=== PATIENT | male | born 1960 ===

== ENCOUNTER 2018-04-10 04:06 | Inpatient (IN) | payer MEDICARE ==
[2018-04-10] MEDS ORDERED: Sodium Chloride 0.9% 1,000 ML IV STA ×3 (04:37→05:49)
[2018-04-10] MEDS ORDERED: Iohexol 240 (50 ml) PO ONE (04:50)
[2018-04-10] MEDS ORDERED: Iohexol 240 (50 ml) ONE (05:00)
[2018-04-10] MEDS ORDERED: Morphine 4 MG/ML VIAL ONE ×3 (05:04→16:12)
--- NOTE | 2018-04-10 05:29 | ED PDOC ---
HPI: Male Pain Time Seen by Provider: 04/10/18 04:27 Chief Complaint (Nursing): Abdominal Pain Chief Complaint (Provider): problem History Per: Patient History/Exam Limitations: no limitations Onset/Duration Of Symptoms: Days (x 2) Current Symptoms Are (Timing): Still Present Quality Of Discomfort: "Pain" Associated Symptoms: Urinary Symptoms Additional Complaint(s): 57 year old male with a history of Hepatitis C and liver cirrhosis presents to the ED for evaluation of vomiting, abdominal pain and testicle pain for two days. Patient report intermittent vomiting, dark colored urine and pale colored stool associated with acute abdominal pain, testicular swelling and pain as well as redness to scrotal area and penis. Denies fever, cough, chest pain and shortness of breath. PMD: none provided Past Medical History Reviewed: Historical Data, Nursing Documentation, Vital Signs Vital Signs: Last Vital Signs Temp 98.0 F 04/10/18 04:21 Pulse 116 H 04/10/18 04:21 Resp 18 04/10/18 04:21 BP 143/75 04/10/18 04:21 Pulse Ox 98 04/10/18 04:21 - Medical History PMH: Hepatitis (C) Other PMH: Liver cirrhosis - Surgical History Surgical History: No Surg Hx - Family History Family History: States: Unknown Family Hx - Home Medications Home Medications: Ambulatory Orders Medication Instructions Recorded RX: Clonazepam [Klonopin] 1 mg PO BID 04/10/18 - Allergies Allergies/Adverse Reactions: Allergies Allergy/AdvReac Type Severity Reaction Status Date / Time paroxetine [From Paxil] Allergy Mild RASH Verified 04/10/18 04:33 quetiapine [From Seroquel] Allergy Mild RASH Verified 04/10/18 04:33 Review of Systems ROS Statement: Except As Marked, All Systems Reviewed And Found Negative Constitutional: Negative for: Fever Cardiovascular: Negative for: Chest Pain Respiratory: Negative for: Cough, Shortness of Breath Gastrointestinal: Positive for: Vomiting (intermittent), Abdominal Pain, Other (pale stool) Genitourinary Male: Positive for: Scrotal Pain (testicular swelling; pain and redness to to scrotal area and penis), Other (dark urine). Negative for: Dysuria, Incontinence, Hematuria, Penile Discharge Skin: Negative for: Rash Physical Exam - Reviewed Nursing Documentation Reviewed: Yes Vital Signs Reviewed: Yes - Physical Exam Appears: Positive for: No Acute Distress Head Exam: Positive for: ATRAUMATIC, NORMAL INSPECTION, NORMOCEPHALIC Skin: Positive for: Warm, Dry Eye Exam: Positive for: EOMI, Normal appearance, PERRL Neck: Positive for: Normal, Painless ROM, Supple Cardiovascular/Chest: Positive for: Regular Rate, Rhythm. Negative for: Murmur Respiratory: Positive for: Normal Breath Sounds. Negative for: Wheezing, Respiratory Distress Gastrointestinal/Abdominal: Positive for: Soft, Tenderness (diffuse tenderness). Negative for: Guarding, Rebound Male Genital Exam: Positive for: erythema (erythematous, indurated rash to the penis extending over the scrotal surface) Back: Positive for: Normal Inspection Extremity: Positive for: Normal ROM (upper and lower extremities). Negative for: Deformity, Swelling Neurologic/Psych: Positive for: Alert, Oriented. Negative for: Motor/Sensory Deficits - Laboratory Results Result Diagrams: 04/10/18 05:21 04/10/18 05:21 - ECG O2 Sat by Pulse Oximetry: 98 (RA) Pulse Ox Interpretation: Normal Medical Decision Making Medical Decision Makin:37 Impression: 57 year old male with abdominal pain, diarrheal illness and cellulitic process to perineum --CMP --CBC --Lipase --Lactic Acid --Urine dip --UA --CT Abd & Pelvis --Omnipaque 50 ml PO --PTT/PT --Morphine 4 mg IVP --Zofran 4 mg IV --Blood cx --Infectious [place] --Testes US 05:50 --EKG --CXR --Lactic Acid --Morphine 4 mg IV --NS IV --Vancomycin 1 gm in NS 250 ml --Zosyn 3.375 gm in NS 100 ml IV 07:00 --Patient signed out to Dr Gupta pending CT, US and reeval. Scribe Attestation: Documented by Radha Aleman acting as a scribe for Jefferson S Sikand MD Provider Scribe Attestation: All medical record entries made by the Scribe were at my direction and personally dictated by me. I have reviewed the chart and agree that the record accurately reflects my personal performance of the history, physical exam, m edical decision making, and the department course for this patient. I have also personally directed, reviewed, and agree with the discharge instructions and disposition. Disposition - Clinical Impression Clinical Impression: Sahil gangrene - Patient ED Disposition Is Patient to be Admitted: Transfer of Care - Disposition Disposition: Transfer of Care Disposition Time: 07:00 Condition: FAIR Patient Signed Over To: Tanmay Gupta Handoff Comments: pending CT and US
[2018-04-10 05:39] LABS: BASO % 0.1 % (0.0-2.0); EOS # 0.1 K/uL (0.0-0.7); EOS % 1.8 % (0.0-4.0); HEMOGLOBIN 13.7 g/dL (12.0-18.0); LYMPH # 0.3 K/uL (1.0-4.3); LYMPH % 7.3 % (20.0-40.0); MEAN CELL VOLUME 115.4 fl (80.0-94.0); MEAN CORPUSCULAR HEMOGLOBIN 38.8 pg (27.0-31.0); MEAN CORPUSCULAR HGB CONC 33.7 g/dL (33.0-37.0); MEAN PLATELET VOLUME 8.4 fl (7.2-11.7); MONO # 0.3 K/uL (0.0-0.8); MONO % 6.4 % (0.0-10.0); NEUT % 84.4 % (50.0-75.0); PLATELET COUNT 59 K/uL (130-400); RBC 3.52 Mil/uL (4.40-5.90); RED CELL DISTRIBUTION WIDTH 18.7 % (11.5-14.5); WHITE BLOOD COUNT 4.7 K/uL (4.8-10.8)
[2018-04-10 05:42] LABS: INR 2.3; PROTHROMBIN TIME 25.6 Seconds (9.8-13.1)
[2018-04-10 05:43] LABS: ALB/GLOB RATIO 0.4 (1.0-2.1); ALBUMIN 1.9 g/dL (3.5-5.0); ALT/SGPT 55 U/L (21-72); AST/SGOT 65 U/L (17-59); BLOOD UREA NITROGEN 23 mg/dl (9-20); CALCIUM 8.3 mg/dL (8.4-10.2); GFR NON-AFRICAN AMERICAN > 60; LIPASE 228 U/L (23-300)
[2018-04-10 05:45] LABS: PARTIAL THROMBOPLASTIN TIME 44.6 Seconds (25.6-37.1)
[2018-04-10] MEDS ORDERED: Morphine 4 MG/ML VIAL IVP ONE (05:45)
[2018-04-10] MEDS ORDERED: Piperacillin/Tazobact 3.375 GM in Sodium Chloride 0.9% 100 ML IV STA (05:49)
[2018-04-10 06:19] LABS: BANDS 2 % (0-2); EOSINOPHIL 1 % (0-7); LYMPHOCYTE 9 % (20-50); MONOCYTE 6 % (0-10); NEUTROPHIL 81 % (42-75); PLATELET ESTIMATE DECREASED (NORMAL); REACTIVE LYMPHOCYTES 1 % (0-0); TOTAL CELLS COUNTED 100
[2018-04-10 06:20] LABS: ANISOCYTOSIS SLIGHT
--- NOTE | 2018-04-10 07:13 | ED PDOC ---
- Laboratory Results Result Diagrams: 04/10/18 05:21 04/10/18 05:21 Interpretation Of Abn Labs: lactate elevated - ECG ECG: Positive for: Interpreted By Me, Viewed By Me ECG Rhythm: Positive for: Normal QRS, Sinus Rhythm O2 Sat by Pulse Oximetry: 98 (RA) Pulse Ox Interpretation: Normal - Radiology X-Ray: Interpreted by Me, Viewed By Me X-Ray Interpretation: No Acute Disease - CT Scan/US US Other Rad Studies (CT/US): Read By Radiologist Other Rad Interpretation: scrotal cellulitis; orchitis b/l - Progress ED Course And Treament: 1315: Spoke with surgery resident who saw pt. and spoke with Dr. Finch. They want urology consulted. 1335: Stable. Pain controlled. Spoke with Dr. De León. Made aware of presen tation, findings, and ct read. Made aware of moderate to severe erythema and significant joel gangrene. Does not want surgical room ready. States he will see pt. later and determine next step. Continue antibiotics and consult ID. 1339: Stable. Spoke with Dr. Tena. Made aware of all findings and presentation. Will admit tele. 1345: Spoke with Dr. Carbajal. Agrees with sandra and saw. No additional tx at this time. - Critical Care Total Time (In Min): 30 Documented Critical Care: Time excludes all time spent performint seperately billable procedures Medical Decision Making Medical Decision Makin 57 y/o male with abdominal pain and testicular swelling with cellulitis in the area, endorsed by Dr. Morales, pending US and CT. 0853 Testicular US FINDINGS: RIGHT TESTICLE: Measures cm. 2.8 x 2.0 x 2.0. Homogeneous echotexture. Diffusely increased vascularity consistent with acute orchitis. No mass. RIGHT EPIDIDYMIS: Normal size. Diffusely increased vascularity. Consistent with acute epididymitis. No mass. LEFT TESTICLE: Measures 2.8 x 2.1 x 1.8 cm. Homogeneous echotexture. Diffusely increased vascularity consistent with acute orchitis. No mass. LEFT EPIDIDYMIS: Normal size. Diffusely increased vascularity. Consistent with acute epididymis .No mass. HYDROCELE: None. VARICOCELE: None. OTHER FINDINGS: Heterogeneous diffusely thickened scrotal wall with hypervascularity suggestive of cellulitis. IMPRESSION: Suspect bilateral epididymo-orchitis with scrotal cellulitis. No evidence of neoplasm. No evidence of testicular torsion. Scribe Attestation: Documented by Yaquelin Siddiqi, acting as a scribe for Tanmay Gupta MD. Provider Scribe Attestation: All medical record entries made by the Scribe were at my direction and personally dictated by me. I have reviewed the chart and agree that the record accurately reflects my personal performance of the history, physical exam, medical decision making, and the department course for this patient. I have also personally directed, reviewed, and agree with the discharge instructions and disposition. Disposition Counseled Patient/Family Regarding: Studies Performed, Diagnosis - Clinical Impression Clinical Impression: Joel gangrene - POA Present On Arrival: None - Disposition Disposition: Admitted as In-Patient Disposition Time: 13:30 Condition: FAIR
[2018-04-10] MEDS ORDERED: Iohexol 300 100 ML IJ ONE (07:52)
[2018-04-10] MEDS ORDERED: Sodium Chloride 0.9% 50 ML IV ONE (07:53)
--- NOTE | 2018-04-10 08:56 | US ---
Date of service: 04/10/2018 HISTORY: testicular pain TECHNIQUE: Realtime sonography through the scrotum with color and doppler flow. COMPARISON: None Available. FINDINGS: RIGHT TESTICLE: Measures cm. 2.8 x 2.0 x 2.0. Homogeneous echotexture. Diffusely increased vascularity consistent with acute orchitis. No mass. RIGHT EPIDIDYMIS: Normal size. Diffusely increased vascularity. Consistent with acute epididymitis. No mass. LEFT TESTICLE: Measures 2.8 x 2.1 x 1.8 cm. Homogeneous echotexture. Diffusely increased vascularity consistent with acute orchitis. No mass. LEFT EPIDIDYMIS: Normal size. Diffusely increased vascularity. Consistent with acute epididymis.No mass. HYDROCELE: None. VARICOCELE: None. OTHER FINDINGS: Heterogeneous diffusely thickened scrotal wall with hypervascularity suggestive of cellulitis. IMPRESSION: Suspect bilateral epididymo-orchitis with scrotal cellulitis. No evidence of neoplasm. No evidence of testicular torsion.
--- NOTE | 2018-04-10 09:24 | CARD ---
APPROVED REPORT Date of service: 04/10/2018 EKG Measurement Heart [id number] <Conclusion> Normal sinus rhythm Left ventricular hypertrophy with repolarization abnormality Prolonged QT Abnormal ECG
--- NOTE | 2018-04-10 12:30 | CT ---
Date of service: 04/10/2018 PROCEDURE: CT Abdomen and Pelvis with contrast HISTORY: abd pain COMPARISON: None. TECHNIQUE: Contrast dose: 95 cc Omnipaque 300 Radiation dose: Total exam DLP = 1050.32 mGy-cm. This CT exam was performed using one or more of the following dose reduction techniques: Automated exposure control, adjustment of the mA and/or kV according to patient size, and/or use of iterative reconstruction technique. FINDINGS: LOWER THORAX: Minimal linear scar/atelectasis right middle lobe and left lower lobe. No infiltrate. No effusion. LIVER: Nodular contour consistent with hepatic cirrhosis. Multiple rounded low-attenuation lesions common nonspecific. No intrahepatic biliary dilatation. GALLBLADDER AND BILE DUCTS: Status post cholecystectomy. Dilated common bile duct up to approximately 13 mm diameter. Uncertain etiology. This is greater than should be expected from cholecystectomy alone. PANCREAS: Unremarkable. No gross lesion or ductal dilatation. SPLEEN: Splenomegaly. The spleen measures approximately 15.6 cm in greatest dimension. No mass. ADRENALS: Unremarkable. No mass. KIDNEYS AND URETERS: Nonobstructing 4 mm left lower pole renal calculus. No renal mass. No hydronephrosis. VASCULATURE: Unremarkable. No aortic aneurysm. There is atherosclerotic calcification of the abdominal aorta. 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 No evidence of esophageal varices. Please note that the portal vein and splenic vein appear patent, without evidence of intraluminal thrombus. BOWEL: No bowel obstruction. Nonspecific mural thickening of some loops of proximal jejunum. Possible enteritis or may be related to hypoalbuminemia associated with hepatocellular disease. APPENDIX: Normal appendix. PERITONEUM: No ascites or pneumoperitoneum. LYMPH NODES: Unremarkable. No enlarged lymph nodes. BLADDER: Unremarkable. REPRODUCTIVE: Normal prostate. Please note that there is emphysematous change in the perineum and scrotum, left greater than right, consistent with for knee a gangrene. There is no evidence of a drainable collection. There is mild bilateral hydrocele. BONES: No acute fracture. OTHER FINDINGS: None. IMPRESSION: Findings consistent with for any a gangrene. Hepatic cirrhosis. Splenomegaly. Varices. Cholecystectomy. Dilated CBD without intrahepatic biliary dilatation. Nonspecific. Mild mural thickening of loops of proximal jejunum, nonspecific. The findings in this examination were discussed by telephone with Dr. Gupta at 12:25 p.m. on 04/10/2018.
--- NOTE | 2018-04-10 12:39 | RAD ---
Date of service: 04/10/2018 HISTORY: admit COMPARISON: 07/26/2011 FINDINGS: LUNGS: No active pulmonary disease. PLEURA: No significant pleural effusion identified, no pneumothorax apparent. CARDIOVASCULAR: No atherosclerotic calcification present No radiographic findings to suggest acute or significant cardiovascular disease. OSSEOUS STRUCTURES: No significant abnormalities. VISUALIZED UPPER ABDOMEN: Normal. OTHER FINDINGS: None. IMPRESSION: No active disease. No significant interval change compared to the prior examination(s). Since Concordant results with the preliminary interpretation rendered by the emergency department physician procedure.
[2018-04-10 13:22] LABS: URINE BILIRUBIN SMALL (NEGATIVE); URINE BLOOD SMALL (NEGATIVE); URINE CLARITY CLEAR (Clear); URINE COLOR AMBER (YELLOW); URINE GLUCOSE (UA) NEG (NEGATIVE); URINE LEUKOCYTE ESTERASE NEG Leu/uL (Negative); URINE PROTEIN NEGATIVE (NEGATIVE)
--- NOTE | 2018-04-10 14:37 | CP.PCM.CON ---
History of Present Illness - History of Present Illness History of Present Illness: SURGERY CONSULT NOTE FOR DR. ROQUE Reason: gangrene of scrotal region 57M presents with pain and swelling in the scrotal region. Patient states he has had two days of symptoms. He admits to pain spreading in the perineum. He denies having these symptoms before in the past, denies abdominal pain, nausea, vomiting, fevers or chills. She admits to normal bowel movements. Patient denies any recent trauma to the region, denies any history of STDs, denies noticeable purulent drainage. PMH: Hepatic cirrhosis, DM PSH: Cholecystectomy Social: Admits to tobacco and alcohol abuse, admits to illicit drug use Allergies: as per chart Past Patient History - Past Social History Smoking Status: Never Smoked - PSYCHIATRIC Hx Substance Use: No - SURGICAL HISTORY Hx Surgeries: No Meds Allergies/Adverse Reactions: Allergies Allergy/AdvReac Type Severity Reaction Status Date / Time paroxetine [From Paxil] Allergy Mild RASH Verified 04/10/18 04:33 quetiapine [From Seroquel] Allergy Mild RASH Verified 04/10/18 04:33 Physical Exam - Constitutional Appears: Non-toxic, No Acute Distress Additional comments: very uncomfortable due to pain - Eye Exam Eye Exam: EOMI, PERRL - ENT Exam ENT Exam: Mucous Membranes Moist - Respiratory Exam Respiratory Exam: Clear to Auscultation Bilateral, NORMAL BREATHING PATTERN - Cardiovascular Exam Cardiovascular Exam: REGULAR RHYTHM, +S1, +S2 - GI/Abdominal Exam GI & Abdominal Exam: Soft. absent: Distended, Firm, Guarding, Rebound, Rigid, Tenderness - Rectal Exam Additional comments: erythema and tenderness perianally, scrotal swelling with severe erythema, blood noted in perineum region, no mass on rectal exam - Extremities Exam Extremities exam: Negative for: pedal edema, tenderness - Neurological Exam Neurological exam: Alert, Oriented x3 - Psychiatric Exam Psychiatric exam: Normal Affect, Normal Mood - Skin Skin Exam: Dry, Intact, Normal Color, Warm Results - Vital Signs Recent Vital Signs: Last Vital Signs Temp 98.0 F 04/10/18 04:21 Pulse 116 H 04/10/18 04:21 Resp 18 04/10/18 04:21 BP 143/75 04/10/18 04:21 Pulse Ox 98 04/10/18 13:51 - Labs Result Diagrams: 04/10/18 05:21 04/10/18 05:21 Labs: Laboratory Results - last 24 hr 04/10/18 04/10/18 04/10/18 05:21 05:21 05:21 WBC 4.7 L RBC 3.52 L Hgb 13.7 Hct 40.6 MCV 115.4 H MCH 38.8 H MCHC 33.7 RDW 18.7 H Plt Count 59 L MPV 8.4 Neut % (Auto) 84.4 H Lymph % (Auto) 7.3 L [place] % (Auto) 6.4 Eos % (Auto) 1.8 Baso % (Auto) 0.1 Neut # (Auto) 4.0 Lymph # (Auto) 0.3 L [place] # (Auto) 0.3 Eos # (Auto) 0.1 Baso # (Auto) 0.0 Neutrophils % (Manual) 81 H Band Neutrophils % 2 Lymphocytes % (Manual) 9 L Reactive Lymphs % 1 H Monocytes % (Manual) 6 Eosinophils % (Manual) 1 Platelet Estimate Decreased L Anisocytosis (manual) Slight Macrocytosis (manual) Moderate PT INR APTT Sodium 134 Potassium 3.6 Chloride 96 L Carbon Dioxide 27 Anion Gap 15 BUN 23 H Creatinine 1.0 Est GFR ( Amer) > 60 Est GFR (Non-Af Amer) > 60 Random Glucose 241 H Lactic Acid Calcium 8.3 L Total Bilirubin 6.7 H AST 65 H ALT 55 Alkaline Phosphatase 211 H Total Protein 6.3 Albumin 1.9 L Globulin 4.4 H Albumin/Globulin Ratio 0.4 L Lipase 228 Urine Color Urine Clarity Urine pH Ur Specific [place] Urine Protein Urine Glucose (UA) Urine Ketones Urine Blood Urine Nitrate Urine Bilirubin Urine Urobilinogen Ur Leukocyte Esterase Urine RBC (Auto) Urine Microscopic WBC Infectious [place] Assay Negative 04/10/18 04/10/18 04/10/18 05:21 05:21 09:25 WBC RBC Hgb Hct MCV MCH MCHC RDW Plt Count MPV Neut % (Auto) Lymph % (Auto) [place] % (Auto) Eos % (Auto) Baso % (Auto) Neut # (Auto) Lymph # (Auto) Cass[place] # (Auto) Eos # (Auto) Baso # (Auto) Neutrophils % (Manual) Band Neutrophils % Lymphocytes % (Manual) Reactive Lymphs % Monocytes % (Manual) Eosinophils % (Manual) Platelet Estimate Anisocytosis (manual) Macrocytosis (manual) PT 25.6 H INR 2.3 APTT 44.6 H Sodium Potassium Chloride Carbon Dioxide Anion Gap BUN Creatinine Est GFR ( Amer) Est GFR (Non-Af Amer) Random Glucose Lactic Acid 4.6 H* 2.4 H Calcium Total Bilirubin AST ALT Alkaline Phosphatase Total Protein Albumin Globulin Albumin/Globulin Ratio Lipase Urine Color Urine Clarity Urine pH Ur Specific [place] Urine Protein Urine Glucose (UA) Urine Ketones Urine Blood Urine Nitrate Urine Bilirubin Urine Urobilinogen Ur Leukocyte Esterase Urine RBC (Auto) Urine Microscopic WBC Infectious [place] Assay 04/10/18 12:30 WBC RBC Hgb Hct MCV MCH MCHC RDW Plt Count MPV Neut % (Auto) Lymph % (Auto) [place] % (Auto) Eos % (Auto) Baso % (Auto) Neut # (Auto) Lymph # (Auto) [place] # (Auto) Eos # (Auto) Baso # (Auto) Neutrophils % (Manual) Band Neutrophils % Lymphocytes % (Manual) Reactive Lymphs % Monocytes % (Manual) Eosinophils % (Manual) Platelet Estimate Anisocytosis (manual) Macrocytosis (manual) PT INR APTT Sodium Potassium Chloride Carbon Dioxide Anion Gap BUN Creatinine Est GFR ( Amer) Est GFR (Non-Af Amer) Random Glucose Lactic Acid Calcium Total Bilirubin AST ALT Alkaline Phosphatase Total Protein Albumin Globulin Albumin/Globulin Ratio Lipase Urine Color [place]ilar Urine Clarity Clear Urine pH 6.0 Ur Specific [place] 1.036 H Urine Protein Negative Urine Glucose (UA) Neg Urine Ketones Negative Urine Blood Small Urine Nitrate Negative Urine Bilirubin Small Urine Urobilinogen 4.0 Ur Leukocyte Esterase Neg Urine RBC (Auto) 2 Urine Microscopic WBC 3 Infectious [place] Assay Assessment & Plan - Assessment and Plan (Free Text) Assessment: 57M with Sahil's gangrene CT shows emphysematous changes in scrotal and perineum Plan: - NPO - IVF - Pain control - Antibiotics - FFP transfusion - PRBCs on hold - Patient will require an operation - Urologist Dr. Philippe on board Discussed with Dr Carmelo Lomas
[2018-04-10] MEDS ORDERED: Morphine 4 MG/ML VIAL IV ONE (14:54)
[2018-04-10] MEDS ORDERED: Sodium Chloride 0.9% 1,000 ML IV SCH ×2 (15:00→15:15)
[2018-04-10] MEDS ORDERED: Rocuronium 10 mg/ml (5 ml) ONE (16:32)
[2018-04-10] MEDS ORDERED: Succinylcholine Chloride 20 mg/ml Syr (5 ml) IV ONE (16:32)
[2018-04-10] MEDS ORDERED: Etomidate 20 mg/10ml Inj IV ONE (16:32)
[2018-04-10] MEDS ORDERED: Gentamicin 80mg/50ml NS 0 MG/0 ML BAG IVPB ONE (17:09)
--- NOTE | 2018-04-10 17:46 | ED PDOC ---
- Laboratory Results Result Diagrams: 04/10/18 05:21 04/10/18 05:21 - ECG O2 Sat by Pulse Oximetry: 95 Medical Decision Making Medical Decision Makin:00 Patient is signed out to me by Tanmay Gupta MD for veinous occlusion pending bloodwork and evaluation by . Scribe Attestation: Documented byJulissa Russell, acting as a scribe for Julissa Nails MD. Provider Scribe Attestation: All medical record entries made by the Scribe were at my direction and personally dictated by me. I have reviewed the chart and agree that the record accurately reflects my personal performance of the history, physical exam, medical decision making, and the department course for this patient. I have also personally directed, reviewed, and agree with the discharge instructions and disposition. Disposition - Clinical Impression Clinical Impression: Sahil gangrene - Disposition Condition: FAIR
--- NOTE | 2018-04-10 18:15 | CP.PCM.HP ---
History of Present Illness - History of Present Illness History of Present Illness: This is a 57 y/o male admitted for increasing swelling and redness of scrotal sac and spreading to the perineal area which started 2 days ago. Sx was associated with pain and tenderness. 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 Lactic acid was 4.2 latelet is 59 WBC is normal. He denies any fever. 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 Hep C was treated recently. Present on Admission - Present on Admission Any Indicators Present on Admission: No History of DVT/PE: No History of Uncontrolled Diabetes: No Urinary Catheter: No Decubitus Ulcer Present: No Past Patient History - Past Social History Smoking Status: Never Smoked - PSYCHIATRIC Hx Substance Use: No - SURGICAL HISTORY Hx Surgeries: No Meds Allergies/Adverse Reactions: Allergies Allergy/AdvReac Type Severity Reaction Status Date / Time paroxetine [From Paxil] Allergy Mild RASH Verified 04/10/18 04:33 quetiapine [From Seroquel] Allergy Mild RASH Verified 04/10/18 04:33 Physical Exam - Exam Exam: Scrotal Swelling Additional comments: redness and tenderness of the whole scrotal sac Results - Vital Signs Recent Vital Signs: Last Vital Signs Temp 97.8 F 04/10/18 17:44 Pulse 111 H 04/10/18 17:44 Resp 18 04/10/18 17:44 BP 139/66 04/10/18 17:44 Pulse Ox 95 04/10/18 17:46 - Labs Result Diagrams: 04/10/18 05:21 04/10/18 05:21 Labs: Laboratory Results - last 24 hr 04/10/18 04/10/18 04/10/18 05:21 05:21 05:21 WBC 4.7 L RBC 3.52 L Hgb 13.7 Hct 40.6 MCV 115.4 H MCH 38.8 H MCHC 33.7 RDW 18.7 H Plt Count 59 L MPV 8.4 Neut % (Auto) 84.4 H Lymph % (Auto) 7.3 L Tyrrell % (Auto) 6.4 Eos % (Auto) 1.8 Baso % (Auto) 0.1 Neut # (Auto) 4.0 Lymph # (Auto) 0.3 L Tyrrell # (Auto) 0.3 Eos # (Auto) 0.1 Baso # (Auto) 0.0 Neutrophils % (Manual) 81 H Band Neutrophils % 2 Lymphocytes % (Manual) 9 L Reactive Lymphs % 1 H Monocytes % (Manual) 6 Eosinophils % (Manual) 1 Platelet Estimate Decreased L Anisocytosis (manual) Slight Macrocytosis (manual) Moderate PT INR APTT Sodium 134 Potassium 3.6 Chloride 96 L Carbon Dioxide 27 Anion Gap 15 BUN 23 H Creatinine 1.0 Est GFR ( Amer) > 60 Est GFR (Non-Af Amer) > 60 Random Glucose 241 H Lactic Acid Calcium 8.3 L Total Bilirubin 6.7 H AST 65 H ALT 55 Alkaline Phosphatase 211 H Total Protein 6.3 Albumin 1.9 L Globulin 4.4 H Albumin/Globulin Ratio 0.4 L Lipase 228 Urine Color Urine Clarity Urine pH Ur Specific [place] Urine Protein Urine Glucose (UA) Urine Ketones Urine Blood Urine Nitrate Urine Bilirubin Urine Urobilinogen Ur Leukocyte Esterase Urine RBC (Auto) Urine Microscopic WBC Infectious Tyrrell Assay Negative Blood Type Blood Type Confirm Antibody Screen Crossmatch BBK History Checked 04/10/18 04/10/18 04/10/18 05:21 05:21 09:25 WBC RBC Hgb Hct MCV MCH MCHC RDW Plt Count MPV Neut % (Auto) Lymph % (Auto) Tyrrell % (Auto) Eos % (Auto) Baso % (Auto) Neut # (Auto) Lymph # (Auto) Tyrrell # (Auto) Eos # (Auto) Baso # (Auto) Neutrophils % (Manual) Band Neutrophils % Lymphocytes % (Manual) Reactive Lymphs % Monocytes % (Manual) Eosinophils % (Manual) Platelet Estimate Anisocytosis (manual) Macrocytosis (manual) PT 25.6 H INR 2.3 APTT 44.6 H Sodium Potassium Chloride Carbon Dioxide Anion Gap BUN Creatinine Est GFR ( Amer) Est GFR (Non-Af Amer) Random Glucose Lactic Acid 4.6 H* 2.4 H Calcium Total Bilirubin AST ALT Alkaline Phosphatase Total Protein Albumin Globulin Albumin/Globulin Ratio Lipase Urine Color Urine Clarity Urine pH Ur Specific [place] Urine Protein Urine Glucose (UA) Urine Ketones Urine Blood Urine Nitrate Urine Bilirubin Urine Urobilinogen Ur Leukocyte Esterase Urine RBC (Auto) Urine Microscopic WBC Infectious Tyrrell Assay Blood Type Blood Type Confirm Antibody Screen Crossmatch BBK History Checked 01/03/19 01/03/19 01/03/19 12:30 15:45 16:05 WBC RBC Hgb Hct MCV MCH MCHC RDW Plt Count MPV Neut % (Auto) Lymph % (Auto) Tyrrell % (Auto) Eos % (Auto) Baso % (Auto) Neut # (Auto) Lymph # (Auto) Tyrrell # (Auto) Eos # (Auto) Baso # (Auto) Neutrophils % (Manual) Band Neutrophils % Lymphocytes % (Manual) Reactive Lymphs % Monocytes % (Manual) Eosinophils % (Manual) Platelet Estimate Anisocytosis (manual) Macrocytosis (manual) PT INR APTT Sodium Potassium Chloride Carbon Dioxide Anion Gap BUN Creatinine Est GFR ( Amer) Est GFR (Non-Af Amer) Random Glucose Lactic Acid Calcium Total Bilirubin AST ALT Alkaline Phosphatase Total Protein Albumin Globulin Albumin/Globulin Ratio Lipase Urine Color Pilar Urine Clarity Clear Urine pH 6.0 Ur Specific [place] 1.036 H Urine Protein Negative Urine Glucose (UA) Neg Urine Ketones Negative Urine Blood Small Urine Nitrate Negative Urine Bilirubin Small Urine Urobilinogen 4.0 Ur Leukocyte Esterase Neg Urine RBC (Auto) 2 Urine Microscopic WBC 3 Infectious Tyrrell Assay Blood Type B POSITIVE Blood Type Confirm B POSITIVE Antibody Screen Negative Crossmatch See Detail BBK History Checked No verified bt Assessment & Plan (1) Sahil gangrene Status: Acute (2) Liver cirrhosis Status: Acute (3) Thrombocytopenia Status: Acute - Assessment and Plan (Free Text) Plan: Keep NPO IV antibiotics Surgical and urology eval ID eval. Medically stable for surgery
[2018-04-10] MEDS ORDERED: Vancomycin 1 g Inj ONE (18:21)
[2018-04-10] MEDS ORDERED: Piperacillin/Tazobact 3.375 gm Inj IVPB ONE (18:21)
[2018-04-10] MEDS ORDERED: Sodium Chloride 0.9% 500 ML IV ONE (18:35)
[2018-04-10] MEDS ORDERED: Lactated Ringer's 1,000 ML IV ONE ×2 (18:36→21:10)
[2018-04-10] MEDS ORDERED: Midazolam 2 MG/2 ML VIAL ONE (18:36)
[2018-04-10] MEDS: Piperacillin/Tazobact 3.375 GM in Sodium Chloride 0.9% 100 ML IVPB SCH ×2 (18:50→23:23)
[2018-04-10] MEDS ORDERED: Neostigmine 1:1000 (1 mg/ml) Inj ONE (19:16)
[2018-04-10] MEDS ORDERED: Sevoflurane - Inhalation Anesthetic Liq (250 ml) ONE (19:18)
--- NOTE | 2018-04-10 19:59 | PCM.SURG1 ---
Surgeon's Initial Post Op Note - Surgeon's Notes Surgeon: Carmelo NAIR, Denae NAIR Glue Maker: Cesilia, PGY3. Rere PGY1 Pre-Operative Diagnosis: Abscess for scrotum and perineum Operative Findings: see operative note Post-Operative Diagnosis: Abscess of scrotum and Perineum Operation Performed: Incision and drainage of scrotal fluid, exploration of scrotal sac, Incision and drainage of perineum Specimen/Specimens Removed: n/a Estimated Blood Loss: EBL {In ML}: 300 Drains Used: Erin Date of Surgery/Procedure: 04/10/18 Time of Surgery/Procedure: 20:00
[2018-04-10] MEDS: HYDROmorphone 0.5 mg/0.5 ml ISec IVP PRN ×2 (20:01→21:02)
[2018-04-10] MEDS ORDERED: HYDROmorphone 0.5 mg/0.5 ml ISec ONE (20:01)
[2018-04-10] MEDS ORDERED: Propofol 10 mg/ml Inj (20 ML) ONE (20:07)
[2018-04-10] MEDS ORDERED: Lactated Ringer's 1,000 ML IV SCH (20:30)
[2018-04-11] MEDS: Piperacillin/Tazobact 3.375 GM in Sodium Chloride 0.9% 100 ML IVPB SCH ×2 (04:57→14:46)
[2018-04-11] MEDS ORDERED: Sodium Chloride 0.9% 1,000 ML IV SCH ×2 (08:15→11:15)
[2018-04-11 09:07] LABS: BASO % 0.1 % (0.0-2.0); EOS # 0.3 K/uL (0.0-0.7); EOS % 2.9 % (0.0-4.0); HEMOGLOBIN 12.3 g/dL (12.0-18.0); LYMPH # 0.6 K/uL (1.0-4.3); MEAN CELL VOLUME 112.2 fl (80.0-94.0); MEAN CORPUSCULAR HEMOGLOBIN 38.7 pg (27.0-31.0); MEAN CORPUSCULAR HGB CONC 34.5 g/dL (33.0-37.0); MEAN PLATELET VOLUME 7.7 fl (7.2-11.7); MONO # 0.5 K/uL (0.0-0.8); MONO % 5.8 % (0.0-10.0); NEUT % 85.2 % (50.0-75.0); NRBC % 0.2 % (0.0-0.0); RBC 3.17 Mil/uL (4.40-5.90); RED CELL DISTRIBUTION WIDTH 20.5 % (11.5-14.5); WHITE BLOOD COUNT 9.4 K/uL (4.8-10.8)
[2018-04-11 09:23] LABS: ALB/GLOB RATIO 0.5 (1.0-2.1); ALBUMIN 1.9 g/dL (3.5-5.0); ALT/SGPT 48 U/L (21-72); AST/SGOT 74 U/L (17-59); BLOOD UREA NITROGEN 16 mg/dl (9-20); CALCIUM 7.6 mg/dL (8.4-10.2); GFR NON-AFRICAN AMERICAN > 60
--- NOTE | 2018-04-11 09:47 | CP.PCM.PN ---
Subjective - Date & Time of Evaluation Date of Evaluation: 04/11/18 Time of Evaluation: 09:40 - Subjective Subjective: SURGERY NOTE FOR DR. ROQUE 57M seen and examined at bedside. Patient states pain as resolved, denies any fevers or chills, states he feels thirsty. Patient was tachycardic throughout the night, s/p FFP and blood transfusion. Objective - Vital Signs/Intake and Output Vital Signs (last 24 hours): Temp Pulse Resp BP Pulse Ox 99.2 F 131 H 20 125/58 L 90 L 04/11/18 08:51 04/11/18 08:51 04/11/18 08:51 04/11/18 08:51 04/11/18 08:51 Intake and Output: 04/11/18 04/11/18 06:59 18:59 Intake Total 1780 Output Total 950 Balance 830 - Medications Medications: Current Medications Hydromorphone HCl (Dilaudid) 1 mg IVP Q4 PRN PRN Reason: Pain, severe (8-10) Last Admin: 04/11/18 08:45 Dose: 1 mg Vancomycin HCl 1 gm/ Sodium (Chloride) 250 mls @ 166.667 mls/hr IVPB DAILY PENNY; Protocol Piperacillin Sod/Tazobactam (Sod 3.375 gm/ Sodium Chloride) 100 mls @ 100 mls/hr IVPB Q6 PENNY; Protocol Last Admin: 04/11/18 04:57 Dose: 100 mls/hr Sodium Chloride (Sodium Chloride 0.9%) 1,000 mls @ 999 mls/hr IV .Q1H1M PENNY Stop: 04/12/18 08:14 Last Admin: 04/11/18 08:51 Dose: 999 mls/hr - Labs Labs: 04/11/18 09:03 04/11/18 09:03 PT 25.6 Seconds (9.8-13.1) H 04/10/18 05:21 INR 2.3 04/10/18 05:21 APTT 44.6 Seconds (25.6-37.1) H 04/10/18 05:21 - Constitutional Appears: Non-toxic, No Acute Distress - Respiratory Exam Respiratory Exam: Clear to Ausculation Bilateral, NORMAL BREATHING PATTERN - Cardiovascular Exam Cardiovascular Exam: Tachycardia, REGULAR RHYTHM, +S1, +S2 - GI/Abdominal Exam GI & Abdominal Exam: Soft. absent: Distended, Firm, Guarding, Rigid, Te nderness, Rebound - Rectal Exam Additional comments: scrotal sac drain in place, serosang output adama in place, draining sero sanguinous fluid - Extremities Exam Extremities Exam: absent: Pedal Edema, Tenderness - Neurological Exam Neurological Exam: Alert, Awake Assessment and Plan - Assessment and Plan (Free Text) Assessment: 57M s/p incision/drainage of left scrotal sac and perineum for infection POD#1 Plan: - Advance diet - Pain control - EKG, IVF Bolus - Daily dressing changes Further recs discuss with Dr. Carmelo Lomas, PGY3
[2018-04-11 10:14] LABS: ABG ALLEN TEST YES; ARTERIAL BLOOD GAS HCO3 22.7 mmol/L (21-28); ARTERIAL BLOOD GAS O2 SAT 78.2 % (95-98); ARTERIAL BLOOD GAS PCO2 47 mm/Hg (35-45); ARTERIAL BLOOD GAS PH 7.32 (7.35-7.45); ARTERIAL BLOOD GAS PO2 42 mm/Hg (80-100); ARTERIAL BLOOD GAS TCO2 25.6 mmol/L (22-28)
[2018-04-11] MEDS ORDERED: Dextrose 50% SYRINGE Inj (50 ml) ONE (10:49)
[2018-04-11] MEDS ORDERED: Thiamine 100 mg/ml Inj IM ONE (11:04)
[2018-04-11] MEDS ORDERED: Dextrose 50% SYRINGE Inj (50 ml) IVP ONE (11:04)
[2018-04-11] MEDS ORDERED: Multivitamin (MVI) 10 ML, Thiamine 100 MG, Folic Acid 1 MG in Dextrose 5%/0.45% NS 1,00... IV ONE (11:05)
[2018-04-11] MEDS ORDERED: Thiamine 100 mg/ml Inj IV ONE (11:10)
[2018-04-11] MEDS ORDERED: Magnesium Sulfate 2 gm/50 ml 2 GM/50 ML BAG IV ONE (11:30)
[2018-04-11] MEDS: Dexmedetomidine Hydrochloride 400 MCG in Sodium Chloride 0.9% 96 ML IV ONE ×2 (12:03→19:00)
--- NOTE | 2018-04-11 14:02 | CP.PCM.CON ---
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 Was called to assess patient post-op and for pain management. However, patient became agitated and was transferred to ICU. He's now on Precedex for sedation. Work-up is pending. He had been Dilaudid IV PRN for pain, but that has now been held. Thiamine is being infused but per sister patient hadn't been drinking for a couple of years. Past Patient History - Past Medical History & Family History Past Medical History?: Yes - Past Social History Smoking Status: Current Some Days Smoker - MUSCULOSKELETAL/RHEUMATOLOGICAL Hx Falls: No - PSYCHIATRIC Hx Substance Use: Yes (marijuana) - SURGICAL HISTORY Hx Surgeries: No - ANESTHESIA Hx Anesthesia: Yes Hx Anesthesia Reactions: No Meds Allergies/Adverse Reactions: Allergies Allergy/AdvReac Type Severity Reaction Status Date / Time paroxetine [From Paxil] Allergy Mild RASH Verified 04/10/18 04:33 quetiapine [From Seroquel] Allergy Mild RASH Verified 04/10/18 04:33 - Medications Medications: Current Medications Acetaminophen (Tylenol 325mg Tab) 650 mg PO Q6 PRN PRN Reason: Fever >100.4 F Acetaminophen (Tylenol 650 Mg Supp) 650 mg DE Q6 PRN PRN Reason: Fever >100.4 F Hydromorphone HCl (Dilaudid) 1 mg IVP Q4 PRN PRN Reason: Pain, severe (8-10) Last Admin: 04/11/18 08:45 Dose: 1 mg Vancomycin HCl 1 gm/ Sodium (Chloride) 250 mls @ 166.667 mls/hr IVPB DAILY PENNY; Protocol Last Admin: 04/11/18 09:47 Dose: 166.667 mls/hr Piperacillin Sod/Tazobactam (Sod 3.375 gm/ Sodium Chloride) 100 mls @ 100 mls/hr IVPB Q6 PENNY; Protocol Last Admin: 04/11/18 04:57 Dose: 100 mls/hr Sodium Chloride (Sodium Chloride 0.9%) 1,000 mls @ 999 mls/hr IV .Q1H1M PENNY Stop: 04/12/18 08:14 Last Admin: 04/11/18 08:51 Dose: 999 mls/hr Sodium Chloride (Sodium Chloride 0.9%) 1,000 mls @ 999 mls/hr IV .Q1H1M PENNY Stop: 04/12/18 11:04 Multivitamins/Vitamin C 10 ml/Thiamine HCl 100 mg/ Folic Acid 1 mg/ Dextrose/Sodium Chloride 1,011.2 mls @ 100 mls/hr IV .Q10H7M ONE Stop: 04/11/18 21:11 Last Admin: 04/11/18 12:01 Dose: 100 mls/hr Thiamine HCl 100 mg/ Sodium (Chloride) 101 mls @ 100 mls/hr IV DAILY PENNY Dexmedetomidine HCl 400 mcg/ (Sodium Chloride) 100 mls @ 4.65 mls/hr IV .[id number] ONE; Protocol Stop: 04/12/18 08:52 Last Admin: 04/11/18 12:03 Dose: 0.2 mcg/kg/hr, 4.65 mls/hr Physical Exam - Constitutional Additional comments: Sedated. Results - Vital Signs Recent Vital Signs: Last Vital Signs Temp 102.2 F H 04/11/18 12:00 Pulse 135 H 04/11/18 09:00 Resp 20 04/11/18 08:51 BP 125/58 L 04/11/18 08:51 Pulse Ox 90 L 04/11/18 08:51 - Labs Result Diagrams: 04/11/18 09:03 04/11/18 09:03 Labs: Laboratory Results - last 24 hr 04/10/18 04/10/18 04/11/18 15:45 16:05 09:03 WBC 9.4 D RBC 3.17 L Hgb 12.3 Hct 35.5 MCV 112.2 H D MCH 38.7 H MCHC 34.5 RDW 20.5 H Plt Count 61 L MPV 7.7 Neut % (Auto) 85.2 H Lymph % (Auto) 6.0 L Smith % (Auto) 5.8 Eos % (Auto) 2.9 Baso % (Auto) 0.1 Neut # (Auto) 8.0 H Lymph # (Auto) 0.6 L Smith # (Auto) 0.5 Eos # (Auto) 0.3 Baso # (Auto) 0.0 pCO2 pO2 HCO3 ABG pH ABG Total CO2 ABG O2 Saturation ABG Base Excess David Test ABG Potassium A-a O2 Difference Glucose Lactate Liter Flow FiO2 Crit Value Called To Crit Value Called By Crit Value Read Back Blood Gas Notified Time Sodium Potassium Chloride Carbon Dioxide Anion Gap BUN Creatinine Est GFR ( Amer) Est GFR (Non-Af Amer) POC Glucose (mg/dL) Random Glucose Lactic Acid Calcium Phosphorus Magnesium Total Bilirubin AST ALT Alkaline Phosphatase Total Protein Albumin Globulin Albumin/Globulin Ratio Arterial Blood Potassium Blood Type B POSITIVE Blood Type Confirm B POSITIVE Antibody Screen Negative Crossmatch See Detail BBK History Checked No verified bt 04/11/18 04/11/18 04/11/18 09:03 09:11 10:13 WBC RBC Hgb Hct MCV MCH MCHC RDW Plt Count MPV Neut % (Auto) Lymph % (Auto) Smith % (Auto) Eos % (Auto) Baso % (Auto) Neut # (Auto) Lymph # (Auto) Smith # (Auto) Eos # (Auto) Baso # (Auto) pCO2 47 H pO2 42 L* HCO3 22.7 ABG pH 7.32 L ABG Total CO2 25.6 ABG O2 Saturation 78.2 L ABG Base Excess -2.2 L David Test Yes ABG Potassium 4.5 A-a O2 Difference 120.0 Glucose 93 Lactate 5.6 H* Liter Flow 3 FiO2 31.0 Crit Value Called To Octavio robbins Crit Value Called By 15 Crit Value Read Back Y Blood Gas Notified Time 1013 Sodium 134 134.0 Potassium 4.4 Chloride 100 104.0 Carbon Dioxide 25 Anion Gap 13 BUN 16 Creatinine 0.9 Est GFR ( Amer) > 60 Est GFR (Non-Af Amer) > 60 POC Glucose (mg/dL) Random Glucose 91 Lactic Acid 5.2 H* Calcium 7.6 L Phosphorus 4.7 H Magnesium 1.7 Total Bilirubin 7.4 H AST 74 H ALT 48 Alkaline Phosphatase 163 H D Total Protein 6.0 L Albumin 1.9 L Globulin 4.1 H Albumin/Globulin Ratio 0.5 L Arterial Blood Potassium 4.5 Blood Type Blood Type Confirm Antibody Screen Crossmatch BBK History Checked 04/11/18 10:46 WBC RBC Hgb Hct MCV MCH MCHC RDW Plt Count MPV Neut % (Auto) Lymph % (Auto) Smith % (Auto) Eos % (Auto) Baso % (Auto) Neut # (Auto) Lymph # (Auto) Smith # (Auto) Eos # (Auto) Baso # (Auto) pCO2 pO2 HCO3 ABG pH ABG Total CO2 ABG O2 Saturation ABG Base Excess David Test ABG Potassium A-a O2 Difference Glucose Lactate Liter Flow FiO2 Crit Value Called To Crit Value Called By Crit Value Read Back Blood Gas Notified Time Sodium Potassium Chloride Carbon Dioxide Anion Gap BUN Creatinine Est GFR ( Amer) Est GFR (Non-Af Amer) POC Glucose (mg/dL) 75 Random Glucose Lactic Acid Calcium Phosphorus Magnesium Total Bilirubin AST ALT Alkaline Phosphatase Total Protein Albumin Globulin Albumin/Globulin Ratio Arterial Blood Potassium Blood Type Blood Type Confirm Antibody Screen Crossmatch BBK History Checked Assessment & Plan - Assessment and Plan (Free Text) Assessment: 57 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 Work-up for AMS is ungoing, possible septic picture. Pain management is held for now due to AMS. - care per ICU - consider low dose Morphine IV if patient recovers mentally and needs pain control
--- NOTE | 2018-04-11 14:50 | CP.PCM.CON ---
History of Present Illness - History of Present Illness History of Present Illness: 57M presents with pain and swelling in the scrotal region as well as pain spreading in the perineum with purulent drainage ID cobnsulted for antibiotic maangement PMH: Hepatic cirrhosis, DM Hep C treated PSH: Cholecystectomy Social: Admits to tobacco and alcohol abuse, admits to illicit drug use Allergies: as per chart Review of Systems - Review of Systems Systems not reviewed;Unavailable: Altered Mental Status All systems: reviewed and no additional remarkable complaints except - Constitutional Constitutional: As Per HPI - EENT Eyes: absent: As Per HPI, Blind Spots, Blurred Vision, Change in Vision, Decreased Night Vision, Diplopia, Discharge, Dry Eye, Exophthalmos, Floaters, Irritation, Itchy Eyes, Loss of Peripheral Vision, Pain, Photophobia, Requires Corrective Lenses, Sees Flashes, Spots in Vision, Tunnel Vision, Other Visual Disturbances, Loss of Vision, Other Ears: absent: As Per HPI, Decreased Hearing, Ear Discharge, Ear Pain, Tinnitus, Abnormal Hearing, Disequilibrium, Dizziness, Other Nose/Mouth/Throat: absent: As Per HPI, Epistaxis, Nasal Congestion, Nasal Discharge, Nasal Obstruction, Nasal Trauma, Nose Pain, Post Nasal Drip, Sinus Pain, Sinus Pressure, Bleeding Gums, Change in Voice, Dental Pain, Dry Mouth, Dysphagia, Halitosis, Hoarsness, Lip Swelling, Mouth Lesions, Mouth Pain, Odynophagia, Sore Throat, Throat Swelling, Tongue Swelling, Facial Pain, Neck Pain, Neck Mass, Other - Cardiovascular Cardiovascular: absent: As Per HPI, Acrocyanosis, Chest Pain, Chest Pain at Rest, Chest Pain with Activity, Claudication, Diaphoresis, Dyspnea, Dyspnea on Exertion, Edema, Irregular Heart Rhythm, Pain Radiating to Arm/Neck/Jaw, Leg Edema, Leg Ulcers, Lightheadedness, Orthopnea, Palpitations, Paroxysmal Nocturnal Dyspnea, Pedal Edema, Radiating Pain, Rapid Heart Rate, Slow Heart Rate, Syncope, Other - Respiratory Respiratory: As Per HPI, Cough, Dyspnea - Gastrointestinal Gastrointestinal: absent: As Per HPI, Abdominal Pain, Belching, Bloating, Change in Bowel Habits, Change in Stool Character, Coffee Ground Emesis, Constipation, Cramping, Diarrhea, Dyspepsia, Dysphagia, Early Satiety, Excessive Flatus, Fecal Incontinence, Heartburn, Hematemesis, Hematochezia, Loose Stools, Melena, Nausea, Odynophagia, Temesmus, Vomiting, Other - Genitourinary Genitourinary: absent: As Per HPI, Change in Urinary Stream, Difficulty Urinating, Dysuria, Flank Pain, Hematuria, Pyuria, Nocturia, Urinary Incontinence, Urinary Frequency, Urinary Hesitance, Urinary Urgency, Voiding Freq/Small Amts, Freq UTI, Hx Renal/Bladder Calculi, Hx /Renal Surgery, Bladder Distension, Other - Musculoskeletal Musculoskeletal: As Per HPI - Integumentary Integumentary: As Per HPI, Skin Pain, Wounds - Neurological Neurological: As Per HPI - Psychiatric Psychiatric: absent: As Per HPI, Abnormal Sleep Pattern, Anhedonia, Anxiety, Auditory Hallucinations, Behavioral Changes, Change in Appetite, Change in Libido, Confusion, Depression, Difficulty Concentrating, Hallucinations, Homicid al Ideation, Hopelessness, Irritability, Memory Loss, Mood Swings, Panic Attacks, Paranoia, Suicidal Ideation, Visual Hallucinations, Tactile Hallucinations, Other - Endocrine Endocrine: absent: As Per HPI, Change in Body Appearance, Change in Libido, Cold Intolorance, Deepening of Voice, Excessive Sweating, Fatigue, Flushing, Heat Intolorance, Increase in Ring/Shoe/Hat Size, Palpitations, Polydipsia, Polyphagia, Polyuria, Other - Hematologic/Lymphatic Hematologic: absent: As Per HPI, Easy Bleeding, Easy Bruising, Lymphadenopathy, Other Past Patient History - Past Medical History & Family History Past Medical History?: Yes - Past Social History Smoking Status: Current Some Days Smoker - MUSCULOSKELETAL/RHEUMATOLOGICAL Hx Falls: No - PSYCHIATRIC Hx Substance Use: Yes (marijuana) - SURGICAL HISTORY Hx Surgeries: No - ANESTHESIA Hx Anesthesia: Yes Hx Anesthesia Reactions: No Meds Allergies/Adverse Reactions: Allergies Allergy/AdvReac Type Severity Reaction Status Date / Time paroxetine [From Paxil] Allergy Mild RASH Verified 04/10/18 04:33 quetiapine [From Seroquel] Allergy Mild RASH Verified 04/10/18 04:33 - Medications Medications: Current Medications Acetaminophen (Tylenol 325mg Tab) 650 mg PO Q6 PRN PRN Reason: Fever >100.4 F Acetaminophen (Tylenol 650 Mg Supp) 650 mg [place] Q6 PRN PRN Reason: Fever >100.4 F Hydromorphone HCl (Dilaudid) 1 mg IVP Q4 PRN PRN Reason: Pain, severe (8-10) Last Admin: 04/11/18 08:45 Dose: 1 mg Vancomycin HCl 1 gm/ Sodium (Chloride) 250 mls @ 166.667 mls/hr IVPB DAILY [facility]; Protocol Last Admin: 04/11/18 09:47 Dose: 166.667 mls/hr Piperacillin Sod/Tazobactam (Sod 3.375 gm/ Sodium Chloride) 100 mls @ 100 mls/hr IVPB Q6 [facility]; Protocol Last Admin: 04/11/18 14:46 Dose: 100 mls/hr Sodium Chloride (Sodium Chloride 0.9%) 1,000 mls @ 999 mls/hr IV .Q1H1M [facility] Stop: 04/12/18 08:14 Last Admin: 04/11/18 08:51 Dose: 999 mls/hr Sodium Chloride (Sodium Chloride 0.9%) 1,000 mls @ 999 mls/hr IV .Q1H1M [facility] Stop: 04/12/18 11:04 Multivitamins/Vitamin C 10 ml/Thiamine HCl 100 mg/ Folic Acid 1 mg/ Dextrose/Sodium Chloride 1,011.2 mls @ 100 mls/hr IV .Q10H7M ONE Stop: 04/11/18 21:11 Last Admin: 04/11/18 12:01 Dose: 100 mls/hr Thiamine HCl 100 mg/ Sodium (Chloride) 101 mls @ 100 mls/hr IV DAILY [facility] Dexmedetomidine HCl 400 mcg/ (Sodium Chloride) 100 mls @ 4.65 mls/hr IV .[id number] [facility]; Protocol Stop: 04/12/18 08:52 Last Titration: 04/11/18 14:41 Dose: 0.4 mcg/kg/hr, 9.3 mls/hr Physical Exam - Constitutional Appears: Toxic, In Acute Distress - Head Exam Head Exam: ATRAUMATIC, NORMAL INSPECTION, NORMOCEPHALIC - Eye Exam Eye Exam: EOMI, PERRL. absent: Scleral icterus - ENT Exam ENT Exam: Mucous Membranes Dry, Normal External Ear Exam, Normal Oropharynx - Neck Exam Neck exam: Negative for: Lymphadenopathy, Thyromegaly - Respiratory Exam Respiratory Exam: Decreased Breath Sounds, Prolonged Expiratory Phase, Rhonchi - Cardiovascular Exam Cardiovascular Exam: Tachycardia, REGULAR RHYTHM, +S1, +S2 - GI/Abdominal Exam GI & Abdominal Exam: Diminished Bowel Sounds, Distended, Soft. absent: Rebound, Rigid, Tenderness - Rectal Exam Rectal Exam: Deferred - Exam Exam: Scrotal Swelling, Testicular Tenderness External exam: Erythema - Extremities Exam Extremities exam: Positive for: pedal edema, pedal pulses present. Negative for: calf tenderness, tenderness - Back Exam Back exam: absent: CVA tenderness (L), CVA tenderness (R) - Neurological Exam Neurological exam: Altered, CN II-XII Intact - Psychiatric Exam Psychiatric exam: Depressed - Skin Skin Exam: Dry, Intact Results - Vital Signs Recent Vital Signs: Last Vital Signs Temp 102.2 F H 04/11/18 12:00 Pulse 120 H 04/11/18 14:28 Resp 15 04/11/18 14:28 BP 106/55 L 04/11/18 14:28 Pulse Ox 100 04/11/18 14:28 - Labs Result Diagrams: 04/11/18 09:03 04/11/18 09:03 Labs: Laboratory Results - last 24 hr 04/10/18 04/10/18 04/11/18 15:45 16:05 09:03 WBC 9.4 D RBC 3.17 L Hgb 12.3 Hct 35.5 MCV 112.2 H D MCH 38.7 H MCHC 34.5 RDW 20.5 H Plt Count 61 L MPV 7.7 Neut % (Auto) 85.2 H Lymph % (Auto) 6.0 L [place] % (Auto) 5.8 Eos % (Auto) 2.9 Baso % (Auto) 0.1 Neut # (Auto) 8.0 H Lymph # (Auto) 0.6 L [place] # (Auto) 0.5 Eos # (Auto) 0.3 Baso # (Auto) 0.0 pCO2 pO2 HCO3 ABG pH ABG Total CO2 ABG O2 Saturation ABG Base Excess David Test ABG Potassium A-a O2 Difference Glucose Lactate Liter Flow FiO2 Crit Value Called To Crit Value Called By Crit Value Read Back Blood Gas Notified Time Sodium Potassium Chloride Carbon Dioxide Anion Gap BUN Creatinine Est GFR ( Amer) Est GFR (Non-Af Amer) POC Glucose (mg/dL) Random Glucose Lactic Acid Calcium Phosphorus Magnesium Total Bilirubin AST ALT Alkaline Phosphatase Total Protein Albumin Globulin Albumin/Globulin Ratio Arterial Blood Potassium Blood Type B POSITIVE Blood Type Confirm B POSITIVE Antibody Screen Negative Crossmatch See Detail BBK History Checked No verified bt 04/11/18 04/11/18 04/11/18 09:03 09:11 10:13 WBC RBC Hgb Hct MCV MCH MCHC RDW Plt Count MPV Neut % (Auto) Lymph % (Auto) [place] % (Auto) Eos % (Auto) Baso % (Auto) Neut # (Auto) Lymph # (Auto) [place] # (Auto) Eos # (Auto) Baso # (Auto) pCO2 47 H pO2 42 L* HCO3 22.7 ABG pH 7.32 L ABG Total CO2 25.6 ABG O2 Saturation 78.2 L ABG Base Excess -2.2 L David Test Yes ABG Potassium 4.5 A-a O2 Difference 120.0 Glucose 93 Lactate 5.6 H* Liter Flow 3 FiO2 31.0 Crit Value Called To Octavio robbins Crit Value Called By 15 Crit Value Read Back Y Blood Gas Notified Time 1013 Sodium 134 134.0 Potassium 4.4 Chloride 100 104.0 Carbon Dioxide 25 Anion Gap 13 BUN 16 Creatinine 0.9 Est GFR ( Amer) > 60 Est GFR (Non-Af Amer) > 60 POC Glucose (mg/dL) Random Glucose 91 Lactic Acid 5.2 H* Calcium 7.6 L Phosphorus 4.7 H Magnesium 1.7 Total Bilirubin 7.4 H AST 74 H ALT 48 Alkaline Phosphatase 163 H D Total Protein 6.0 L Albumin 1.9 L Globulin 4.1 H Albumin/Globulin Ratio 0.5 L Arterial Blood Potassium 4.5 Blood Type Blood Type Confirm Antibody Screen Crossmatch BBK History Checked 04/11/18 10:46 WBC RBC Hgb Hct MCV MCH MCHC RDW Plt Count MPV Neut % (Auto) Lymph % (Auto) [place] % (Auto) Eos % (Auto) Baso % (Auto) Neut # (Auto) Lymph # (Auto) [place] # (Auto) Eos # (Auto) Baso # (Auto) pCO2 pO2 HCO3 ABG pH ABG Total CO2 ABG O2 Saturation ABG Base Excess David Test ABG Potassium A-a O2 Difference Glucose Lactate Liter Flow FiO2 Crit Value Called To Crit Value Called By Crit Value Read Back Blood Gas Notified Time Sodium Potassium Chloride Carbon Dioxide Anion Gap BUN Creatinine Est GFR ( Amer) Est GFR (Non-Af Amer) POC Glucose (mg/dL) 75 Random Glucose Lactic Acid Calcium Phosphorus Magnesium Total Bilirubin AST ALT Alkaline Phosphatase Total Protein Albumin Globulin Albumin/Globulin Ratio Arterial Blood Potassium Blood Type Blood Type Confirm Antibody Screen Crossmatch BBK History Checked Assessment & Plan (1) Sepsis Status: Acute (2) Sahil gangrene Status: Acute (3) Liver cirrhosis Status: Acute (4) Thrombocytopenia Status: Acute - Assessment and Plan (Free Text) Assessment: impending resp failure sepsis fourniers gangrene hx cirrhosis DMII ETOH wiithdrawl cont IV antibiotics, follow up - may need further debridement await cultures chack Vanco levels wound care
--- NOTE | 2018-04-11 14:54 | CP.PCM.PN ---
Subjective - Date & Time of Evaluation Date of Evaluation: 04/11/18 Time of Evaluation: 14:49 - Subjective Subjective: Gu note. Scrotal wound intact. Pt has pulled out RACHEL drain Perineal drain intact scrotal swellig has dwcreased. Plan. since therewas no abcess in scrotum will leave drain out unless scrotal swelling or necrosis occurs. Denae Objective - Vital Signs/Intake and Output Vital Signs (last 24 hours): Temp Pulse Resp BP Pulse Ox 102.2 F H 120 H 15 106/55 L 100 04/11/18 12:00 04/11/18 14:28 04/11/18 14:28 04/11/18 14:28 04/11/18 14:28 Intake and Output: 04/11/18 04/11/18 06:59 18:59 Intake Total 1780 750 Output Total 950 Balance 830 750 - Medications Medications: Current Medications Acetaminophen (Tylenol 325mg Tab) 650 mg PO Q6 PRN PRN Reason: Fever >100.4 F Acetaminophen (Tylenol 650 Mg Supp) 650 mg [place] Q6 PRN PRN Reason: Fever >100.4 F Hydromorphone HCl (Dilaudid) 1 mg IVP Q4 PRN PRN Reason: Pain, severe (8-10) Last Admin: 04/11/18 08:45 Dose: 1 mg Vancomycin HCl 1 gm/ Sodium (Chloride) 250 mls @ 166.667 mls/hr IVPB DAILY [facility]; Protocol Last Admin: 04/11/18 09:47 Dose: 166.667 mls/hr Piperacillin Sod/Tazobactam (Sod 3.375 gm/ Sodium Chloride) 100 mls @ 100 mls/hr IVPB Q6 [facility]; Protocol Last Admin: 04/11/18 14:46 Dose: 100 mls/hr Sodium Chloride (Sodium Chloride 0.9%) 1,000 mls @ 999 mls/hr IV .Q1H1M [facility] Stop: 04/12/18 08:14 Last Admin: 04/11/18 08:51 Dose: 999 mls/hr Sodium Chloride (Sodium Chloride 0.9%) 1,000 mls @ 999 mls/hr IV .Q1H1M [facility] Stop: 04/12/18 11:04 Multivitamins/Vitamin C 10 ml/Thiamine HCl 100 mg/ Folic Acid 1 mg/ Dextrose/Sodium Chloride 1,011.2 mls @ 100 mls/hr IV .Q10H7M ONE Stop: 04/11/18 21:11 Last Admin: 04/11/18 12:01 Dose: 100 mls/hr Thiamine HCl 100 mg/ Sodium (Chloride) 101 mls @ 100 mls/hr IV DAILY [facility] Dexmedetomidine HCl 400 mcg/ (Sodium Chloride) 100 mls @ 4.65 mls/hr IV .[id number] [facility]; Protocol Stop: 04/12/18 08:52 Last Titration: 04/11/18 14:41 Dose: 0.4 mcg/kg/hr, 9.3 mls/hr - Labs Labs: 04/11/18 09:03 04/11/18 09:03 PT 25.6 Seconds (9.8-13.1) H 04/10/18 05:21 INR 2.3 04/10/18 05:21 APTT 44.6 Seconds (25.6-37.1) H 04/10/18 05:21
[2018-04-11] MEDS ORDERED: Iohexol 300 100 ML IJ ONE (16:10)
[2018-04-11] MEDS ORDERED: Sodium Chloride 0.9% 50 ML IV ONE (16:11)
--- NOTE | 2018-04-11 16:54 | CT ---
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 TECHNIQUE: Following the intravenous administration of iodinated contrast material, a CT examination of the abdomen and pelvis performed from the domes of the diaphragms to the symphysis pubis with reformatted datasets provided in axial, sagittal and coronal planes. Oral contrast was not administered as per referring physician request. Coronal and sagittal reformats were generated. Contrast dose: Omnipaque 300, 95 cc Radiation dose: Total exam DLP = 955.69 mGy-cm. This CT exam was performed using one or more of the following dose reduction techniques: Automated exposure control, adjustment of the mA and/or kV according to patient size, and/or use of iterative reconstruction technique. FINDINGS: LOWER THORAX: Interval bilateral infiltrates identified which are highly favored over atelectasis as nondependent lung is affected. Clinically correlate further. Cardiomegaly is stable. Elevated right hemidiaphragm reiterated. LIVER: Cirrhotic pattern reiterated. Nonspecific low-attenuation foci are again seen in the liver unchanged. GALLBLADDER AND BILE DUCTS: Prior cholecystectomy reiterated as well as dilatation of the extrahepatic biliary tree. PANCREAS: Unremarkable. No gross lesion or ductal dilatation. SPLEEN: Splenomegaly reiterated. ADRENALS: Unremarkable. No mass. KIDNEYS AND URETERS: Unremarkable. No hydronephrosis. No solid mass. VASCULATURE: Tremendous varices are cyst seen in the peritoneal and retroperitoneal spaces once again, particularly at the splenorenal distribution.. No aortic aneurysm. No aortic atherosclerotic calcification or mural plaque present. BOWEL: Prior administration oral contrast not seen at the distal large bowel with none on the small bowel. Small bowel is accordingly less well evaluated 7 the stomach which is distended with gas and a bit of fluid. There is now marked thickening of the left hemicolon including the rectosigmoid compatible with segmental colitis. APPENDIX: Normal appendix. PERITONEUM: Restrained motion degrades quality exam. No definitive suspicious peritoneal findings are identified at this time other than pericolic reaction minimally related to the sigmoid colon. LYMPH NODES: Unremarkable. No enlarged lymph nodes. BLADDER: Pierce catheter partially decompresses the urinary bladder with gas identified in the lumen. REPRODUCTIVE: Unremarkable. BONES: No acute fracture. OTHER FINDINGS: Imaging through the pelvis terminates just below level of the ischii and there is diminishing emphysema at the upper left hemiscrotum with the mid and lower segments of the scrotum not included in the exam. IMPRESSION: 1. Diminishing emphysema at the upper screw hemiscrotum deep subcutaneous soft tissues with a minimal amount identified at the right. The mid and lower scrotum has not been captured in this CT exam. Consider repeat pelvis CT without contrast including the scrotum as clinically warranted. 2. Interval gross segmental colitis affecting the left hemicolon without local abscess ascites or free intra peritoneal gas collection. Consider likely infectious process though other inflammatory or ischemic process is not completely excluded. Given rectal involvement, ischemic etiology not favored. 3. Other lesser findings as discussed above.
[2018-04-11] MEDS: Meropenem 1 GM in Sodium Chloride 0.9% 100 ML IVPB SCH (16:56)
--- NOTE | 2018-04-11 17:58 | RAD ---
Date of service: 04/11/2018 PROCEDURE: CHEST RADIOGRAPH, 1 VIEW HISTORY: pneumonia COMPARISON: April 10, 2018. FINDINGS: LUNGS: Worsening bilateral infiltrates/pulmonary edema. PLEURA: No pneumothorax or pleural fluid seen. CARDIOVASCULAR: No aortic atherosclerotic calcification present. Normal. OSSEOUS STRUCTURES: No significant abnormalities. VISUALIZED UPPER ABDOMEN: Markedly distended stomach. No visible free air. OTHER FINDINGS: None. IMPRESSION: Worsening pulmonary edema.
[2018-04-11 19:55] LABS: HEMOGLOBIN 11.5 g/dL (12.0-18.0); MEAN CELL VOLUME 114.7 fl (80.0-94.0); MEAN CORPUSCULAR HEMOGLOBIN 38.8 pg (27.0-31.0); MEAN CORPUSCULAR HGB CONC 33.8 g/dL (33.0-37.0); RBC 2.97 Mil/uL (4.40-5.90); RED CELL DISTRIBUTION WIDTH 20.6 % (11.5-14.5); WHITE BLOOD COUNT 7.5 K/uL (4.8-10.8)
[2018-04-11 20:18] LABS: BLOOD UREA NITROGEN 24 mg/dl (9-20); GFR NON-AFRICAN AMERICAN 57
[2018-04-11 22:27] LABS: ABG ALLEN TEST YES; ARTERIAL BLOOD GAS HCO3 14.1 mmol/L (21-28); ARTERIAL BLOOD GAS HEMOGLOBIN 12.9 g/dL (11.7-17.4); ARTERIAL BLOOD GAS O2 CAPACITY 17.5 mL/dL (16-24); ARTERIAL BLOOD GAS O2 CONTENT 12.5 ML/dL (15-23); ARTERIAL BLOOD GAS O2 SAT 71.5 % (95-98); ARTERIAL BLOOD GAS PCO2 38 mm/Hg (35-45); ARTERIAL BLOOD GAS PH 7.19 (7.35-7.45); ARTERIAL BLOOD GAS PO2 42 mm/Hg (80-100); ARTERIAL BLOOD GAS TCO2 15.7 mmol/L (22-28)
[2018-04-11] MEDS ORDERED: Albuterol-Ipratrop 3 mg / 0.5 (3 ml) UD ONE (22:50)
[2018-04-11] MEDS ORDERED: Albuterol-Ipratrop 3 mg / 0.5 (3 ml) UD INH STA (22:51)
--- NOTE | 2018-04-11 23:05 | CARD ---
APPROVED REPORT Date of service: 04/11/2018 EKG Measurement Heart [id number] <Conclusion> Sinus tachycardia Possible Left atrial enlargement Nonspecific ST abnormality Abnormal ECG
[2018-04-12 00:08] LABS: ABG ALLEN TEST YES; ARTERIAL BLOOD GAS HCO3 19.9 mmol/L (21-28); ARTERIAL BLOOD GAS O2 SAT 94.6 % (95-98); ARTERIAL BLOOD GAS PCO2 36 mm/Hg (35-45); ARTERIAL BLOOD GAS PH 7.33 (7.35-7.45); ARTERIAL BLOOD GAS PO2 66 mm/Hg (80-100); ARTERIAL BLOOD GAS TCO2 20.1 mmol/L (22-28)
[2018-04-12 00:20] LABS: BLOOD UREA NITROGEN 25 mg/dl (9-20); CALCIUM 6.5 mg/dL (8.4-10.2); GFR NON-AFRICAN AMERICAN 57
[2018-04-12] MEDS: Meropenem 1 GM in Sodium Chloride 0.9% 100 ML IVPB SCH ×3 (01:10→16:38)
--- NOTE | 2018-04-12 01:12 | PN ---
DATE: 04/11/2018 CRITICAL CARE PROGRESS NOTE LOCATION: The patient in ICU, bed 426. Time spent 50 minutes. The patient is seen and evaluated at the bedside. Past medical, surgical, family, social history reviewed. Discussed with the patient's son at bedside. SUBJECTIVE: A 57-year-old male, admitted with pain and swelling of scrotal area for two days prior to the admission with spreading to the perineal area. CT of the abdomen and pelvis and ultrasound consistent with epididymo-orchitis and cellulitis and gangrene. History of diabetes mellitus type 2, hepatitis C, cirrhosis with hepatosplenomegaly, history of nicotine, alcohol dependence, and recreational drug use. Status post incision and drainage, packing of the gangrene of the scrotum. Postop day 1. In telemetry, the patient was noted to become lethargic and very agitated with fever. Admitted to ICU for further evaluation and management. PAST MEDICAL HISTORY: As noted above. PAST SURGICAL HISTORY: Noted. ALLERGIES: NONE DOCUMENTED. CURRENT MEDICATIONS: Reviewed. PHYSICAL EXAMINATION: VITAL SIGNS: Temperature 102.2; heart rate 128 to 135, regular, tachycardic; blood pressure 125/58, mean arterial pressure 80, respiratory rate 20, oxygen saturation 100% on nonrebreather. Intake 3714, output of 950, positive balance 2764. Pierce urine 650 mL. Weight 205 pounds. HEAD, EYES, EARS, NOSE AND THROAT: Pupils reactive. Conjunctivae pink. Sclerae white. NECK: Supple. Trachea central. CHEST: Bilateral breath sounds. Clear to auscultation. HEART: Rhythm regular. S1 and S2 are rapid. No S3 or S4 gallop. No audible murmur. ABDOMEN: Bowel sounds are present. Pendulous. No distention. No tenderness. No palpable mass. GENITALIA: Scrotal area, status post incision and drainage and packing still with purulent drainage. EXTREMITIES: 1+ edema. DP palpable. Capillary refill less than 2 seconds. NEUROLOGIC: Alert, awake, agitated, requiring Precedex and one-to-one observation. CURRENT MEDICATIONS: Tylenol 650 mg every 6 hours p.r.n., Precedex drip as per protocol, Dilaudid 1 mg IV every 4 hours p.r.n. for pain, banana bag with vitamin C, thiamine, folic acid and multivitamin at 100 mL per hour, Zosyn 3.375 g IV every 6 hours, and vancomycin 1 g IV daily. LABORATORY DATA: WBC 9.4, hemoglobin 12.3, hematocrit 35.5, platelet count 61, neutrophils 85.2, lymphocytes 6, monocytes 5.8, eosinophils 2.9. PT 25.6, INR 2.3, PTT 44.6. ABG: The pH of 7.32, pCO2 of 47, pO2 of 42, oxygen saturation 78.2 on FiO2 of 31% with 3 L nasal flow, likely mixed all venous. SMA-7: Sodium 134, potassium 4.4, chloride 100, CO2 of 25, blood urea nitrogen 16, creatinine 0.9, random glucose 75, lactic acid 5.2, calcium 7.6, phosphorus 4.7, magnesium 1.7. Total bilirubin 7.4, AST 74, ALT 48, alkaline phosphatase 163, total protein 6, albumin 1.9. Urinalysis negative. Serology, infectious. Mononucleosis assay negative. Microbiology: Blood culture, no growth reported. Electrocardiogram shows sinus tachycardia, normal electrical axis, nonspecific ST-T changes. Chest x-ray on , no significant interval change compared to the prior examination. IMPRESSION AND PLAN: A 57-year-old male, morbidly obese with alcohol, nicotine and recreational drug dependence with diabetes mellitus type 2, admitted with Joel's gangrene, status post incision and drainage, on intravenous antibiotic. This morning became more agitated and restless, showed blood sugar 71 mg, treated with intravenous glucose. The patient's mental status improved and less agitation, likely ethyl alcohol related withdrawal, impending delirium tremens. We will continue with the intravenous antibiotics as per infectious disease consult. Appreciate surgery followup. Continue thiamine, folic acid, multivitamin with D5 half-normal in banana bag. Correct electrolyte abnormalities including magnesium and phosphorus. Continue Precedex. Use Ativan as needed for withdrawal seizure. Keep head of bed 30 degrees up. Wound care. Continue deep venous thrombosis and gastrointestinal prophylaxis. Thrombocytopenia secondary to chronic ethyl alcohol dependence. Remains stable.Follow up CT abdomen ,pelvis to assess joel's gangrene Jua nAntonio Hogan MD [facility] # [id number]
--- NOTE | 2018-04-12 04:09 | CP.CCUPN ---
CCU Subjective - Physician Review Subjective (Free Text): 57 y/o male admitted to ICU w/ AMS and agitation. Code blue called for resp arrest. CPR initiated. Patient intubated. 1 round of Epi given. Return of spontaneous circulation. Patient has 3 good access lines. 04/12/18 04:09 04/12/18 04:10 04/12/18 04:12 CCU Objective - Vital Signs / Intake & Output Vital Signs (Last 4 hours): Vital Signs Resp 04/12/18 00:14 22 Intake and Output (Last 8hrs): Intake & Output 04/11/18 04/11/18 04/12/18 14:59 22:59 06:59 Intake Total 750 1225 0 Output Total 450 Balance 750 775 0 Intake: IV 300 775 0 Intake, Piggyback 450 450 Output: Urine 450 Urethral (Pierce) 450 Other: # Bowel Movements 0 - Physical Exam Respiratory/Chest: Positive for: Other (coarse breath sounds on vent) Cardiovascular: Positive for: Tachycardic Psychiatric: Positive for: Other (Sedated). Negative for: Alert, Oriented x 3 - Medications Active Medications: Active Medications Generic Name Dose Route Start Last Admin Trade Name Freq PRN Reason Stop Dose Admin Acetaminophen 650 mg 04/11/18 09:44 Tylenol 325mg Tab PO Q6 PRN Fever >100.4 F Acetaminophen 650 mg 04/11/18 11:18 04/11/18 22:38 Tylenol 650 Mg Supp AR 650 mg Q6 PRN Administration Fever >100.4 F Hydromorphone HCl 1 mg 04/10/18 14:59 04/11/18 08:45 Dilaudid IVP 1 mg Q4 PRN Administration Pain, severe (8-10) Sodium Chloride 1,000 mls @ 999 mls/hr 04/11/18 08:15 04/11/18 08:51 Sodium Chloride 0.9% IV 04/12/18 08:14 999 mls/hr .Q1H1M PENNY Administration Sodium Chloride 1,000 mls @ 999 mls/hr 04/11/18 11:15 04/11/18 16:57 Sodium Chloride 0.9% IV 04/12/18 11:04 999 mls/hr .Q1H1M PENNY Administration Thiamine HCl 100 mg/ Sodium 101 mls @ 100 mls/hr 04/12/18 09:00 Chloride IV DAILY PENNY Dexmedetomidine HCl 400 mcg/ 100 mls @ 4.65 mls/hr 04/11/18 11:22 04/12/18 00:10 Sodium Chloride IV 04/12/18 08:52 0.2 mcg/kg/hr .[id number] ONE 4.65 mls/hr Titration Protocol 0.2 MCG/KG/HR Vancomycin HCl 1 gm/ Sodium 250 mls @ 166.667 mls/hr 04/11/18 15:00 04/11/18 21:45 Chloride IVPB 166.667 mls/hr Q12H PENNY Administration Protocol Meropenem 1 gm/ Sodium 100 mls @ 100 mls/hr 04/11/18 17:00 04/12/18 01:10 Chloride IVPB 100 mls/hr Q8 PENNY Administration Protocol Pantoprazole Sodium 40 mg 04/12/18 09:00 Protonix Inj IVP DAILY PENNY - Patient Studies Lab Studies: Microbiology Studies 04/10/18 11:00 Gram Stain - Final Other: Please Indicate 04/10/18 11:00 Gram Stain - Final Other: Please Indicate 04/10/18 05:45 Blood Culture - Preliminary Blood NO GROWTH AFTER 24 HOURS 04/10/18 05:21 Blood Culture - Preliminary Blood NO GROWTH AFTER 24 HOURS Lab Studies 04/11/18 04/11/18 04/11/18 Range/Units 23:55 23:51 22:24 WBC (4.8-10.8) K/uL RBC (4.40-5.90) Mil/uL Hgb (12.0-18.0) g/dL Hct (35.0-51.0) % MCV (80.0-94.0) fl MCH (27.0-31.0) pg MCHC (33.0-37.0) g/dL RDW (11.5-14.5) % Plt Count (130-400) K/uL MPV (7.2-11.7) fl Neut % (Auto) (50.0-75.0) % Lymph % (Auto) (20.0-40.0) % [place] % (Auto) (0.0-10.0) % Eos % (Auto) (0.0-4.0) % Baso % (Auto) (0.0-2.0) % Neut # (Auto) (1.8-7.0) K/uL Lymph # (Auto) (1.0-4.3) K/uL [place] # (Auto) (0.0-0.8) K/uL Eos # (Auto) (0.0-0.7) K/uL Baso # (Auto) (0.0-0.2) K/uL pCO2 36 38 (35-45) mm/Hg pO2 66 L 42 L* (80-100) mm/Hg HCO3 19.9 L 14.1 L (21-28) mmol/L ABG pH 7.33 L 7.19 L* (7.35-7.45) ABG Total CO2 20.1 L 15.7 L (22-28) mmol/L ABG O2 Saturation 94.6 L 71.5 L (95-98) % ABG O2 Content 12.5 L (15-23) ML/dL ABG Base Excess -6.2 L -12.9 L (-2.0-3.0) mmol/L ABG Hemoglobin 12.9 (11.7-17.4) g/dL ABG Carboxyhemoglobin 2.4 H (0.5-1.5) % POC ABG HHb (Measured) 27.4 H (0.0-5.0) % ABG Methemoglobin 1.4 (0.0-3.0) % ABG O2 Capacity 17.5 (16-24) mL/dL David Test Yes Yes ABG Potassium 4.6 (3.6-5.2) mmol/L A-a O2 Difference 602.0 267.0 mm/Hg Hgb O2 Saturation 68.8 L (95.0-98.0) % Glucose 148 H (75-110) mg/dL Lactate 8.5 H* (0.7-2.1) mmol/L Liter Flow 30 Vent Mode High flow lpm High flow lpm FiO2 100.0 50.0 % Crit Value Called To Dr ajay maguire md Crit Value Called By Mj [id number] Crit Value Read Back Y Y Blood Gas Notified Time 7 2226 Sodium 133.0 137 (132-148) mmol/l Potassium 4.3 (3.6-5.0) MMOL/L Chloride 103.0 106 (98-107) mmol/L Carbon Dioxide 16 L (22-30) mmol/L Anion Gap 19 (10-20) BUN 25 H (9-20) mg/dl Creatinine 1.3 (0.8-1.5) mg/dl Est GFR ( Amer) > 60 Est GFR (Non-Af Amer) 57 POC Glucose (mg/dL) (65-110) mg/dL Random Glucose 136 H (75-110) mg/dL Lactic Acid (0.7-2.1) MMOL/L Calcium 6.5 L (8.4-10.2) mg/dL Phosphorus (2.5-4.5) mg/dl Magnesium (1.6-2.3) MG/DL Total Bilirubin (0.2-1.3) mg/dl AST (17-59) U/L ALT (21-72) U/L Alkaline Phosphatase (38-126) U/L Total Protein (6.3-8.2) G/DL Albumin (3.5-5.0) g/dL Globulin (2.2-3.9) gm/dL Albumin/Globulin Ratio (1.0-2.1) Arterial Blood Potassium 4.6 (3.6-5.2) mmol/L Crossmatch 04/11/18 04/11/18 04/11/18 Range/Units 19:39 19:39 19:39 WBC 7.5 (4.8-10.8) K/uL RBC 2.97 L (4.40-5.90) Mil/uL Hgb 11.5 L (12.0-18.0) g/dL Hct 34.1 L (35.0-51.0) % MCV 114.7 H D (80.0-94.0) fl MCH 38.8 H (27.0-31.0) pg MCHC 33.8 (33.0-37.0) g/dL RDW 20.6 H (11.5-14.5) % Plt Count 52 L (130-400) K/uL MPV (7.2-11.7) fl Neut % (Auto) (50.0-75.0) % Lymph % (Auto) (20.0-40.0) % [place] % (Auto) (0.0-10.0) % Eos % (Auto) (0.0-4.0) % Baso % (Auto) (0.0-2.0) % Neut # (Auto) (1.8-7.0) K/uL Lymph # (Auto) (1.0-4.3) K/uL [place] # (Auto) (0.0-0.8) K/uL Eos # (Auto) (0.0-0.7) K/uL Baso # (Auto) (0.0-0.2) K/uL pCO2 (35-45) mm/Hg pO2 (80-100) mm/Hg HCO3 (21-28) mmol/L ABG pH (7.35-7.45) ABG Total CO2 (22-28) mmol/L ABG O2 Saturation (95-98) % ABG O2 Content (15-23) ML/dL ABG Base Excess (-2.0-3.0) mmol/L ABG Hemoglobin (11.7-17.4) g/dL ABG Carboxyhemoglobin (0.5-1.5) % POC ABG HHb (Measured) (0.0-5.0) % ABG Methemoglobin (0.0-3.0) % ABG O2 Capacity (16-24) mL/dL David Test ABG Potassium (3.6-5.2) mmol/L A-a O2 Difference mm/Hg Hgb O2 Saturation (95.0-98.0) % Glucose (75-110) mg/dL Lactate (0.7-2.1) mmol/L Liter Flow Vent Mode FiO2 % Crit Value Called To Crit Value Called By Crit Value Read Back Blood Gas Notified Time Sodium 134 (132-148) mmol/l Potassium 4.6 (3.6-5.0) MMOL/L Chloride 103 (98-107) mmol/L Carbon Dioxide 23 (22-30) mmol/L Anion Gap 13 (10-20) BUN 24 H (9-20) mg/dl Creatinine 1.3 (0.8-1.5) mg/dl Est GFR ( Amer) > 60 Est GFR (Non-Af Amer) 57 POC Glucose (mg/dL) (65-110) mg/dL Random Glucose 139 H (75-110) mg/dL Lactic Acid 2.8 H (0.7-2.1) MMOL/L Calcium 7.0 L (8.4-10.2) mg/dL Phosphorus (2.5-4.5) mg/dl Magnesium (1.6-2.3) MG/DL Total Bilirubin (0.2-1.3) mg/dl AST (17-59) U/L ALT (21-72) U/L Alkaline Phosphatase (38-126) U/L Total Protein (6.3-8.2) G/DL Albumin (3.5-5.0) g/dL Globulin (2.2-3.9) gm/dL Albumin/Globulin Ratio (1.0-2.1) Arterial Blood Potassium (3.6-5.2) mmol/L Crossmatch 04/11/18 04/11/18 04/11/18 Range/Units 10:46 10:13 09:11 WBC (4.8-10.8) K/uL RBC (4.40-5.90) Mil/uL Hgb (12.0-18.0) g/dL Hct (35.0-51.0) % MCV (80.0-94.0) fl MCH (27.0-31.0) pg MCHC (33.0-37.0) g/dL RDW (11.5-14.5) % Plt Count (130-400) K/uL MPV (7.2-11.7) fl Neut % (Auto) (50.0-75.0) % Lymph % (Auto) (20.0-40.0) % [place] % (Auto) (0.0-10.0) % Eos % (Auto) (0.0-4.0) % Baso % (Auto) (0.0-2.0) % Neut # (Auto) (1.8-7.0) K/uL Lymph # (Auto) (1.0-4.3) K/uL [place] # (Auto) (0.0-0.8) K/uL Eos # (Auto) (0.0-0.7) K/uL Baso # (Auto) (0.0-0.2) K/uL pCO2 47 H (35-45) mm/Hg pO2 42 L* (80-100) mm/Hg HCO3 22.7 (21-28) mmol/L ABG pH 7.32 L (7.35-7.45) ABG Total CO2 25.6 (22-28) mmol/L ABG O2 Saturation 78.2 L (95-98) % ABG O2 Content (15-23) ML/dL ABG Base Excess -2.2 L (-2.0-3.0) mmol/L ABG Hemoglobin (11.7-17.4) g/dL ABG Carboxyhemoglobin (0.5-1.5) % POC ABG HHb (Measured) (0.0-5.0) % ABG Methemoglobin (0.0-3.0) % ABG O2 Capacity (16-24) mL/dL David Test Yes ABG Potassium 4.5 (3.6-5.2) mmol/L A-a O2 Difference 120.0 mm/Hg Hgb O2 Saturation (95.0-98.0) % Glucose 93 (75-110) mg/dL Lactate 5.6 H* (0.7-2.1) mmol/L Liter Flow 3 Vent Mode FiO2 31.0 % Crit Value Called To Octavio robbins Crit Value Called By 15 Crit Value Read Back Y Blood Gas Notified Time 1013 Sodium 134.0 (132-148) mmol/l Potassium (3.6-5.0) MMOL/L Chloride 104.0 (98-107) mmol/L Carbon Dioxide (22-30) mmol/L Anion Gap (10-20) BUN (9-20) mg/dl Creatinine (0.8-1.5) mg/dl Est GFR ( Amer) Est GFR (Non-Af Amer) POC Glucose (mg/dL) 75 (65-110) mg/dL Random Glucose (75-110) mg/dL Lactic Acid 5.2 H* (0.7-2.1) MMOL/L Calcium (8.4-10.2) mg/dL Phosphorus (2.5-4.5) mg/dl Magnesium (1.6-2.3) MG/DL Total Bilirubin (0.2-1.3) mg/dl AST (17-59) U/L ALT (21-72) U/L Alkaline Phosphatase (38-126) U/L Total Protein (6.3-8.2) G/DL Albumin (3.5-5.0) g/dL Globulin (2.2-3.9) gm/dL Albumin/Globulin Ratio (1.0-2.1) Arterial Blood Potassium 4.5 (3.6-5.2) mmol/L Crossmatch 04/11/18 04/11/18 04/10/18 Range/Units 09:03 09:03 15:45 WBC 9.4 D (4.8-10.8) K/uL RBC 3.17 L (4.40-5.90) Mil/uL Hgb 12.3 (12.0-18.0) g/dL Hct 35.5 (35.0-51.0) % MCV 112.2 H D (80.0-94.0) fl MCH 38.7 H (27.0-31.0) pg MCHC 34.5 (33.0-37.0) g/dL RDW 20.5 H (11.5-14.5) % Plt Count 61 L (130-400) K/uL MPV 7.7 (7.2-11.7) fl Neut % (Auto) 85.2 H (50.0-75.0) % Lymph % (Auto) 6.0 L (20.0-40.0) % [place] % (Auto) 5.8 (0.0-10.0) % Eos % (Auto) 2.9 (0.0-4.0) % Baso % (Auto) 0.1 (0.0-2.0) % Neut # (Auto) 8.0 H (1.8-7.0) K/uL Lymph # (Auto) 0.6 L (1.0-4.3) K/uL [place] # (Auto) 0.5 (0.0-0.8) K/uL Eos # (Auto) 0.3 (0.0-0.7) K/uL Baso # (Auto) 0.0 (0.0-0.2) K/uL pCO2 (35-45) mm/Hg pO2 (80-100) mm/Hg HCO3 (21-28) mmol/L ABG pH (7.35-7.45) ABG Total CO2 (22-28) mmol/L ABG O2 Saturation (95-98) % ABG O2 Content (15-23) ML/dL ABG Base Excess (-2.0-3.0) mmol/L ABG Hemoglobin (11.7-17.4) g/dL ABG Carboxyhemoglobin (0.5-1.5) % POC ABG HHb (Measured) (0.0-5.0) % ABG Methemoglobin (0.0-3.0) % ABG O2 Capacity (16-24) mL/dL David Test ABG Potassium (3.6-5.2) mmol/L A-a O2 Difference mm/Hg Hgb O2 Saturation (95.0-98.0) % Glucose (75-110) mg/dL Lactate (0.7-2.1) mmol/L Liter Flow Vent Mode FiO2 % Crit Value Called To Crit Value Called By Crit Value Read Back Blood Gas Notified Time Sodium 134 (132-148) mmol/l Potassium 4.4 (3.6-5.0) MMOL/L Chloride 100 (98-107) mmol/L Carbon Dioxide 25 (22-30) mmol/L Anion Gap 13 (10-20) BUN 16 (9-20) mg/dl Creatinine 0.9 (0.8-1.5) mg/dl Est GFR ( Amer) > 60 Est GFR (Non-Af Amer) > 60 POC Glucose (mg/dL) (65-110) mg/dL Random Glucose 91 (75-110) mg/dL Lactic Acid (0.7-2.1) MMOL/L Calcium 7.6 L (8.4-10.2) mg/dL Phosphorus 4.7 H (2.5-4.5) mg/dl Magnesium 1.7 (1.6-2.3) MG/DL Total Bilirubin 7.4 H (0.2-1.3) mg/dl AST 74 H (17-59) U/L ALT 48 (21-72) U/L Alkaline Phosphatase 163 H D (38-126) U/L Total Protein 6.0 L (6.3-8.2) G/DL Albumin 1.9 L (3.5-5.0) g/dL Globulin 4.1 H (2.2-3.9) gm/dL Albumin/Globulin Ratio 0.5 L (1.0-2.1) Arterial Blood Potassium (3.6-5.2) mmol/L Crossmatch See Detail Laboratory Results - last 24 hr 04/10/18 04/11/18 04/11/18 15:45 09:03 09:03 WBC 9.4 D RBC 3.17 L Hgb 12.3 Hct 35.5 MCV 112.2 H D MCH 38.7 H MCHC 34.5 RDW 20.5 H Plt Count 61 L MPV 7.7 Neut % (Auto) 85.2 H Lymph % (Auto) 6.0 L [place] % (Auto) 5.8 Eos % (Auto) 2.9 Baso % (Auto) 0.1 Neut # (Auto) 8.0 H Lymph # (Auto) 0.6 L [place] # (Auto) 0.5 Eos # (Auto) 0.3 Baso # (Auto) 0.0 pCO2 pO2 HCO3 ABG pH ABG Total CO2 ABG O2 Saturation ABG O2 Content ABG Base Excess ABG Hemoglobin ABG Carboxyhemoglobin POC ABG HHb (Measured) ABG Methemoglobin ABG O2 Capacity David Test ABG Potassium A-a O2 Difference Hgb O2 Saturation Glucose Lactate Liter Flow Vent Mode FiO2 Crit Value Called To Crit Value Called By Crit Value Read Back Blood Gas Notified Time Sodium 134 Potassium 4.4 Chloride 100 Carbon Dioxide 25 Anion Gap 13 BUN 16 Creatinine 0.9 Est GFR ( Amer) > 60 Est GFR (Non-Af Amer) > 60 POC Glucose (mg/dL) Random Glucose 91 Lactic Acid Calcium 7.6 L Phosphorus 4.7 H Magnesium 1.7 Total Bilirubin 7.4 H AST 74 H ALT 48 Alkaline Phosphatase 163 H D Total Protein 6.0 L Albumin 1.9 L Globulin 4.1 H Albumin/Globulin Ratio 0.5 L Arterial Blood Potassium Crossmatch See Detail 04/11/18 04/11/18 04/11/18 09:11 10:13 10:46 WBC RBC Hgb Hct MCV MCH MCHC RDW Plt Count MPV Neut % (Auto) Lymph % (Auto) [place] % (Auto) Eos % (Auto) Baso % (Auto) Neut # (Auto) Lymph # (Auto) [place] # (Auto) Eos # (Auto) Baso # (Auto) pCO2 47 H pO2 42 L* HCO3 22.7 ABG pH 7.32 L ABG Total CO2 25.6 ABG O2 Saturation 78.2 L ABG O2 Content ABG Base Excess -2.2 L ABG Hemoglobin ABG Carboxyhemoglobin POC ABG HHb (Measured) ABG Methemoglobin ABG O2 Capacity David Test Yes ABG Potassium 4.5 A-a O2 Difference 120.0 Hgb O2 Saturation Glucose 93 Lactate 5.6 H* Liter Flow 3 Vent Mode FiO2 31.0 Crit Value Called To Octavio robbins Crit Value Called By 15 Crit Value Read Back Y Blood Gas Notified Time 1013 Sodium 134.0 Potassium Chloride 104.0 Carbon Dioxide Anion Gap BUN Creatinine Est GFR ( Amer) Est GFR (Non-Af Amer) POC Glucose (mg/dL) 75 Random Glucose Lactic Acid 5.2 H* Calcium Phosphorus Magnesium Total Bilirubin AST ALT Alkaline Phosphatase Total Protein Albumin Globulin Albumin/Globulin Ratio Arterial Blood Potassium 4.5 Crossmatch 04/11/18 04/11/18 04/11/18 19:39 19:39 19:39 WBC 7.5 RBC 2.97 L Hgb 11.5 L Hct 34.1 L MCV 114.7 H D MCH 38.8 H MCHC 33.8 RDW 20.6 H Plt Count 52 L MPV Neut % (Auto) Lymph % (Auto) [place] % (Auto) Eos % (Auto) Baso % (Auto) Neut # (Auto) Lymph # (Auto) [place] # (Auto) Eos # (Auto) Baso # (Auto) pCO2 pO2 HCO3 ABG pH ABG Total CO2 ABG O2 Saturation ABG O2 Content ABG Base Excess ABG Hemoglobin ABG Carboxyhemoglobin POC ABG HHb (Measured) ABG Methemoglobin ABG O2 Capacity David Test ABG Potassium A-a O2 Difference Hgb O2 Saturation Glucose Lactate Liter Flow Vent Mode FiO2 Crit Value Called To Crit Value Called By Crit Value Read Back Blood Gas Notified Time Sodium 134 Potassium 4.6 Chloride 103 Carbon Dioxide 23 Anion Gap 13 BUN 24 H Creatinine 1.3 Est GFR ( Amer) > 60 Est GFR (Non-Af Amer) 57 POC Glucose (mg/dL) Random Glucose 139 H Lactic Acid 2.8 H Calcium 7.0 L Phosphorus Magnesium Total Bilirubin AST ALT Alkaline Phosphatase Total Protein Albumin Globulin Albumin/Globulin Ratio Arterial Blood Potassium Crossmatch 04/11/18 04/11/18 04/11/18 22:24 23:51 23:55 WBC RBC Hgb Hct MCV MCH MCHC RDW Plt Count MPV Neut % (Auto) Lymph % (Auto) [place] % (Auto) Eos % (Auto) Baso % (Auto) Neut # (Auto) Lymph # (Auto) [place] # (Auto) Eos # (Auto) Baso # (Auto) pCO2 38 36 pO2 42 L* 66 L HCO3 14.1 L 19.9 L ABG pH 7.19 L* 7.33 L ABG Total CO2 15.7 L 20.1 L ABG O2 Saturation 71.5 L 94.6 L ABG O2 Content 12.5 L ABG Base Excess -12.9 L -6.2 L ABG Hemoglobin 12.9 ABG Carboxyhemoglobin 2.4 H POC ABG HHb (Measured) 27.4 H ABG Methemoglobin 1.4 ABG O2 Capacity 17.5 David Test Yes Yes ABG Potassium 4.6 A-a O2 Difference 267.0 602.0 Hgb O2 Saturation 68.8 L Glucose 148 H Lactate 8.5 H* Liter Flow 30 Vent Mode High flow lpm High flow lpm FiO2 50.0 100.0 Crit Value Called To Ajay villanueva Crit Value Called By [id number] Mj Crit Value Read Back Y Y Blood Gas Notified Time 2227 7 Sodium 137 133.0 Potassium 4.3 Chloride 106 103.0 Carbon Dioxide 16 L Anion Gap 19 BUN 25 H Creatinine 1.3 Est GFR ( Amer) > 60 Est GFR (Non-Af Amer) 57 POC Glucose (mg/dL) Random Glucose 136 H Lactic Acid Calcium 6.5 L Phosphorus Magnesium Total Bilirubin AST ALT Alkaline Phosphatase Total Protein Albumin Globulin Albumin/Globulin Ratio Arterial Blood Potassium 4.6 Crossmatch Radiology Impressions: Radiology Impressions Abdomen/Pelvis CT 04/11/18 11:39 IMPRESSION: 1. Diminishing emphysema at the upper screw hemiscrotum deep subcutaneous soft tissues with a minimal amount identified at the right. The mid and lower scrotum has not been captured in this CT exam. Consider repeat pelvis CT without contrast including the scrotum as clinically warranted. 2. Interval gross segmental colitis affecting the left hemicolon without local abscess ascites or free intra peritoneal gas collection. Consider likely infectious process though other inflammatory or ischemic process is not completely excluded. Given rectal involvement, ischemic etiology not favored. 3. Other lesser findings as discussed above. Chest X-Ray 04/11/18 15:53 IMPRESSION: Worsening pulmonary edema. Review of Systems - Review of Systems Systems not reviewed;Unavailable: Intubated Critical Care Progress Note - Nutrition Nutrition: Nutrition Category Date Time Status Altered GI/Hepatic Diet [DIET] Diets 04/11/18 Breakfast Active NPO Diet [DIET] Diets 04/12/18 Breakfast Ordered Assessment/Plan - Assessment and Plan (Free Text) Assessment: 57 y/o male admitted to ICU w/ AMS and agitation. Code blue called for resp arrest. 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
--- NOTE | 2018-04-12 05:01 | PCM.PROC ---
Procedures Attestation:: I certify that I have explained the specified Operation(s) or Procedure(s), risks, benefits and reasonable alternatives to the Patient and/or other person responsible. The opportunity was given to ask questions and all questions answered - Intubation Time Out Performed: No Sedative: None Laryngoscope: Ken ET Tube Size: 8.0 ET Tube Uncuffed: No ET Tube Secured Locarion: Teeth ET Tube Placement Confirmation: Visualized Passing Through Cords, Breath Sounds Equal Bilaterally, No Breath Sounds Over Epigastrum, Confirmation w/Capnometry Patient Tolerated Procedure: No Complications Additional comments: Patient intubated emergently in setting of code blue.
[2018-04-12 05:28] LABS: ABG ALLEN TEST YES; ARTERIAL BLOOD GAS HCO3 16.3 mmol/L (21-28); ARTERIAL BLOOD GAS O2 SAT 74.5 % (95-98); ARTERIAL BLOOD GAS PCO2 41 mm/Hg (35-45); ARTERIAL BLOOD GAS PH 7.23 (7.35-7.45); ARTERIAL BLOOD GAS PO2 41 mm/Hg (80-100); ARTERIAL BLOOD GAS TCO2 18.5 mmol/L (22-28)
[2018-04-12] MEDS ORDERED: Lactated Ringer's 1,000 ML IV SCH ×2 (05:30→08:45)
[2018-04-12] MEDS ORDERED: Sodium Chloride 0.9% 1,000 ML IV SCH (05:30)
[2018-04-12 05:44] LABS: HEMOGLOBIN 11.2 g/dL (12.0-18.0); MEAN CELL VOLUME 115.2 fl (80.0-94.0); MEAN CORPUSCULAR HEMOGLOBIN 38.8 pg (27.0-31.0); MEAN CORPUSCULAR HGB CONC 33.7 g/dL (33.0-37.0); RBC 2.89 Mil/uL (4.40-5.90); RED CELL DISTRIBUTION WIDTH 21.5 % (11.5-14.5); WHITE BLOOD COUNT 6.5 K/uL (4.8-10.8)
[2018-04-12 05:55] LABS: ALB/GLOB RATIO 0.5 (1.0-2.1); ALBUMIN 1.7 g/dL (3.5-5.0); CALCIUM 7.1 mg/dL (8.4-10.2)
[2018-04-12] MEDS ORDERED: Lactated Ringer's 500 ML IV SCH (06:45)
--- NOTE | 2018-04-12 07:54 | PCM.PROC ---
Procedures Attestation:: I certify that I have explained the specified Operation(s) or Procedure(s), risks, benefits and reasonable alternatives to the Patient and/or other person responsible. The opportunity was given to ask questions and all questions answered - Central Line Placement Right Internal Jugular Triple Lumen Catheter Aseptic technique was employed throughout the procedure: Full sterile barriers (mask, hair cover, sterile gown, sterile gloves), Full body sterile drape, Chlo raprep Antiseptic: 30 second prep for IJ or SC sites CVP Time Out Performed: Yes Pt. Placed on Pulse Ox Monitor: Yes Ultrasound Used for Placement: Yes Central Line Lumen Inserted: triple Central Line Length: 20 cm Post Procedure: Sutured in Place, Good Blood Return, All Ports Aspirated, Flushed, Capped, Sterile Dressing Applied Secured by: Suture Post procedure dressing: Chlorhexidine disc (Biopatch) Post Procedure X-Ray: Yes Patient Tolerated Procedure: Well Immediate Complications: None
--- NOTE | 2018-04-12 07:54 | RAD ---
Date of service: 04/12/2018 HISTORY: code ana COMPARISON: 04/11/2018 FINDINGS: LUNGS: Stable diffuse bilateral interstitial infiltrates. PLEURA: No significant pleural effusion identified, no pneumothorax apparent. CARDIOVASCULAR: No aortic atherosclerotic calcification present. Normal cardiac size. No pulmonary vascular congestion. OSSEOUS STRUCTURES: No significant abnormalities. VISUALIZED UPPER ABDOMEN: Normal. OTHER FINDINGS: ETT above the siva. IMPRESSION: ETT above the siva. Diffuse bilateral infiltrates, unchanged.
--- NOTE | 2018-04-12 08:48 | CP.PCM.PN ---
Subjective - Date & Time of Evaluation Date of Evaluation: 04/12/18 Time of Evaluation: 07:30 - Subjective Subjective: Patient seen and examined. Code blue called over night for resp distress. ROSC obtained. Patient currently intubated and on percedex. R IJ in placed. MAP in low 50's. ICU team to start pressors. Objective - Vital Signs/Intake and Output Vital Signs (last 24 hours): Temp Pulse Resp BP Pulse Ox 100.9 F H 81 22 72/37 L 100 04/11/18 20:00 04/12/18 07:00 04/12/18 07:00 04/12/18 07:00 04/12/18 07:00 Intake and Output: 04/12/18 04/12/18 06:59 18:59 Intake Total 850 Balance 850 - Medications Medications: Current Medications Acetaminophen (Tylenol 325mg Tab) 650 mg PO Q6 PRN PRN Reason: Fever >100.4 F Acetaminophen (Tylenol 650 Mg Supp) 650 mg VT Q6 PRN PRN Reason: Fever >100.4 F Last Admin: 04/11/18 22:38 Dose: 650 mg Hydromorphone HCl (Dilaudid) 1 mg IVP Q4 PRN PRN Reason: Pain, severe (8-10) Last Admin: 04/11/18 08:45 Dose: 1 mg Thiamine HCl 100 mg/ Sodium (Chloride) 101 mls @ 100 mls/hr IV DAILY PENNY Dexmedetomidine HCl 400 mcg/ (Sodium Chloride) 100 mls @ 4.65 mls/hr IV .[id number] ONE; Protocol Stop: 04/12/18 08:52 Last Titration: 04/12/18 03:30 Dose: 0.3 mcg/kg/hr, 6.97 mls/hr Vancomycin HCl 1 gm/ Sodium (Chloride) 250 mls @ 166.667 mls/hr IVPB Q12H PENNY; Protocol Last Admin: 04/12/18 06:06 Dose: Not Given Meropenem 1 gm/ Sodium (Chloride) 100 mls @ 100 mls/hr IVPB Q8 PENNY; Protocol Last Admin: 04/12/18 08:39 Dose: 100 mls/hr Norepinephrine Bitartrate 4 mg (/ Dextrose) 254 mls @ 9.53 mls/hr IV .Q24H PENNY; Protocol Last Admin: 04/12/18 08:33 Dose: 2.5 mcg/min, 9.53 mls/hr Lactated Ringer's (Lactated Ringer's) 1,000 mls @ 100 mls/hr IV .Q10H PENNY Pantoprazole Sodium (Protonix Inj) 40 mg IVP DAILY PENNY Last Admin: 04/12/18 08:39 Dose: 40 mg - Labs Labs: 04/12/18 04:30 04/12/18 04:30 PT 25.6 Seconds (9.8-13.1) H 04/10/18 05:21 INR 2.3 04/10/18 05:21 APTT 44.6 Seconds (25.6-37.1) H 04/10/18 05:21 - Constitutional Appears: Other (intubated) - Respiratory Exam Additional comments: intubated - Cardiovascular Exam Cardiovascular Exam: +S1, +S2 - GI/Abdominal Exam GI & Abdominal Exam: Soft. absent: Distended, Firm, Guarding, Rigid - Exam Exam: Scrotal Swelling (scrotum erythematous, warm. No purulent drainaged noted. No SubQ emphysema) - Neurological Exam Neurological Exam: absent: Alert, Awake - Skin Skin Exam: Erythema (scrotal), Warm Assessment and Plan - Assessment and Plan (Free Text) Assessment: 57M with perineal abscess s/p I&D Plan: -Scrotal edema and groin erythema much improved. No SubQ emphysema noted. -Worsening clinical condition likely related to pulm pathology -Should patient not improve clinically will consider CT scan Abd & Pelvis to r/o retroperitoneal involvement -Medical management per ICU team Will follow d/w Dr. Carmelo Dodd PGY3
--- NOTE | 2018-04-12 09:23 | CP.PCM.PN ---
Subjective - Date & Time of Evaluation Date of Evaluation: 04/12/18 Time of Evaluation: 09:19 - Subjective Subjective: Pt codeded last night.Scrotal incision healing no evidence or gangrene.or abcess formation. No rx at this time Objective - Vital Signs/Intake and Output Vital Signs (last 24 hours): Temp Pulse Resp BP Pulse Ox 99.8 F H 85 21 72/34 L 100 04/12/18 08:46 04/12/18 07:00 04/12/18 07:00 04/12/18 07:00 04/12/18 07:00 Intake and Output: 04/12/18 04/12/18 06:59 18:59 Intake Total 910 500 Output Total 400 Balance 510 500 - Medications Medications: Current Medications Acetaminophen (Tylenol 325mg Tab) 650 mg PO Q6 PRN PRN Reason: Fever >100.4 F Acetaminophen (Tylenol 650 Mg Supp) 650 mg OK Q6 PRN PRN Reason: Fever >100.4 F Last Admin: 04/11/18 22:38 Dose: 650 mg Hydromorphone HCl (Dilaudid) 1 mg IVP Q4 PRN PRN Reason: Pain, severe (8-10) Last Admin: 04/11/18 08:45 Dose: 1 mg Thiamine HCl 100 mg/ Sodium (Chloride) 101 mls @ 100 mls/hr IV DAILY PENNY Vancomycin HCl 1 gm/ Sodium (Chloride) 250 mls @ 166.667 mls/hr IVPB Q12H PENNY; Protocol Last Admin: 04/12/18 06:06 Dose: Not Given Meropenem 1 gm/ Sodium (Chloride) 100 mls @ 100 mls/hr IVPB Q8 PENNY; Protocol Last Admin: 04/12/18 08:39 Dose: 100 mls/hr Norepinephrine Bitartrate 4 mg (/ Dextrose) 254 mls @ 9.53 mls/hr IV .Q24H PENNY; Protocol Last Admin: 04/12/18 08:33 Dose: 2.5 mcg/min, 9.53 mls/hr Lactated Ringer's (Lactated Ringer's) 1,000 mls @ 100 mls/hr IV .Q10H PENNY Last Admin: 04/12/18 09:07 Dose: 100 mls/hr Pantoprazole Sodium (Protonix Inj) 40 mg IVP DAILY PENNY Last Admin: 04/12/18 08:39 Dose: 40 mg - Labs Labs: 04/12/18 04:30 04/12/18 04:30 PT 25.6 Seconds (9.8-13.1) H 04/10/18 05:21 INR 2.3 04/10/18 05:21 APTT 44.6 Seconds (25.6-37.1) H 04/10/18 05:21
[2018-04-12] MEDS: Thiamine 100 MG in Sodium Chloride 0.9% 100 ML IV SCH (09:42)
--- NOTE | 2018-04-12 10:43 | CP.CCUPN ---
CCU Subjective - Physician Review Events Since Last Encounter (Free Text): 04/12/18 10:39 As per report, pt became unresponsive and code blue was called this morning but but he responded with pulse immediately, intubated, was hypotensive afterward, TLC was inserted and pt was started on Levophed, BP is improving,ABG done was venous specimen, reordered. BP is improving on Levophed and IVF, Lactic acid is also high 10.0 CCU Objective - Vital Signs / Intake & Output Vital Signs (Last 4 hours): Vital Signs Temp Pulse Resp BP Pulse Ox 04/12/18 10:00 87 17 94/50 L 100 04/12/18 08:46 99.8 F H 04/12/18 07:00 85 21 72/34 L 100 Intake and Output (Last 8hrs): Intake & Output 04/11/18 04/12/18 04/12/18 22:59 06:59 14:59 Intake Total 1225 160 500 Output Total 450 400 Balance 775 -240 500 Weight 220 lb Intake: IV 775 0 500 Intake, Piggyback 450 160 Oral 0 Output: Urine 450 400 Urethral (Pierce) 450 400 Other: # Bowel Movements 0 - Physical Exam Narrative Physical Exam (Free Text): 04/12/18 10:43 P/E Neck: NoJVD Lungs: Bilateral basal crackles Abdomen: soft, BS + Ext: +1 edema Mild scrotal swelling Heart: No gallop Respiratory/Chest: Positive for: Other (coarse breath sounds on vent) Cardiovascular: Positive for: Tachycardic Psychiatric: Positive for: Other (Sedated). Negative for: Alert, Oriented x 3 - Medications Active Medications: Active Medications Generic Name Dose Route Start Last Admin Trade Name Freq PRN Reason Stop Dose Admin Acetaminophen 650 mg 04/11/18 09:44 Tylenol 325mg Tab PO Q6 PRN Fever >100.4 F Acetaminophen 650 mg 04/11/18 11:18 04/11/18 22:38 Tylenol 650 Mg Supp SD 650 mg Q6 PRN Administration Fever >100.4 F Hydromorphone HCl 1 mg 04/10/18 14:59 04/12/18 09:42 Dilaudid IVP 1 mg Q4 PRN Administration Pain, severe (8-10) Thiamine HCl 100 mg/ Sodium 101 mls @ 100 mls/hr 04/12/18 09:00 04/12/18 09:42 Chloride IV 100 mls/hr DAILY PENNY Administration Vancomycin HCl 1 gm/ Sodium 250 mls @ 166.667 mls/hr 04/11/18 15:00 04/12/18 06:06 Chloride IVPB Not Given Q12H PENNY Protocol Meropenem 1 gm/ Sodium 100 mls @ 100 mls/hr 04/11/18 17:00 04/12/18 08:39 Chloride IVPB 100 mls/hr Q8 PENNY Administration Protocol Norepinephrine Bitartrate 4 mg 254 mls @ 9.53 mls/hr 04/12/18 08:30 04/12/18 08:33 / Dextrose IV 2.5 mcg/min .Q24H PENNY 9.53 mls/hr Administration Protocol 2.5 MCG/MIN Lactated Ringer's 1,000 mls @ 100 mls/hr 04/12/18 08:45 04/12/18 09:07 Lactated Ringer's IV 100 mls/hr .Q10H PENNY Administration Pantoprazole Sodium 40 mg 04/12/18 09:00 04/12/18 08:39 Protonix Inj IVP 40 mg DAILY PENNY Administration - Patient Studies Lab Studies: Microbiology Studies 04/10/18 11:00 Gram Stain - Final Other: Please Indicate Wound Culture - Preliminary NO GROWTH AFTER 24 HOURS 04/10/18 11:00 Gram Stain - Final Other: Please Indicate Wound Culture - Preliminary NO GROWTH AFTER 24 HOURS 04/10/18 05:45 Blood Culture - Preliminary Blood NO GROWTH AFTER 48 HOURS 04/10/18 05:21 Blood Culture - Preliminary Blood NO GROWTH AFTER 48 HOURS Lab Studies 04/12/18 04/12/18 04/12/18 Range/Units 04:30 04:30 04:30 WBC 6.5 (4.8-10.8) K/uL RBC 2.89 L (4.40-5.90) Mil/uL Hgb 11.2 L (12.0-18.0) g/dL Hct 33.3 L (35.0-51.0) % MCV 115.2 H (80.0-94.0) fl MCH 38.8 H (27.0-31.0) pg MCHC 33.7 (33.0-37.0) g/dL RDW 21.5 H (11.5-14.5) % Plt Count 53 L (130-400) K/uL pCO2 (35-45) mm/Hg pO2 (80-100) mm/Hg HCO3 (21-28) mmol/L ABG pH (7.35-7.45) ABG Total CO2 (22-28) mmol/L ABG O2 Saturation (95-98) % ABG O2 Content (15-23) ML/dL ABG Base Excess (-2.0-3.0) mmol/L ABG Hemoglobin (11.7-17.4) g/dL ABG Carboxyhemoglobin (0.5-1.5) % POC ABG HHb (Measured) (0.0-5.0) % ABG Methemoglobin (0.0-3.0) % ABG O2 Capacity (16-24) mL/dL David Test ABG Potassium (3.6-5.2) mmol/L A-a O2 Difference mm/Hg Hgb O2 Saturation (95.0-98.0) % Glucose (75-110) mg/dL Lactate (0.7-2.1) mmol/L Liter Flow Vent Mode Mechanical Rate FiO2 % Tidal Volume PEEP Crit Value Called To Crit Value Called By Crit Value Read Back Blood Gas Notified Time Sodium 134 (132-148) mmol/l Potassium 4.9 (3.6-5.0) MMOL/L Chloride 101 (98-107) mmol/L Carbon Dioxide 17 L (22-30) mmol/L Anion Gap 21 H (10-20) BUN 29 H (9-20) mg/dl Creatinine 1.9 H (0.8-1.5) mg/dl Est GFR ( Amer) 44 Est GFR (Non-Af Amer) 37 POC Glucose (mg/dL) (65-110) mg/dL Random Glucose 110 (75-110) mg/dL Lactic Acid 10.8 H* (0.7-2.1) MMOL/L Calcium 7.1 L (8.4-10.2) mg/dL Total Bilirubin 6.3 H (0.2-1.3) mg/dl AST 142 H D (17-59) U/L ALT 49 (21-72) U/L Alkaline Phosphatase 160 H (38-126) U/L Total Protein 5.5 L (6.3-8.2) G/DL Albumin 1.7 L (3.5-5.0) g/dL Globulin 3.7 (2.2-3.9) gm/dL Albumin/Globulin Ratio 0.5 L (1.0-2.1) Arterial Blood Potassium (3.6-5.2) mmol/L 04/12/18 04/11/18 04/11/18 Range/Units 04:22 23:55 23:51 WBC (4.8-10.8) K/uL RBC (4.40-5.90) Mil/uL Hgb (12.0-18.0) g/dL Hct (35.0-51.0) % MCV (80.0-94.0) fl MCH (27.0-31.0) pg MCHC (33.0-37.0) g/dL RDW (11.5-14.5) % Plt Count (130-400) K/uL pCO2 41 36 (35-45) mm/Hg pO2 41 L* 66 L (80-100) mm/Hg HCO3 16.3 L 19.9 L (21-28) mmol/L ABG pH 7.23 L 7.33 L (7.35-7.45) ABG Total CO2 18.5 L 20.1 L (22-28) mmol/L ABG O2 Saturation 74.5 L 94.6 L (95-98) % ABG O2 Content (15-23) ML/dL ABG Base Excess -9.9 L -6.2 L (-2.0-3.0) mmol/L ABG Hemoglobin (11.7-17.4) g/dL ABG Carboxyhemoglobin (0.5-1.5) % POC ABG HHb (Measured) (0.0-5.0) % ABG Methemoglobin (0.0-3.0) % ABG O2 Capacity (16-24) mL/dL David Test Yes Yes ABG Potassium 5.0 4.6 (3.6-5.2) mmol/L A-a O2 Difference 621.0 602.0 mm/Hg Hgb O2 Saturation (95.0-98.0) % Glucose 116 H 148 H (75-110) mg/dL Lactate 11.7 H* 8.5 H* (0.7-2.1) mmol/L Liter Flow Vent Mode A/c High flow lpm Mechanical Rate 12 FiO2 100.0 100.0 % Tidal Volume 500 PEEP 5 Crit Value Called To Dr ajay villanueva Crit Value Called By Tulio Antunez Crit Value Read Back Y Y Blood Gas Notified Time 528 7 Sodium 134.0 133.0 137 (132-148) mmol/l Potassium 4.3 (3.6-5.0) MMOL/L Chloride 103.0 103.0 106 (98-107) mmol/L Carbon Dioxide 16 L (22-30) mmol/L Anion Gap 19 (10-20) BUN 25 H (9-20) mg/dl Creatinine 1.3 (0.8-1.5) mg/dl Est GFR ( Amer) > 60 Est GFR (Non-Af Amer) 57 POC Glucose (mg/dL) (65-110) mg/dL Random Glucose 136 H (75-110) mg/dL Lactic Acid (0.7-2.1) MMOL/L Calcium 6.5 L (8.4-10.2) mg/dL Total Bilirubin (0.2-1.3) mg/dl AST (17-59) U/L ALT (21-72) U/L Alkaline Phosphatase (38-126) U/L Total Protein (6.3-8.2) G/DL Albumin (3.5-5.0) g/dL Globulin (2.2-3.9) gm/dL Albumin/Globulin Ratio (1.0-2.1) Arterial Blood Potassium 5.0 4.6 (3.6-5.2) mmol/L 04/11/18 04/11/18 04/11/18 Range/Units 22:24 19:39 19:39 WBC (4.8-10.8) K/uL RBC (4.40-5.90) Mil/uL Hgb (12.0-18.0) g/dL Hct (35.0-51.0) % MCV (80.0-94.0) fl MCH (27.0-31.0) pg MCHC (33.0-37.0) g/dL RDW (11.5-14.5) % Plt Count (130-400) K/uL pCO2 38 (35-45) mm/Hg pO2 42 L* (80-100) mm/Hg HCO3 14.1 L (21-28) mmol/L ABG pH 7.19 L* (7.35-7.45) ABG Total CO2 15.7 L (22-28) mmol/L ABG O2 Saturation 71.5 L (95-98) % ABG O2 Content 12.5 L (15-23) ML/dL ABG Base Excess -12.9 L (-2.0-3.0) mmol/L ABG Hemoglobin 12.9 (11.7-17.4) g/dL ABG Carboxyhemoglobin 2.4 H (0.5-1.5) % POC ABG HHb (Measured) 27.4 H (0.0-5.0) % ABG Methemoglobin 1.4 (0.0-3.0) % ABG O2 Capacity 17.5 (16-24) mL/dL David Test Yes ABG Potassium (3.6-5.2) mmol/L A-a O2 Difference 267.0 mm/Hg Hgb O2 Saturation 68.8 L (95.0-98.0) % Glucose (75-110) mg/dL Lactate (0.7-2.1) mmol/L Liter Flow 30 Vent Mode High flow lpm Mechanical Rate FiO2 50.0 % Tidal Volume PEEP Crit Value Called To Ajay maguire md Crit Value Called By [id number] Crit Value Read Back Y Blood Gas Notified Time 2227 Sodium 134 (132-148) mmol/l Potassium 4.6 (3.6-5.0) MMOL/L Chloride 103 (98-107) mmol/L Carbon Dioxide 23 (22-30) mmol/L Anion Gap 13 (10-20) BUN 24 H (9-20) mg/dl Creatinine 1.3 (0.8-1.5) mg/dl Est GFR ( Amer) > 60 Est GFR (Non-Af Amer) 57 POC Glucose (mg/dL) (65-110) mg/dL Random Glucose 139 H (75-110) mg/dL Lactic Acid 2.8 H (0.7-2.1) MMOL/L Calcium 7.0 L (8.4-10.2) mg/dL Total Bilirubin (0.2-1.3) mg/dl AST (17-59) U/L ALT (21-72) U/L Alkaline Phosphatase (38-126) U/L Total Protein (6.3-8.2) G/DL Albumin (3.5-5.0) g/dL Globulin (2.2-3.9) gm/dL Albumin/Globulin Ratio (1.0-2.1) Arterial Blood Potassium (3.6-5.2) mmol/L 04/11/18 04/11/18 04/11/18 Range/Units 19:39 10:46 10:13 WBC 7.5 (4.8-10.8) K/uL RBC 2.97 L (4.40-5.90) Mil/uL Hgb 11.5 L (12.0-18.0) g/dL Hct 34.1 L (35.0-51.0) % MCV 114.7 H D (80.0-94.0) fl MCH 38.8 H (27.0-31.0) pg MCHC 33.8 (33.0-37.0) g/dL RDW 20.6 H (11.5-14.5) % Plt Count 52 L (130-400) K/uL pCO2 (35-45) mm/Hg pO2 (80-100) mm/Hg HCO3 (21-28) mmol/L ABG pH (7.35-7.45) ABG Total CO2 (22-28) mmol/L ABG O2 Saturation (95-98) % ABG O2 Content (15-23) ML/dL ABG Base Excess (-2.0-3.0) mmol/L ABG Hemoglobin (11.7-17.4) g/dL ABG Carboxyhemoglobin (0.5-1.5) % POC ABG HHb (Measured) (0.0-5.0) % ABG Methemoglobin (0.0-3.0) % ABG O2 Capacity (16-24) mL/dL David Test ABG Potassium (3.6-5.2) mmol/L A-a O2 Difference mm/Hg Hgb O2 Saturation (95.0-98.0) % Glucose (75-110) mg/dL Lactate (0.7-2.1) mmol/L Liter Flow Vent Mode Mechanical Rate FiO2 % Tidal Volume PEEP Crit Value Called To Crit Value Called By Crit Value Read Back Blood Gas Notified Time Sodium (132-148) mmol/l Potassium (3.6-5.0) MMOL/L Chloride (98-107) mmol/L Carbon Dioxide (22-30) mmol/L Anion Gap (10-20) BUN (9-20) mg/dl Creatinine (0.8-1.5) mg/dl Est GFR ( Amer) Est GFR (Non-Af Amer) POC Glucose (mg/dL) 75 (65-110) mg/dL Random Glucose (75-110) mg/dL Lactic Acid 5.2 H* (0.7-2.1) MMOL/L Calcium (8.4-10.2) mg/dL Total Bilirubin (0.2-1.3) mg/dl AST (17-59) U/L ALT (21-72) U/L Alkaline Phosphatase (38-126) U/L Total Protein (6.3-8.2) G/DL Albumin (3.5-5.0) g/dL Globulin (2.2-3.9) gm/dL Albumin/Globulin Ratio (1.0-2.1) Arterial Blood Potassium (3.6-5.2) mmol/L 04/11/18 Range/Units 09:03 WBC (4.8-10.8) K/uL RBC (4.40-5.90) Mil/uL Hgb (12.0-18.0) g/dL Hct (35.0-51.0) % MCV (80.0-94.0) fl MCH (27.0-31.0) pg MCHC (33.0-37.0) g/dL RDW (11.5-14.5) % Plt Count 61 L (130-400) K/uL pCO2 (35-45) mm/Hg pO2 (80-100) mm/Hg HCO3 (21-28) mmol/L ABG pH (7.35-7.45) ABG Total CO2 (22-28) mmol/L ABG O2 Saturation (95-98) % ABG O2 Content (15-23) ML/dL ABG Base Excess (-2.0-3.0) mmol/L ABG Hemoglobin (11.7-17.4) g/dL ABG Carboxyhemoglobin (0.5-1.5) % POC ABG HHb (Measured) (0.0-5.0) % ABG Methemoglobin (0.0-3.0) % ABG O2 Capacity (16-24) mL/dL David Test ABG Potassium (3.6-5.2) mmol/L A-a O2 Difference mm/Hg Hgb O2 Saturation (95.0-98.0) % Glucose (75-110) mg/dL Lactate (0.7-2.1) mmol/L Liter Flow Vent Mode Mechanical Rate FiO2 % Tidal Volume PEEP Crit Value Called To Crit Value Called By Crit Value Read Back Blood Gas Notified Time Sodium (132-148) mmol/l Potassium (3.6-5.0) MMOL/L Chloride (98-107) mmol/L Carbon Dioxide (22-30) mmol/L Anion Gap (10-20) BUN (9-20) mg/dl Creatinine (0.8-1.5) mg/dl Est GFR ( Amer) Est GFR (Non-Af Amer) POC Glucose (mg/dL) (65-110) mg/dL Random Glucose (75-110) mg/dL Lactic Acid (0.7-2.1) MMOL/L Calcium (8.4-10.2) mg/dL Total Bilirubin (0.2-1.3) mg/dl AST (17-59) U/L ALT (21-72) U/L Alkaline Phosphatase (38-126) U/L Total Protein (6.3-8.2) G/DL Albumin (3.5-5.0) g/dL Globulin (2.2-3.9) gm/dL Albumin/Globulin Ratio (1.0-2.1) Arterial Blood Potassium (3.6-5.2) mmol/L Laboratory Results - last 24 hr 04/11/18 04/11/18 04/11/18 09:03 10:13 10:46 WBC RBC Hgb Hct MCV MCH MCHC RDW Plt Count 61 L pCO2 pO2 HCO3 ABG pH ABG Total CO2 ABG O2 Saturation ABG O2 Content ABG Base Excess ABG Hemoglobin ABG Carboxyhemoglobin POC ABG HHb (Measured) ABG Methemoglobin ABG O2 Capacity David Test ABG Potassium A-a O2 Difference Hgb O2 Saturation Glucose Lactate Liter Flow Vent Mode Mechanical Rate FiO2 Tidal Volume PEEP Crit Value Called To Crit Value Called By Crit Value Read Back Blood Gas Notified Time Sodium Potassium Chloride Carbon Dioxide Anion Gap BUN Creatinine Est GFR ( Amer) Est GFR (Non-Af Amer) POC Glucose (mg/dL) 75 Random Glucose Lactic Acid 5.2 H* Calcium Total Bilirubin AST ALT Alkaline Phosphatase Total Protein Albumin Globulin Albumin/Globulin Ratio Arterial Blood Potassium 04/11/18 04/11/18 04/11/18 19:39 19:39 19:39 WBC 7.5 RBC 2.97 L Hgb 11.5 L Hct 34.1 L MCV 114.7 H D MCH 38.8 H MCHC 33.8 RDW 20.6 H Plt Count 52 L pCO2 pO2 HCO3 ABG pH ABG Total CO2 ABG O2 Saturation ABG O2 Content ABG Base Excess ABG Hemoglobin ABG Carboxyhemoglobin POC ABG HHb (Measured) ABG Methemoglobin ABG O2 Capacity David Test ABG Potassium A-a O2 Difference Hgb O2 Saturation Glucose Lactate Liter Flow Vent Mode Mechanical Rate FiO2 Tidal Volume PEEP Crit Value Called To Crit Value Called By Crit Value Read Back Blood Gas Notified Time Sodium 134 Potassium 4.6 Chloride 103 Carbon Dioxide 23 Anion Gap 13 BUN 24 H Creatinine 1.3 Est GFR ( Amer) > 60 Est GFR (Non-Af Amer) 57 POC Glucose (mg/dL) Random Glucose 139 H Lactic Acid 2.8 H Calcium 7.0 L Total Bilirubin AST ALT Alkaline Phosphatase Total Protein Albumin Globulin Albumin/Globulin Ratio Arterial Blood Potassium 04/11/18 04/11/18 04/11/18 22:24 23:51 23:55 WBC RBC Hgb Hct MCV MCH MCHC RDW Plt Count pCO2 38 36 pO2 42 L* 66 L HCO3 14.1 L 19.9 L ABG pH 7.19 L* 7.33 L ABG Total CO2 15.7 L 20.1 L ABG O2 Saturation 71.5 L 94.6 L ABG O2 Content 12.5 L ABG Base Excess -12.9 L -6.2 L ABG Hemoglobin 12.9 ABG Carboxyhemoglobin 2.4 H POC ABG HHb (Measured) 27.4 H ABG Methemoglobin 1.4 ABG O2 Capacity 17.5 David Test Yes Yes ABG Potassium 4.6 A-a O2 Difference 267.0 602.0 Hgb O2 Saturation 68.8 L Glucose 148 H Lactate 8.5 H* Liter Flow 30 Vent Mode High flow lpm High flow lpm Mechanical Rate FiO2 50.0 100.0 Tidal Volume PEEP Crit Value Called To Ajay villanueva Crit Value Called By [id number] Mj Crit Value Read Back Y Y Blood Gas Notified Time 2227 7 Sodium 137 133.0 Potassium 4.3 Chloride 106 103.0 Carbon Dioxide 16 L Anion Gap 19 BUN 25 H Creatinine 1.3 Est GFR ( Amer) > 60 Est GFR (Non-Af Amer) 57 POC Glucose (mg/dL) Random Glucose 136 H Lactic Acid Calcium 6.5 L Total Bilirubin AST ALT Alkaline Phosphatase Total Protein Albumin Globulin Albumin/Globulin Ratio Arterial Blood Potassium 4.6 04/12/18 04/12/18 04/12/18 04:22 04:30 04:30 WBC 6.5 RBC 2.89 L Hgb 11.2 L Hct 33.3 L MCV 115.2 H MCH 38.8 H MCHC 33.7 RDW 21.5 H Plt Count 53 L pCO2 41 pO2 41 L* HCO3 16.3 L ABG pH 7.23 L ABG Total CO2 18.5 L ABG O2 Saturation 74.5 L ABG O2 Content ABG Base Excess -9.9 L ABG Hemoglobin ABG Carboxyhemoglobin POC ABG HHb (Measured) ABG Methemoglobin ABG O2 Capacity David Test Yes ABG Potassium 5.0 A-a O2 Difference 621.0 Hgb O2 Saturation Glucose 116 H Lactate 11.7 H* Liter Flow Vent Mode A/c Mechanical Rate 12 FiO2 100.0 Tidal Volume 500 PEEP 5 Crit Value Called To Dr ajay villanueva Crit Value Called By Mj Crit Value Read Back Y Blood Gas Notified Time 528 Sodium 134.0 134 Potassium 4.9 Chloride 103.0 101 Carbon Dioxide 17 L Anion Gap 21 H BUN 29 H Creatinine 1.9 H Est GFR ( Amer) 44 Est GFR (Non-Af Amer) 37 POC Glucose (mg/dL) Random Glucose 110 Lactic Acid Calcium 7.1 L Total Bilirubin 6.3 H AST 142 H D ALT 49 Alkaline Phosphatase 160 H Total Protein 5.5 L Albumin 1.7 L Globulin 3.7 Albumin/Globulin Ratio 0.5 L Arterial Blood Potassium 5.0 04/12/18 04:30 WBC RBC Hgb Hct MCV MCH MCHC RDW Plt Count pCO2 pO2 HCO3 ABG pH ABG Total CO2 ABG O2 Saturation ABG O2 Content ABG Base Excess ABG Hemoglobin ABG Carboxyhemoglobin POC ABG HHb (Measured) ABG Methemoglobin ABG O2 Capacity David Test ABG Potassium A-a O2 Difference Hgb O2 Saturation Glucose Lactate Liter Flow Vent Mode Mechanical Rate FiO2 Tidal Volume PEEP Crit Value Called To Crit Value Called By Crit Value Read Back Blood Gas Notified Time Sodium Potassium Chloride Carbon Dioxide Anion Gap BUN Creatinine Est GFR ( Amer) Est GFR (Non-Af Amer) POC Glucose (mg/dL) Random Glucose Lactic Acid 10.8 H* Calcium Total Bilirubin AST ALT Alkaline Phosphatase Total Protein Albumin Globulin Albumin/Globulin Ratio Arterial Blood Potassium Radiology Impressions: Radiology Impressions Abdomen/Pelvis CT 04/11/18 11:39 IMPRESSION: 1. Diminishing emphysema at the upper screw hemiscrotum deep subcutaneous soft tissues with a minimal amount identified at the right. The mid and lower scrotum has not been captured in this CT exam. Consider repeat pelvis CT without contrast including the scrotum as clinically warranted. 2. Interval gross segmental colitis affecting the left hemicolon without local abscess ascites or free intra peritoneal gas collection. Consider likely infectious process though other inflammatory or ischemic process is not completely excluded. Given rectal involvement, ischemic etiology not favored. 3. Other lesser findings as discussed above. Chest X-Ray 04/11/18 15:53 IMPRESSION: Worsening pulmonary edema. Chest X-Ray 04/12/18 03:52 IMPRESSION: ETT above the siva. Diffuse bilateral infiltrates, unchanged. Critical Care Progress Note - Vent Settings MODE:: ASSIST CONTROL - Extremities/Vascular Does the Patient have a Central Venous Catheter?: Yes Insertion Site: Internal Jugular Vein Does the Patient need a Central Venous Catheter?: Yes Does the Patient have a Pierce Catheter?: Yes Does the Patient need a Pierce Catheter?: Yes - Prophylaxis GI Prophylaxis GI: PPI - Prophylaxis DVT Prophylaxis DVT: Lovenox - Nutrition Nutrition: Nutrition Category Date Time Status NPO Diet [DIET] Diets 04/12/18 Breakfast Active Assessment/Plan - Assessment and Plan (Free Text) Assessment: Sepsis Resp failure Scrotal abscess PNA Pulm edema Hypotension Plan: On vent, ABG reviewed, will continue Fio 1.0 for the time being , Meropenum and Vancomycin Once BP improved, will start Lasix WIll have cardiology evaluation and echo Will DC IVF
[2018-04-12 10:45] LABS: ABG ALLEN TEST YES; ARTERIAL BLOOD GAS HCO3 23.4 mmol/L (21-28); ARTERIAL BLOOD GAS HEMOGLOBIN 11.3 g/dL (11.7-17.4); ARTERIAL BLOOD GAS O2 CAPACITY 15.4 mL/dL (16-24); ARTERIAL BLOOD GAS O2 CONTENT 15.4 ML/dL (15-23); ARTERIAL BLOOD GAS O2 SAT 99.8 % (95-98); ARTERIAL BLOOD GAS PCO2 43 mm/Hg (35-45); ARTERIAL BLOOD GAS PH 7.35 (7.35-7.45); ARTERIAL BLOOD GAS PO2 98 mm/Hg (80-100)
[2018-04-12] MEDS ORDERED: Dexmedetomidine Hydrochloride 400 MCG in Sodium Chloride 0.9% 96 ML IV ONE (12:02)
--- NOTE | 2018-04-12 12:29 | CP.PCM.CON ---
History of Present Illness - History of Present Illness History of Present Illness: I was asked to evaluate patient by Dr Davidson. Patient seen 04/12/18 1210 Patient is a 57 year old male with HTN Hep C with cirrhosis who presents with gangrene of the scrotum. He underwent urological procedure. Nikhil Brito was called post op. he was intubated and transferred to ICU. The patient had pulmonary edema on the CXR. He is intubated and sedated. Review of Systems - Review of Systems Systems not reviewed;Unavailable: Intubated Past Patient History - Past Medical History & Family History Past Medical History?: Yes - Past Social History Smoking Status: Current Some Days Smoker - MUSCULOSKELETAL/RHEUMATOLOGICAL Hx Falls: No - PSYCHIATRIC Hx Substance Use: Yes (marijuana) - SURGICAL HISTORY Hx Surgeries: No - ANESTHESIA Hx Anesthesia: Yes Hx Anesthesia Reactions: No Meds Allergies/Adverse Reactions: Allergies Allergy/AdvReac Type Severity Reaction Status Date / Time paroxetine [From Paxil] Allergy Mild RASH Verified 04/10/18 04:33 quetiapine [From Seroquel] Allergy Mild RASH Verified 04/10/18 04:33 - Medications Medications: Current Medications Acetaminophen (Tylenol 325mg Tab) 650 mg PO Q6 PRN PRN Reason: Fever >100.4 F Acetaminophen (Tylenol 650 Mg Supp) 650 mg [place] Q6 PRN PRN Reason: Fever >100.4 F Last Admin: 04/11/18 22:38 Dose: 650 mg Furosemide (Lasix) 40 mg IVP BID [facility] Hydromorphone HCl (Dilaudid) 1 mg IVP Q4 PRN PRN Reason: Pain, severe (8-10) Last Admin: 04/12/18 09:42 Dose: 1 mg Thiamine HCl 100 mg/ Sodium (Chloride) 101 mls @ 100 mls/hr IV DAILY [facility] Last Admin: 04/12/18 09:42 Dose: 100 mls/hr Vancomycin HCl 1 gm/ Sodium (Chloride) 250 mls @ 166.667 mls/hr IVPB Q12H [facility]; Protocol Last Admin: 04/12/18 06:06 Dose: Not Given Meropenem 1 gm/ Sodium (Chloride) 100 mls @ 100 mls/hr IVPB Q8 [facility]; Protocol Last Admin: 04/12/18 08:39 Dose: 100 mls/hr Norepinephrine Bitartrate 4 mg (/ Dextrose) 254 mls @ 9.53 mls/hr IV .Q24H [facility]; Protocol Last Admin: 04/12/18 08:33 Dose: 2.5 mcg/min, 9.53 mls/hr Lactated Ringer's (Lactated Ringer's) 1,000 mls @ 100 mls/hr IV .Q10H [facility] Last Admin: 04/12/18 09:07 Dose: 100 mls/hr Dexmedetomidine HCl 400 mcg/ (Sodium Chloride) 100 mls @ 9.98 mls/hr IV .Q10H2M [facility]; Protocol Stop: 04/12/18 22:03 Pantoprazole Sodium (Protonix Inj) 40 mg IVP DAILY [facility] Last Admin: 04/12/18 08:39 Dose: 40 mg Physical Exam - Constitutional Appears: Toxic - Head Exam Head Exam: NORMAL INSPECTION - Eye Exam Eye Exam: Normal appearance - ENT Exam ENT Exam: Mucous Membranes Moist - Neck Exam Neck exam: Positive for: Full Rom, Normal Inspection. Negative for: Lymphadenopathy, Thyromegaly - Respiratory Exam Respiratory Exam: Decreased Breath Sounds - Cardiovascular Exam Cardiovascular Exam: REGULAR RHYTHM - GI/Abdominal Exam GI & Abdominal Exam: Normal Bowel Sounds - Rectal Exam Rectal Exam: Deferred - Extremities Exam Extremities exam: Negative for: pedal edema - Back Exam Back exam: NORMAL INSPECTION - Skin Skin Exam: Normal Color Results - Vital Signs Recent Vital Signs: Last Vital Signs Temp 99.8 F H 04/12/18 08:46 Pulse 87 04/12/18 10:00 Resp 17 04/12/18 10:00 BP 94/50 L 04/12/18 10:00 Pulse Ox 100 04/12/18 10:00 - Labs Result Diagrams: 04/12/18 04:30 04/12/18 04:30 Labs: Laboratory Results - last 24 hr 04/11/18 04/11/18 04/11/18 19:39 19:39 19:39 WBC 7.5 RBC 2.97 L Hgb 11.5 L Hct 34.1 L MCV 114.7 H D MCH 38.8 H MCHC 33.8 RDW 20.6 H Plt Count 52 L pCO2 pO2 HCO3 ABG pH ABG Total CO2 ABG O2 Saturation ABG O2 Content ABG Base Excess ABG Hemoglobin ABG Carboxyhemoglobin POC ABG HHb (Measured) ABG Methemoglobin ABG O2 Capacity David Test ABG Potassium A-a O2 Difference Hgb O2 Saturation Glucose Lactate Liter Flow Vent Mode Mechanical Rate FiO2 Tidal Volume PEEP Crit Value Called To Crit Value Called By Crit Value Read Back Blood Gas Notified Time Sodium 134 Potassium 4.6 Chloride 103 Carbon Dioxide 23 Anion Gap 13 BUN 24 H Creatinine 1.3 Est GFR ( Amer) > 60 Est GFR (Non-Af Amer) 57 Random Glucose 139 H Lactic Acid 2.8 H Calcium 7.0 L Total Bilirubin AST ALT Alkaline Phosphatase Total Protein Albumin Globulin Albumin/Globulin Ratio Arterial Blood Potassium 04/11/18 04/11/18 04/11/18 22:24 23:51 23:55 WBC RBC Hgb Hct MCV MCH MCHC RDW Plt Count pCO2 38 36 pO2 42 L* 66 L HCO3 14.1 L 19.9 L ABG pH 7.19 L* 7.33 L ABG Total CO2 15.7 L 20.1 L ABG O2 Saturation 71.5 L 94.6 L ABG O2 Content 12.5 L ABG Base Excess -12.9 L -6.2 L ABG Hemoglobin 12.9 ABG Carboxyhemoglobin 2.4 H POC ABG HHb (Measured) 27.4 H ABG Methemoglobin 1.4 ABG O2 Capacity 17.5 David Test Yes Yes ABG Potassium 4.6 A-a O2 Difference 267.0 602.0 Hgb O2 Saturation 68.8 L Glucose 148 H Lactate 8.5 H* Liter Flow 30 Vent Mode High flow lpm High flow lpm Mechanical Rate FiO2 50.0 100.0 Tidal Volume PEEP Crit Value Called To Ajay villanueva Crit Value Called By 6075 Mj Crit Value Read Back Y Y Blood Gas Notified Time 2227 7 Sodium 137 133.0 Potassium 4.3 Chloride 106 103.0 Carbon Dioxide 16 L Anion Gap 19 BUN 25 H Creatinine 1.3 Est GFR ( Amer) > 60 Est GFR (Non-Af Amer) 57 Random Glucose 136 H Lactic Acid Calcium 6.5 L Total Bilirubin AST ALT Alkaline Phosphatase Total Protein Albumin Globulin Albumin/Globulin Ratio Arterial Blood Potassium 4.6 04/12/18 04/12/18 04/12/18 04:22 04:30 04:30 WBC 6.5 RBC 2.89 L Hgb 11.2 L Hct 33.3 L MCV 115.2 H MCH 38.8 H MCHC 33.7 RDW 21.5 H Plt Count 53 L pCO2 41 pO2 41 L* HCO3 16.3 L ABG pH 7.23 L ABG Total CO2 18.5 L ABG O2 Saturation 74.5 L ABG O2 Content ABG Base Excess -9.9 L ABG Hemoglobin ABG Carboxyhemoglobin POC ABG HHb (Measured) ABG Methemoglobin ABG O2 Capacity David Test Yes ABG Potassium 5.0 A-a O2 Difference 621.0 Hgb O2 Saturation Glucose 116 H Lactate 11.7 H* Liter Flow Vent Mode A/c Mechanical Rate 12 FiO2 100.0 Tidal Volume 500 PEEP 5 Crit Value Called To Dr ajay villanueva Crit Value Called By Mj Crit Value Read Back Y Blood Gas Notified Time 528 Sodium 134.0 134 Potassium 4.9 Chloride 103.0 101 Carbon Dioxide 17 L Anion Gap 21 H BUN 29 H Creatinine 1.9 H Est GFR ( Amer) 44 Est GFR (Non-Af Amer) 37 Random Glucose 110 Lactic Acid Calcium 7.1 L Total Bilirubin 6.3 H AST 142 H D ALT 49 Alkaline Phosphatase 160 H Total Protein 5.5 L Albumin 1.7 L Globulin 3.7 Albumin/Globulin Ratio 0.5 L Arterial Blood Potassium 5.0 04/12/18 04/12/18 04:30 10:31 WBC RBC Hgb Hct MCV MCH MCHC RDW Plt Count pCO2 43 pO2 98 HCO3 23.4 ABG pH 7.35 ABG Total CO2 25.0 ABG O2 Saturation 99.8 H ABG O2 Content 15.4 ABG Base Excess -1.9 ABG Hemoglobin 11.3 L ABG Carboxyhemoglobin 2.1 H POC ABG HHb (Measured) 0.2 ABG Methemoglobin 1.2 ABG O2 Capacity 15.4 L David Test Yes ABG Potassium A-a O2 Difference 561.0 Hgb O2 Saturation 96.4 Glucose Lactate Liter Flow Vent Mode Mechanical Rate 12 FiO2 100.0 Tidal Volume 500 PEEP 5 Crit Value Called To Codey arguello rn Crit Value Called By 15 Crit Value Read Back Y Blood Gas Notified Time 1044 Sodium Potassium Chloride Carbon Dioxide Anion Gap BUN Creatinine Est GFR ( Amer) Est GFR (Non-Af Amer) Random Glucose Lactic Acid 10.8 H* Calcium Total Bilirubin AST ALT Alkaline Phosphatase Total Protein Albumin Globulin Albumin/Globulin Ratio Arterial Blood Potassium - EKG Data EKG Interpreted by: Myself Assessment & Plan (1) Cardiac arrest Assessment and Plan: unclear etiology. may be septic with elevated lactic acid. currently sinus rhythm. monitor for agitiation, DT. echocardiogram Status: Acute
--- NOTE | 2018-04-12 12:52 | RAD ---
Date of service: 04/12/2018 PROCEDURE: HISTORY: check IJ TLC position COMPARISON: 04/12/2018 TECHNIQUE: FINDINGS: New right CVP catheter tip overlying the SVC. Otherwise no significant interval change. No pneumothorax. IMPRESSION: As above.
[2018-04-12] MEDS: Midazolam 2 MG/2 ML VIAL IV PRN (20:34)
[2018-04-13] MEDS: Midazolam 2 MG/2 ML VIAL IV PRN ×4 (00:21→23:38)
[2018-04-13] MEDS: Dexmedetomidine Hydrochloride 400 MCG in Sodium Chloride 0.9% 96 ML IV ONE ×2 (00:23→06:39)
[2018-04-13] MEDS: Meropenem 1 GM in Sodium Chloride 0.9% 100 ML IVPB SCH ×2 (00:26→09:14)
[2018-04-13] MEDS ORDERED: DiphenhydrAMINE 50 mg/ml Inj IVP STA (05:16)
[2018-04-13 05:34] LABS: ABG ALLEN TEST YES; ARTERIAL BLOOD GAS HCO3 22.5 mmol/L (21-28); ARTERIAL BLOOD GAS O2 CAPACITY 17.5 mL/dL (16-24); ARTERIAL BLOOD GAS O2 CONTENT 12.2 ML/dL (15-23); ARTERIAL BLOOD GAS O2 SAT 69.6 % (95-98); ARTERIAL BLOOD GAS PCO2 54 mm/Hg (35-45); ARTERIAL BLOOD GAS PH 7.28 (7.35-7.45); ARTERIAL BLOOD GAS PO2 38 mm/Hg (80-100); ARTERIAL BLOOD GAS TCO2 27.1 mmol/L (22-28)
[2018-04-13 07:40] VITALS: O2SAT 100
[2018-04-13 08:35] LABS: ABG ALLEN TEST YES; ARTERIAL BLOOD GAS HCO3 25.3 mmol/L (21-28); ARTERIAL BLOOD GAS HEMOGLOBIN 12.1 g/dL (11.7-17.4); ARTERIAL BLOOD GAS O2 CAPACITY 16.4 mL/dL (16-24); ARTERIAL BLOOD GAS O2 CONTENT 15.7 ML/dL (15-23); ARTERIAL BLOOD GAS PCO2 40 mm/Hg (35-45); ARTERIAL BLOOD GAS PH 7.41 (7.35-7.45); ARTERIAL BLOOD GAS PO2 66 mm/Hg (80-100); ARTERIAL BLOOD GAS TCO2 26.6 mmol/L (22-28)
[2018-04-13 09:04] LABS: BASO % 0.2 % (0.0-2.0); EOS % 0.1 % (0.0-4.0); HEMOGLOBIN 12.3 g/dL (12.0-18.0); LYMPH # 0.5 K/uL (1.0-4.3); LYMPH % 3.7 % (20.0-40.0); MEAN CELL VOLUME 114.4 fl (80.0-94.0); MEAN CORPUSCULAR HEMOGLOBIN 38.5 pg (27.0-31.0); MEAN CORPUSCULAR HGB CONC 33.7 g/dL (33.0-37.0); MEAN PLATELET VOLUME 7.8 fl (7.2-11.7); MONO # 0.6 K/uL (0.0-0.8); MONO % 5.1 % (0.0-10.0); NEUT # 11.6 K/uL (1.8-7.0); NEUT % 90.9 % (50.0-75.0); NRBC % 0.2 % (0.0-0.0); PLATELET COUNT 45 K/uL (130-400); RBC 3.19 Mil/uL (4.40-5.90); RED CELL DISTRIBUTION WIDTH 20.4 % (11.5-14.5); WHITE BLOOD COUNT 12.8 K/uL (4.8-10.8)
[2018-04-13] MEDS: Thiamine 100 MG in Sodium Chloride 0.9% 100 ML IV SCH (09:15)
[2018-04-13 09:18] LABS: ALB/GLOB RATIO 0.4 (1.0-2.1); ALBUMIN 1.8 g/dL (3.5-5.0)
--- NOTE | 2018-04-13 09:51 | CP.PCM.PN ---
Subjective - Date & Time of Evaluation Date of Evaluation: 04/13/18 Time of Evaluation: 06:10 - Subjective Subjective: General Surgery Intubated. Pt fighting vent during the night. Now off pressors. Elevated WBC this AM. ABG (repeated) still with poor O2 levels. Objective - Vital Signs/Intake and Output Vital Signs (last 24 hours): Temp Pulse Resp BP Pulse Ox 98.6 F 83 29 H 115/59 L 100 04/13/18 08:00 04/13/18 08:00 04/13/18 08:00 04/13/18 09:12 04/13/18 08:00 Intake and Output: 04/13/18 04/13/18 06:59 18:59 Intake Total 980 4 Output Total 800 Balance 980 -796 - Medications Medications: Current Medications Acetaminophen (Tylenol 325mg Tab) 650 mg PO Q6 PRN PRN Reason: Fever >100.4 F Acetaminophen (Tylenol 650 Mg Supp) 650 mg [place] Q6 PRN PRN Reason: Fever >100.4 F Last Admin: 04/11/18 22:38 Dose: 650 mg Fentanyl (Fentanyl) 50 mcg IVP Q4H PRN PRN Reason: pain, agitation Last Admin: 04/13/18 04:28 Dose: 50 mcg Furosemide (Lasix) 80 mg IVP BID [facility] Hydromorphone HCl (Dilaudid) 1 mg IVP Q4 PRN PRN Reason: Pain, severe (8-10) Last Admin: 04/12/18 09:42 Dose: 1 mg Thiamine HCl 100 mg/ Sodium (Chloride) 101 mls @ 100 mls/hr IV DAILY [facility] Last Admin: 04/13/18 09:15 Dose: 100 mls/hr Vancomycin HCl 1 gm/ Sodium (Chloride) 250 mls @ 166.667 mls/hr IVPB Q12H [facility]; Protocol Last Admin: 04/13/18 04:30 Dose: 166.667 mls/hr Meropenem 1 gm/ Sodium (Chloride) 100 mls @ 100 mls/hr IVPB Q8 [facility]; Protocol Last Admin: 04/13/18 09:14 Dose: 100 mls/hr Midazolam HCl (Versed Inj) 2 mg IV Q4H PRN PRN Reason: agitation, anxiety Last Admin: 04/13/18 04:00 Dose: 2 mg Pantoprazole Sodium (Protonix Inj) 40 mg IVP DAILY [facility] Last Admin: 04/13/18 09:15 Dose: 40 mg - Labs Labs: 04/13/18 08:30 04/13/18 08:30 PT 25.6 Seconds (9.8-13.1) H 04/10/18 05:21 INR 2.3 04/10/18 05:21 APTT 44.6 Seconds (25.6-37.1) H 04/10/18 05:21 - Constitutional Appears: Other (intubated) - Head Exam Head Exam: ATRAUMATIC, NORMOCEPHALIC - Eye Exam Eye Exam: Scleral icterus. absent: Periorbital swelling - Respiratory Exam Additional comments: intubated on vent. 500/100%/12/5 - GI/Abdominal Exam GI & Abdominal Exam: Soft. absent: Distended, Firm, Guarding, Rigid - Exam Exam: Scrotal Swelling (scrotum erythematous, warm. No purulent drainaged noted. No SubQ emphysema. Decreases erythema) - Extremities Exam Extremities Exam: Pedal Edema - Skin Skin Exam: Dry, Warm Assessment and Plan - Assessment and Plan (Free Text) Assessment: 57M with perineal abscess s/p I&D POD #3 Plan: -Scrotal edema and groin erythema improved. -Clinical condition likely related to pulm pathology -Should patient decline clinically, consider CT Abd & Pelvis to r/o retroperitoneal involvement -Medical management per ICU team Will follow D/W Dr. Carmelo Carrillo PGY4
[2018-04-13] MEDS ORDERED: Dexmedetomidine Hydrochloride 400 MCG in Sodium Chloride 0.9% 96 ML IV ONE ×2 (10:26→21:36)
--- NOTE | 2018-04-13 11:13 | RAD ---
Date of service: 04/13/2018 HISTORY: intubated COMPARISON: 04/12/2017 FINDINGS: LUNGS: Diffuse bilateral pulmonary infiltrates. PLEURA: Left pleural effusion. CARDIOVASCULAR: Cardiomegaly. Normal cardiac size. No pulmonary vascular congestion. OSSEOUS STRUCTURES: No significant abnormalities. VISUALIZED UPPER ABDOMEN: Normal. OTHER FINDINGS: ETT above the siva. IMPRESSION: No significant change.
[2018-04-13 11:25] LABS: LYMPHOCYTE 3 % (20-50); MONOCYTE 4 % (0-10); NEUTROPHIL 93 % (42-75); PLATELET ESTIMATE NORMAL (NORMAL); TOTAL CELLS COUNTED 100
[2018-04-13 11:28] LABS: ANISOCYTOSIS MODERATE
[2018-04-13 11:29] LABS: OVALOCYTES SLIGHT; SCHISTOCYTES SLIGHT
--- NOTE | 2018-04-13 12:35 | CP.PCM.PN ---
Subjective - Date & Time of Evaluation Date of Evaluation: 04/13/18 Time of Evaluation: 12:20 - Subjective Subjective: patient remains intubated. Objective - Vital Signs/Intake and Output Vital Signs (last 24 hours): Temp Pulse Resp BP Pulse Ox 99.1 F 80 22 121/61 100 04/13/18 12:00 04/13/18 12:00 04/13/18 12:00 04/13/18 12:00 04/13/18 12:00 Intake and Output: 04/13/18 04/13/18 06:59 18:59 Intake Total 980 4 Output Total 800 Balance 980 -796 - Medications Medications: Current Medications Acetaminophen (Tylenol 325mg Tab) 650 mg PO Q6 PRN PRN Reason: Fever >100.4 F Acetaminophen (Tylenol 650 Mg Supp) 650 mg [place] Q6 PRN PRN Reason: Fever >100.4 F Last Admin: 04/11/18 22:38 Dose: 650 mg Fentanyl (Fentanyl) 50 mcg IVP Q4H PRN PRN Reason: pain, agitation Last Admin: 04/13/18 04:28 Dose: 50 mcg Furosemide (Lasix) 80 mg IVP BID [facility] Hydromorphone HCl (Dilaudid) 1 mg IVP Q4 PRN PRN Reason: Pain, severe (8-10) Last Admin: 04/12/18 09:42 Dose: 1 mg Thiamine HCl 100 mg/ Sodium (Chloride) 101 mls @ 100 mls/hr IV DAILY [facility] Last Admin: 04/13/18 09:15 Dose: 100 mls/hr Vancomycin HCl 1 gm/ Sodium (Chloride) 250 mls @ 166.667 mls/hr IVPB Q12H [facility]; Protocol Last Admin: 04/13/18 04:30 Dose: 166.667 mls/hr Meropenem 1 gm/ Sodium (Chloride) 100 mls @ 100 mls/hr IVPB Q8 [facility]; Protocol Last Admin: 04/13/18 09:14 Dose: 100 mls/hr Dexmedetomidine HCl 400 mcg/ (Sodium Chloride) 100 mls @ 27.44 mls/hr IV .Q3H39M [facility]; Protocol Stop: 04/13/18 14:04 Last Admin: 04/13/18 10:59 Dose: 1.1 mcg/kg/hr, 27.44 mls/hr Norepinephrine Bitartrate 8 mg (/ Dextrose) 258 mls @ 14.51 mls/hr IV .[id number] [facility]; Protocol Stop: 04/14/18 06:05 Midazolam HCl (Versed Inj) 2 mg IV Q4H PRN PRN Reason: agitation, anxiety Last Admin: 04/13/18 04:00 Dose: 2 mg Pantoprazole Sodium (Protonix Inj) 40 mg IVP DAILY [facility] Last Admin: 04/13/18 09:15 Dose: 40 mg - Labs Labs: 04/13/18 08:30 04/13/18 08:30 PT 25.6 Seconds (9.8-13.1) H 04/10/18 05:21 INR 2.3 04/10/18 05:21 APTT 44.6 Seconds (25.6-37.1) H 04/10/18 05:21 - Constitutional Appears: Chronically Ill - Head Exam Head Exam: NORMAL INSPECTION - Eye Exam Eye Exam: Normal appearance - ENT Exam ENT Exam: Mucous Membranes Moist - Neck Exam Neck Exam: Normal Inspection. absent: Lymphadenopathy - Respiratory Exam Respiratory Exam: Decreased Breath Sounds - Cardiovascular Exam Cardiovascular Exam: REGULAR RHYTHM - GI/Abdominal Exam GI & Abdominal Exam: Normal Bowel Sounds - Rectal Exam Rectal Exam: Deferred - Extremities Exam Extremities Exam: Normal Inspection - Back Exam Back Exam: NORMAL INSPECTION - Skin Skin Exam: Normal Color Assessment and Plan (1) Cardiac arrest Assessment & Plan: maintian pressor support. Status: Acute
[2018-04-13] MEDS ORDERED: Sodium Chloride 3% for Inhalation 4 ML VIAL.NEB IH PRN (12:41)
--- NOTE | 2018-04-13 12:41 | CP.PCM.PN ---
Subjective - Date & Time of Evaluation Date of Evaluation: 04/13/18 Time of Evaluation: 08:00 - Subjective Subjective: intubated in ICU NAD discussed with Lois Objective - Vital Signs/Intake and Output Vital Signs (last 24 hours): Temp Pulse Resp BP Pulse Ox 99.1 F 80 22 121/61 100 04/13/18 12:00 04/13/18 12:00 04/13/18 12:00 04/13/18 12:00 04/13/18 12:00 Intake and Output: 04/13/18 04/13/18 06:59 18:59 Intake Total 980 4 Output Total 800 Balance 980 -796 - Medications Medications: Current Medications Acetaminophen (Tylenol 325mg Tab) 650 mg PO Q6 PRN PRN Reason: Fever >100.4 F Acetaminophen (Tylenol 650 Mg Supp) 650 mg [place] Q6 PRN PRN Reason: Fever >100.4 F Last Admin: 04/11/18 22:38 Dose: 650 mg Fentanyl (Fentanyl) 50 mcg IVP Q4H PRN PRN Reason: pain, agitation Last Admin: 04/13/18 04:28 Dose: 50 mcg Furosemide (Lasix) 80 mg IVP BID [facility] Hydromorphone HCl (Dilaudid) 1 mg IVP Q4 PRN PRN Reason: Pain, severe (8-10) Last Admin: 04/12/18 09:42 Dose: 1 mg Thiamine HCl 100 mg/ Sodium (Chloride) 101 mls @ 100 mls/hr IV DAILY [facility] Last Admin: 04/13/18 09:15 Dose: 100 mls/hr Vancomycin HCl 1 gm/ Sodium (Chloride) 250 mls @ 166.667 mls/hr IVPB Q12H [facility]; Protocol Last Admin: 04/13/18 04:30 Dose: 166.667 mls/hr Meropenem 1 gm/ Sodium (Chloride) 100 mls @ 100 mls/hr IVPB Q8 [facility]; Protocol Last Admin: 04/13/18 09:14 Dose: 100 mls/hr Dexmedetomidine HCl 400 mcg/ (Sodium Chloride) 100 mls @ 27.44 mls/hr IV .Q3H39M [facility]; Protocol Stop: 04/13/18 14:04 Last Admin: 04/13/18 10:59 Dose: 1.1 mcg/kg/hr, 27.44 mls/hr Norepinephrine Bitartrate 8 mg (/ Dextrose) 258 mls @ 14.51 mls/hr IV .[id number] [facility]; Protocol Stop: 04/14/18 06:05 Midazolam HCl (Versed Inj) 2 mg IV Q4H PRN PRN Reason: agitation, anxiety Last Admin: 04/13/18 04:00 Dose: 2 mg Pantoprazole Sodium (Protonix Inj) 40 mg IVP DAILY [facility] Last Admin: 04/13/18 09:15 Dose: 40 mg - Labs Labs: 04/13/18 08:30 04/13/18 08:30 PT 25.6 Seconds (9.8-13.1) H 04/10/18 05:21 INR 2.3 04/10/18 05:21 APTT 44.6 Seconds (25.6-37.1) H 04/10/18 05:21 - Constitutional Appears: Non-toxic, Chronically Ill - Head Exam Head Exam: NORMOCEPHALIC - Eye Exam Eye Exam: absent: Scleral icterus - ENT Exam ENT Exam: Mucous Membranes Dry - Neck Exam Neck Exam: absent: Lymphadenopathy - Respiratory Exam Respiratory Exam: Decreased Breath Sounds - Cardiovascular Exam Cardiovascular Exam: REGULAR RHYTHM - GI/Abdominal Exam GI & Abdominal Exam: Distended, Soft. absent: Tenderness - Rectal Exam Rectal Exam: Deferred - Exam Exam: Scrotal Swelling, Testicular Tenderness. absent: NORMAL INSPECTION - Extremities Exam Extremities Exam: absent: Pedal Edema - Back Exam Back Exam: absent: CVA tenderness (L), CVA tenderness (R) - Neurological Exam Neurological Exam: Alert, Altered, Awake, CN II-XII Intact - Psychiatric Exam Psychiatric exam: Normal Mood - Skin Skin Exam: Dry Assessment and Plan (1) Sepsis Status: Acute (2) Sahil gangrene Status: Acute (3) Liver cirrhosis Status: Acute (4) Thrombocytopenia Status: Acute (5) Respiratory failure Status: Acute (6) CHF (congestive heart failure) Status: Acute - Assessment and Plan (Free Text) Assessment: 57 yo male with hx of ETOH and cirrrhosis as well as Diabetes admitted for infected scrotum with abscess which was drained developed resp failure and now intubated in ICU prognosis guarded all cultures so far neg IV antibiotics renewed DR Philippe following urologically
--- NOTE | 2018-04-13 14:44 | CT ---
Date of service: 04/13/2018 PROCEDURE: CT HEAD WITHOUT CONTRAST. HISTORY: unresponsive, s/p card arrest COMPARISON: None available. TECHNIQUE: Axial computed tomography images were obtained through the head/brain without intravenous contrast. Radiation dose: Total exam DLP = 978.21 mGy-cm. This CT exam was performed using one or more of the following dose reduction techniques: Automated exposure control, adjustment of the mA and/or kV according to patient size, and/or use of iterative reconstruction technique. FINDINGS: HEMORRHAGE: No intracranial hemorrhage. BRAIN: No mass effect or edema. No atrophy or chronic microvascular ischemic changes. VENTRICLES: Unremarkable. No hydrocephalus. CALVARIUM: Unremarkable. PARANASAL SINUSES: Unremarkable as visualized. No significant inflammatory changes. MASTOID AIR CELLS: Unremarkable as visualized. No inflammatory changes. OTHER FINDINGS: None. IMPRESSION: Normal CT of the Head.
[2018-04-13] MEDS: Meropenem 500 MG in Sodium Chloride 0.9% 100 ML IVPB SCH (17:52)
[2018-04-13 20:49] LABS: ALB/GLOB RATIO 0.4 (1.0-2.1); ALBUMIN 1.7 g/dL (3.5-5.0); CALCIUM 6.9 mg/dL (8.4-10.2)
[2018-04-14] MEDS: Midazolam 2 MG/2 ML VIAL IV PRN ×6 (01:05→17:46)
[2018-04-14] MEDS: Meropenem 500 MG in Sodium Chloride 0.9% 100 ML IVPB SCH ×2 (01:14→09:34)
[2018-04-14] MEDS ORDERED: Dexmedetomidine Hydrochloride 400 MCG in Sodium Chloride 0.9% 96 ML IV ONE ×3 (02:49→10:40)
[2018-04-14 05:17] LABS: ABG ALLEN TEST YES; ARTERIAL BLOOD GAS HCO3 27.1 mmol/L (21-28); ARTERIAL BLOOD GAS HEMOGLOBIN 12.2 g/dL (11.7-17.4); ARTERIAL BLOOD GAS O2 CAPACITY 16.5 mL/dL (16-24); ARTERIAL BLOOD GAS O2 CONTENT 15.9 ML/dL (15-23); ARTERIAL BLOOD GAS O2 SAT 96.3 % (95-98); ARTERIAL BLOOD GAS PCO2 39 mm/Hg (35-45); ARTERIAL BLOOD GAS PH 7.45 (7.35-7.45); ARTERIAL BLOOD GAS PO2 67 mm/Hg (80-100); ARTERIAL BLOOD GAS TCO2 28.3 mmol/L (22-28)
[2018-04-14 05:31] LABS: HEMOGLOBIN 11.4 g/dL (12.0-18.0); MEAN CELL VOLUME 111.7 fl (80.0-94.0); MEAN CORPUSCULAR HEMOGLOBIN 39.1 pg (27.0-31.0); RBC 2.91 Mil/uL (4.40-5.90); RED CELL DISTRIBUTION WIDTH 20.4 % (11.5-14.5); WHITE BLOOD COUNT 10.6 K/uL (4.8-10.8)
[2018-04-14 05:43] LABS: ALB/GLOB RATIO 0.4 (1.0-2.1); ALBUMIN 1.6 g/dL (3.5-5.0); CALCIUM 6.9 mg/dL (8.4-10.2)
--- NOTE | 2018-04-14 07:41 | CP.PCM.PN ---
Subjective - Date & Time of Evaluation Date of Evaluation: 04/14/18 Time of Evaluation: 07:36 - Subjective Subjective: SURGERY NOTE FOR DR. ROQUE 57M seen and examined at bedside. Patient currently intubated and sedated in the ICU. Placed on levophed over the weekend. Patient groin region of concern is improving. Less erythema, less drainage. Objective - Vital Signs/Intake and Output Vital Signs (last 24 hours): Temp Pulse Resp BP Pulse Ox 99.9 F H 75 28 H 114/58 L 100 04/13/18 20:00 04/13/18 22:00 04/13/18 22:00 04/13/18 22:00 04/13/18 22:00 Intake and Output: 04/14/18 04/14/18 06:59 18:59 Intake Total 540 Balance 540 - Medications Medications: Current Medications Acetaminophen (Tylenol 325mg Tab) 650 mg PO Q6 PRN PRN Reason: Fever >100.4 F Acetaminophen (Tylenol 650 Mg Supp) 650 mg [place] Q6 PRN PRN Reason: Fever >100.4 F Last Admin: 04/14/18 03:09 Dose: 650 mg Fentanyl (Fentanyl) 50 mcg IVP Q4H PRN PRN Reason: pain, agitation Last Admin: 04/14/18 00:30 Dose: 50 mcg Furosemide (Lasix) 80 mg IVP BID [facility] Last Admin: 04/13/18 17:02 Dose: 80 mg Thiamine HCl 100 mg/ Sodium (Chloride) 101 mls @ 100 mls/hr IV DAILY [facility] Last Admin: 04/13/18 09:15 Dose: 100 mls/hr Meropenem 500 mg/ Sodium (Chloride) 100 mls @ 100 mls/hr IVPB Q8 [facility]; Protocol Last Admin: 04/14/18 01:14 Dose: 100 mls/hr Dexmedetomidine HCl 400 mcg/ (Sodium Chloride) 100 mls @ 27.44 mls/hr IV .Q3H39M [facility]; Protocol Stop: 04/14/18 10:19 Last Admin: 04/14/18 07:30 Dose: 1.1 mcg/kg/hr, 27.44 mls/hr Norepinephrine Bitartrate 8 mg (/ Dextrose) 258 mls @ 9.68 mls/hr IV .Q24H [facility] Stop: 04/15/18 06:44 Midazolam HCl (Versed Inj) 2 mg IV Q2H PRN PRN Reason: agitation, anxiety Last Admin: 04/14/18 04:22 Dose: 2 mg Pantoprazole Sodium (Protonix Inj) 40 mg IVP DAILY [facility] Last Admin: 04/13/18 09:15 Dose: 40 mg - Labs Labs: 04/14/18 04:45 04/14/18 04:45 PT 25.6 Seconds (9.8-13.1) H 04/10/18 05:21 INR 2.3 04/10/18 05:21 APTT 44.6 Seconds (25.6-37.1) H 04/10/18 05:21 - Constitutional Appears: Other (intubated, sedated) - Respiratory Exam Respiratory Exam: NORMAL BREATHING PATTERN Additional comments: intubated - Cardiovascular Exam Cardiovascular Exam: REGULAR RHYTHM, +S1, +S2 - GI/Abdominal Exam GI & Abdominal Exam: Soft. absent: Distended, Firm, Guarding, Rigid, Tenderness, Rebound - Exam Additional comments: scrotal sutures in tact, adama in place, less drainage from site, less erythema - Extremities Exam Extremities Exam: absent: Pedal Edema, Tenderness - Neurological Exam Neurological Exam: Alert, Awake - Skin Skin Exam: Dry, Intact, Normal Color, Warm Assessment and Plan - Assessment and Plan (Free Text) Assessment: 57M with scrotal Perineal abscess s/p scrotal exploration and Perineal drainage POD#4 Plan: - ICU management - wena levophed - wean vent setting - monitor scrotal/perineal region - Hx of alcohol abuse- manege withdrawal Further recs discuss with Dr. Carmelo Lomas, PGY3
--- NOTE | 2018-04-14 09:08 | RAD ---
Date of service: 04/14/2018 HISTORY: intubated COMPARISON: 04/13/2018. FINDINGS: The endotracheal tube terminates in the mid trachea. The nasogastric tube terminates in the stomach. The right IJV line terminates at the cavoatrial junction. LUNGS: There is redemonstration of severe pulmonary venous congestion. There is diffuse haziness in the perihilar regions. PLEURA: Redemonstration of layering effusions. CARDIOVASCULAR: Persistent cardiomegaly. No aortic atherosclerotic calcification present. OSSEOUS STRUCTURES: Within normal limits for the patient's age. VISUALIZED UPPER ABDOMEN: Normal. OTHER FINDINGS: None. IMPRESSION: Findings are most compatible with pulmonary edema, pleural effusions and cardiomegaly. No focal consolidation. Stable position of support line and tubes.
[2018-04-14] MEDS: Thiamine 100 MG in Sodium Chloride 0.9% 100 ML IV SCH (09:34)
--- NOTE | 2018-04-14 11:12 | CP.PCM.PN ---
Subjective - Date & Time of Evaluation Date of Evaluation: 04/14/18 Time of Evaluation: 11:09 - Subjective Subjective: Pts scrotal incision healing,no evidence of gangrene or re acumulation of fluid or pus. Pt remains intubated. Plan no further gu intervention needed at this time. Denae Objective - Vital Signs/Intake and Output Vital Signs (last 24 hours): Temp Pulse Resp BP Pulse Ox 96.2 F L 73 29 H 105/53 L 100 04/14/18 08:00 04/14/18 10:00 04/14/18 10:00 04/14/18 10:00 04/14/18 10:00 Intake and Output: 04/14/18 04/14/18 06:59 18:59 Intake Total 748 200 Output Total 1250 200 Balance -502 0 - Medications Medications: Current Medications Acetaminophen (Tylenol 325mg Tab) 650 mg PO Q6 PRN PRN Reason: Fever >100.4 F Acetaminophen (Tylenol 650 Mg Supp) 650 mg [place] Q6 PRN PRN Reason: Fever >100.4 F Last Admin: 04/14/18 03:09 Dose: 650 mg Fentanyl (Fentanyl) 50 mcg IVP Q4H PRN PRN Reason: pain, agitation Last Admin: 04/14/18 00:30 Dose: 50 mcg Furosemide (Lasix) 80 mg IVP BID [facility] Last Admin: 04/13/18 17:02 Dose: 80 mg Thiamine HCl 100 mg/ Sodium (Chloride) 101 mls @ 100 mls/hr IV DAILY [facility] Last Admin: 04/14/18 09:34 Dose: 100 mls/hr Meropenem 500 mg/ Sodium (Chloride) 100 mls @ 100 mls/hr IVPB Q8 [facility]; Protocol Last Admin: 04/14/18 09:34 Dose: 100 mls/hr Norepinephrine Bitartrate 8 mg (/ Dextrose) 258 mls @ 9.68 mls/hr IV .Q24H [facility] Stop: 04/15/18 06:44 Dexmedetomidine HCl 400 mcg/ (Sodium Chloride) 100 mls @ 32.45 mls/hr IV .Q3H5M [facility]; Protocol Stop: 04/14/18 13:44 Midazolam HCl (Versed Inj) 2 mg IV Q2H PRN PRN Reason: agitation, anxiety Last Admin: 04/14/18 11:01 Dose: 2 mg Pantoprazole Sodium (Protonix Inj) 40 mg IVP DAILY PENNY Last Admin: 04/14/18 09:34 Dose: 40 mg - Labs Labs: 04/14/18 04:45 04/14/18 04:45 PT 25.6 Seconds (9.8-13.1) H 04/10/18 05:21 INR 2.3 04/10/18 05:21 APTT 44.6 Seconds (25.6-37.1) H 04/10/18 05:21
--- NOTE | 2018-04-14 11:32 | CP.PCM.PN ---
Subjective - Date & Time of Evaluation Date of Evaluation: 04/14/18 Time of Evaluation: 08:00 - Subjective Subjective: Intubated seen by surgery and may have ARDS NO NEW CULTURES STAT VANCO GIVEN mERREM TO CONT IV Objective - Vital Signs/Intake and Output Vital Signs (last 24 hours): Temp Pulse Resp BP Pulse Ox 96.2 F L 73 29 H 105/53 L 100 04/14/18 08:00 04/14/18 10:00 04/14/18 10:00 04/14/18 10:00 04/14/18 10:00 Intake and Output: 04/14/18 04/14/18 06:59 18:59 Intake Total 748 200 Output Total 1250 200 Balance -502 0 - Medications Medications: Current Medications Acetaminophen (Tylenol 325mg Tab) 650 mg PO Q6 PRN PRN Reason: Fever >100.4 F Acetaminophen (Tylenol 650 Mg Supp) 650 mg [place] Q6 PRN PRN Reason: Fever >100.4 F Last Admin: 04/14/18 03:09 Dose: 650 mg Fentanyl (Fentanyl) 50 mcg IVP Q4H PRN PRN Reason: pain, agitation Last Admin: 04/14/18 00:30 Dose: 50 mcg Furosemide (Lasix) 80 mg IVP BID PENNY Last Admin: 04/13/18 17:02 Dose: 80 mg Thiamine HCl 100 mg/ Sodium (Chloride) 101 mls @ 100 mls/hr IV DAILY PENNY Last Admin: 04/14/18 09:34 Dose: 100 mls/hr Meropenem 500 mg/ Sodium (Chloride) 100 mls @ 100 mls/hr IVPB Q8 PENNY; Protocol Last Admin: 04/14/18 09:34 Dose: 100 mls/hr Norepinephrine Bitartrate 8 mg (/ Dextrose) 258 mls @ 9.68 mls/hr IV .Q24H ONE Stop: 04/15/18 06:44 Dexmedetomidine HCl 400 mcg/ (Sodium Chloride) 100 mls @ 32.45 mls/hr IV .Q3H5M ONE; Protocol Stop: 04/14/18 13:44 Vancomycin HCl 1,000 mg/ (Sodium Chloride) 250 mls @ 250 mls/hr IVPB ONCE ONE; Protocol Stop: 04/14/18 12:28 Midazolam HCl (Versed Inj) 2 mg IV Q2H PRN PRN Reason: agitation, anxiety Last Admin: 04/14/18 11:01 Dose: 2 mg Pantoprazole Sodium (Protonix Inj) 40 mg IVP DAILY PENNY Last Admin: 04/14/18 09:34 Dose: 40 mg - Labs Labs: 04/14/18 04:45 04/14/18 04:45 PT 25.6 Seconds (9.8-13.1) H 04/10/18 05:21 INR 2.3 04/10/18 05:21 APTT 44.6 Seconds (25.6-37.1) H 04/10/18 05:21 - Constitutional Appears: Chronically Ill - Eye Exam Eye Exam: absent: Scleral icterus - ENT Exam ENT Exam: Mucous Membranes Dry - Neck Exam Neck Exam: absent: Lymphadenopathy - Respiratory Exam Respiratory Exam: Decreased Breath Sounds - Cardiovascular Exam Cardiovascular Exam: REGULAR RHYTHM - GI/Abdominal Exam GI & Abdominal Exam: Distended - Rectal Exam Rectal Exam: Deferred - Exam Exam: NORMAL INSPECTION - Extremities Exam Extremities Exam: absent: Pedal Edema - Back Exam Back Exam: absent: CVA tenderness (L), CVA tenderness (R) - Neurological Exam Neurological Exam: Altered Assessment and Plan (1) Sepsis Status: Acute (2) Sahil gangrene Status: Acute (3) Liver cirrhosis Status: Acute (4) Thrombocytopenia Status: Acute (5) Respiratory failure Status: Acute (6) CHF (congestive heart failure) Status: Acute - Assessment and Plan (Free Text) Assessment: GIVEN IV VANCO X 1 DOSE MERREM REORDERED MAY HAVE ARDS POOR PROGNOSIS
[2018-04-14 12:31] VITALS: RESP 12
--- NOTE | 2018-04-14 13:11 | CP.PCM.PN ---
Subjective - Date & Time of Evaluation Date of Evaluation: 04/14/18 Time of Evaluation: 13:10 - Subjective Subjective: Discused case with Dr Rhodes. Clinically pt has no evidence of abcess At this time. Denae Objective - Vital Signs/Intake and Output Vital Signs (last 24 hours): Temp Pulse Resp BP Pulse Ox 97.8 F 78 12 122/63 100 04/14/18 12:00 04/14/18 12:00 04/14/18 12:00 04/14/18 12:00 04/14/18 12:00 Intake and Output: 04/14/18 04/14/18 06:59 18:59 Intake Total 748 200 Output Total 1250 200 Balance -502 0 - Medications Medications: Current Medications Acetaminophen (Tylenol 325mg Tab) 650 mg PO Q6 PRN PRN Reason: Fever >100.4 F Acetaminophen (Tylenol 650 Mg Supp) 650 mg [place] Q6 PRN PRN Reason: Fever >100.4 F Last Admin: 04/14/18 03:09 Dose: 650 mg Fentanyl (Fentanyl) 50 mcg IVP Q4H PRN PRN Reason: pain, agitation Last Admin: 04/14/18 00:30 Dose: 50 mcg Furosemide (Lasix) 80 mg IVP BID PENNY Last Admin: 04/13/18 17:02 Dose: 80 mg Thiamine HCl 100 mg/ Sodium (Chloride) 101 mls @ 100 mls/hr IV DAILY PENNY Last Admin: 04/14/18 09:34 Dose: 100 mls/hr Meropenem 500 mg/ Sodium (Chloride) 100 mls @ 100 mls/hr IVPB Q8 PENNY; Protocol Last Admin: 04/14/18 09:34 Dose: 100 mls/hr Norepinephrine Bitartrate 8 mg (/ Dextrose) 258 mls @ 9.68 mls/hr IV .Q24H ONE Stop: 04/15/18 06:44 Dexmedetomidine HCl 400 mcg/ (Sodium Chloride) 100 mls @ 32.45 mls/hr IV .Q3H5M ONE; Protocol Stop: 04/14/18 13:44 Last Admin: 04/14/18 11:56 Dose: 1.3 mcg/kg/hr, 32.45 mls/hr Midazolam HCl (Versed Inj) 2 mg IV Q2H PRN PRN Reason: agitation, anxiety Last Admin: 04/14/18 11:01 Dose: 2 mg Pantoprazole Sodium (Protonix Inj) 40 mg IVP DAILY PENNY Last Admin: 04/14/18 09:34 Dose: 40 mg - Labs Labs: 04/14/18 04:45 04/14/18 04:45 PT 25.6 Seconds (9.8-13.1) H 04/10/18 05:21 INR 2.3 04/10/18 05:21 APTT 44.6 Seconds (25.6-37.1) H 04/10/18 05:21
[2018-04-14] MEDS ORDERED: Dexmedetomidine Hydrochloride 400 MCG in Sodium Chloride 0.9% 96 ML IV SCH (14:30)
--- NOTE | 2018-04-14 14:42 | US ---
Date of service: 04/14/2018 HISTORY: cirrhosis COMPARISON: 01/04/2016. CT abdomen and pelvis. TECHNIQUE: Sonographic evaluation of the abdomen. FINDINGS: LIVER: Measures 12.3 cm. Patent portal vein. Portal venous flow: Hepatopetal. Unremarkable echogenicity of the liver parenchyma. No mass. No intrahepatic bile duct dilatation.Incidental finding(s): Simple cyst left hepatic lobe 1.6 x 1.9 x 2.1 cm GALLBLADDER: Status post cholecystectomy. No abnormality is seen in the gallbladder fossa. COMMON BILE DUCT: Not visible obscured by overlying bowel gas. PANCREAS: Obscured by overlying bowel gas. Non diagnostic assessment of the pancreas. RIGHT KIDNEY: Measures 7 x 12.6cm. Normal echogenicity. No calculus, mass, or hydronephrosis. LEFT KIDNEY: Measures 5.9 x 12.3cm. Normal echogenicity. No calculus, mass, or hydronephrosis. SPLEEN: Splenomegaly. Orthogonal measurements 9.5 x 16.8 cm. AORTA: No aneurysmal dilatation. IVC: Unremarkable. OTHER FINDINGS: None. IMPRESSION: No acute findings related to/ accounting for the clinical presentation. Splenomegaly. Limitations of the current examination: Common bile duct and pancreas obscured by overlying bowel gas.
[2018-04-14 16:15] VITALS: BP 130/60; PULSE 80; TEMP 97.3
[2018-04-14 16:49] LABS: HEPATITIS B SURFACE AG Negative (NEGATIVE)
[2018-04-14 16:55] LABS: HEPATITIS A IGM NEGATIVE (NEGATIVE); HEPATITIS B CORE AB NEGATIVE (NEGATIVE)
[2018-04-14] MEDS ORDERED: Acetaminophen 650mg/20.3ml solution UD PO PRN (17:35)
--- NOTE | 2018-04-14 18:03 | CT ---
Date of service: 04/14/2018 PROCEDURE: CT Pelvis without contrast HISTORY: Re-evaluate Sahil's gangrene. COMPARISON: 04/11/2018. CT abdomen and pelvis 04/14/2018 abdominal ultrasound TECHNIQUE: Contiguous axial images of the pelvis . No intravenous or oral contrast given. Coronal and sagittal reformats generated. Radiation dose: Total exam DLP = 1063.79 mGy-cm. This CT exam was performed using one or more of the following dose reduction techniques: Automated exposure control, adjustment of the mA and/or kV according to patient size, and/or use of iterative reconstruction technique. FINDINGS: BLADDER: Air remains in the urinary bladder. The Pierce catheter is been removed. REPRODUCTIVE ORGANS: Air identified in the scrotal sac without discrete, drainable collection. VISUALIZED BOWEL: Unremarkable. PERITONEUM: Unremarkable, as visualized. No free fluid. No free air. LYMPH NODES: Unremarkable. No enlarged lymph nodes. BONES: No fracture or focal lesion. VASCULATURE: No aortic atherosclerotic calcification or mural plaque present. OTHER FINDINGS: Progressive edema and anasarca. Inflammatory changes confined to the rectosigmoid region approximately stable compared to the prior study. There is a tube inserted via the rectum and the tip terminates at the rectosigmoid junction region. Contrast layers in the rectum. IMPRESSION: Persistent air in the scrotal sac. No drainable collection. Approximately stable inflammatory changes in the sigmoid and rectum. Progressive anasarca/subcutaneous edema. Additional benign and/or incidental findings described above.
[2018-04-14] MEDS ORDERED: Phenylephrine 10 mg/ml Inj ONE (18:19)
[2018-04-14 21:22] LABS: HEPATITIS C ANTIBODY REACTIVE (NEGATIVE)
--- NOTE | 2018-04-14 22:18 | CON ---
DATE: 04/14/2018 REFERRING PHYSICIAN: Margarito Tena MD REASON FOR CONSULTATION: Elevated LFTs. HISTORY OF PRESENT ILLNESS: This is a 57-year-old male, who comes in for debridement of Sahil's gangrene. The patient is intubated, sedated. History is obtained from the chart and staff. GI was consulted for elevated LFTs. Currently, the patient is intubated, in no apparent distress. PAST MEDICAL HISTORY: As above. PAST SURGICAL HISTORY: As above. MEDICATIONS: Have been reviewed. REVIEW OF SYSTEMS: All other systems have been reviewed. Negative apart from the HPI. PHYSICAL EXAMINATION: VITAL SIGNS: Here in the hospital, grossly unremarkable. GENERAL: This is a pleasant middle aged male, lying in bed comfortably, in no apparent distress. HEENT: Head: Normocephalic and atraumatic. Eyes: Pupils are equally reactive to light bilaterally. No conjunctival pallor or icterus. NECK: Supple, normal range of motion. No lymphadenopathy appreciated. LUNGS: Coarse breath sounds bilaterally. HEART: S1 and S2, regular rate and rhythm. No murmurs appreciated. ABDOMEN: Soft. Bowel sounds present. No rebound. No guarding. RECTAL: Deferred. NEUROLOGIC: A and O x1. Responds to pain. LABORATORY DATA: All labs and relevant radiology have been reviewed. Labs include a WBC of 7.6, hemoglobin 11.4, hematocrit 36.5. LFTs are trending. stable. Bilirubin 5.6. CAT scan shows colitis. 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 PLAN: Ultrasound is pending. Hepatitis A. B and C is pending. Prognosis guarded. Thank you for the consult. Roel Arechiga MD/ PhD cc: Margarito Tena MD MTDD
--- NOTE | 2018-04-14 23:51 | PN ---
DATE: 04/14/2018 CRITICAL CARE PROGRESS NOTE LOCATION: The patient in ICU, bed 426. TIME SPENT: 45 minutes. SUBJECTIVE: The patient is seen, evaluated at the bedside. Case discussed in Multidisciplinary ICU rounds this morning. Past medical, surgical, family, and social history reviewed. HISTORY OF PRESENT ILLNESS: A 57-year-old male with history significant for diabetes mellitus type 2, hepatitis C, cirrhosis with hepatosplenomegaly, status post cholecystectomy, substance abuse dependence including alcohol, heroin, and cocaine, admitted with pain and swelling of scrotum and groin, noted to have Sahil's gangrene, status post incision and drainage and evacuation of the abscess on postop day #4. Clinical course complicated with respiratory arrest, intubated on mechanical ventilation, sedated on Versed and Precedex. On AC/PRBC rate 12, tidal volume of 500, FIO2 100%, observed rate of 34, exhaled tidal volume 530, minute ventilation 14.4 liters, oxygen saturation 100%, mean airway pressure 17, end-tidal CO2 13. He remains tachypneic with oxygen desaturation on reducing sedation. PHYSICAL EXAMINATION: VITAL SIGNS: Temperature 97.8, heart rate 78, blood pressure 120/65, respiratory rate 29-32, saturation 100%. Intake 1652, output 3050, negative balance 1398. Weight 220 pounds. HEAD, EYES, EARS, NOSE, AND THROAT: Pupils are reactive. Conjunctivae pale. Sclerae muddy. NECK: Supple. Endotracheal tube in place. No secretions. HEART: Rhythm regular. S1, S2 normal. No audible murmur. ABDOMEN: Bowel sounds present. Mildly distended. No guarding. PELVIS: Scrotal area with minimal drainage. Dressing intact. No palpable cord. SKIN: Without rash. EXTREMITIES: DP palpable. NEUROLOGIC: Sedated on Precedex. CURRENT MEDICATIONS: Include: Tylenol 650 every 6 hours p.r.n., Precedex at 1.4 mcg/kg/hour, fentanyl 50 mcg IV push every 4 hours p.r.n. for agitation, Lasix 80 mg IV twice daily, meropenem 500 mg IV every 8 hours, Versed 2 mg IV every 2 hours p.r.n. for agitation, anxiety, Levophed drip at 5 mcg per minute to maintain systolic pressure above 100, Protonix 40 IV daily, and thiamine 100 mg IV daily. LABORATORY DATA: WBC 10.6, hemoglobin 11.4, hematocrit 32.4, platelet count 43. PT 25.6, INR 2.3, PTT 44.6. ABG: pH 7.45, pCO2 39, pO2 67, saturation 96.3, on AC 12, 500, 100%, PEEP of 5. SMA-7: Sodium 141, potassium 4.3, chloride 106, CO2 29, blood urea nitrogen 62, creatinine 2.1, random glucose 61, phosphorus 4.1, magnesium 2.6, total bilirubin 5.6, AST 198, ALT 62, alkaline phosphatase 161, total protein 5.5, albumin 1.6. Urinalysis: Nitrites negative, blood small, rbc 2, wbc 3. Toxicology: Random vancomycin 13.3. Serology, infectious. Rapides assay negative. Microbiology: Wound culture, coagulase-negative staphylococcus. Blood culture, no growth reported. Sputum culture, pending. Nasal smear MRSA, negative. Abdominal ultrasound done this morning, status post cholecystectomy, no abnormality seen in the gallbladder fossa, splenomegaly, pancreas obscured by overlying bowel gas, no intrahepatic bile duct dilatation, a simple cyst in the left hepatic lobe, hepatopetal portal venous flow. IMPRESSION: 1. Neurologic: Septic metabolic encephalopathy, status post brief respiratory arrest and resuscitation, sedated on Precedex and requiring midazolam as needed to reduce agitation. 2. Pulmonary: Acute hypoxic respiratory failure, suspect acute respiratory distress syndrome secondary to underlying Sahil's gangrene. Chest x-ray: Unclear, pulmonary congestion versus infiltrate, intake-output in the negative balance. We will increase the positive end-expiratory pressure to 7, maintain saturation over 94% and PaO2 over 70 as tolerated. Continue Precedex and Versed. Fentanyl as needed to facilitate mechanical ventilation. 3. Infectious disease: Bilateral infiltrate, suspect acute respiratory distress syndrome, status post incision and drainage of Sahil's gangrene. Wound culture positive for Staphylococcus epidermidis, given a dose of vancomycin. Continue meropenem 500 mg intravenous every 8 hours as recommended by Infectious Disease consult. Continue norepinephrine to maintain systolic pressure over 100. Continue thiamine 100 mg daily for suspected ethanol withdrawal/delirium. 4. Renal: [id number] renal insufficiency. Closely monitor recent BUN and creatinine. Reduce diuretic as needed. 5. Gastrointestinal: Elevated liver enzymes. History of alcohol dependence and related liver cirrhosis with hepatosplenomegaly. Being evaluated by Gastroenterology consult. 6. Endocrine: No acute issues. Maintain blood sugar below 180 mg. Head of bed 30 degrees up. Deep venous thrombosis prophylaxis with mechanical device. Appreciate urology followup. Prognosis remains guarded. Juan Antonio Hogan MD
--- NOTE | 2018-04-15 08:38 | PROCN ---
PROCEDURE DATE: 04/14/2018 CARDIOPULMONARY RESUSCITATION NOTE LOCATION: The patient is in ICU, bed 426. The patient is admitted with sepsis secondary to Sahil's gangrene, diabetes mellitus type 2, subsequent acute hypoxic respiratory failure, intubated on mechanical ventilation, on Levophed, Precedex, and Versed as needed. The patient was noted to develop bradycardia followed by asystole. Code was called. CPR was initiated. ACLS protocol followed. The patient could not be resuscitated. The patient was pronounced at 07:05 p.m. Family members were informed who were at the bedside. Juan Antonio Hogan MD
--- NOTE | 2018-04-15 20:21 | CARD ---
APPROVED REPORT Date of service: 04/14/2018 EKG Measurement Heart [id number] <Conclusion> Sinus rhythm with AV dissociation Left axis deviation Right bundle branch block Abnormal ECG
--- NOTE | 2018-04-21 10:10 | OP ---
PROCEDURE DATE: INDICATIONS: The patient is a 57-year-old. I was the co-surgeon with Dr. Philippe. CAT scan showed an abscess in the scrotum, but there was some drainage from the perirectal area, but no contained abscess that we could see on the CAT scan. DESCRIPTION OF PROCEDURE: In lithotomy position after the appropriate time-out, where the patient was identified by the name, name of procedure, laterality and my elizabeth, the area was prepped with Betadine and a lithotomy drape. Dr. Philippe opened the left scrotum and a drain was placed, see the separate dictation. From the rectal part, there was very little infection. Manually, the abscess was opened with finger. Daniella was placed. There were two side pockets that were irrigated and drained. There was a very little infection that I could see. A [id number] Erin was placed through each of this. Rectal exam was otherwise unremarkable. The patient was taken to the recovery room in good condition. Judson Rhodes MD
--- NOTE | 2018-04-22 17:22 | CP.PCM.DIS ---
Provider - Provider Date of Admission: 04/10/18 13:43 Attending physician: Margarito Tena MD Consults: 04/10/18 13:45 Infectious Disease Consult Stat Comment: Consulting Provider: Santhosh Carbajal Consulting Physician: Santhosh Carbajal Reason for Consult: joel gangrene 04/10/18 13:46 Urology Consult Stat Comment: Consulting Provider: Roel Philippe Jr. Consulting Physician: Roel Philippe Jr. Reason for Consult: joel gangrene 04/11/18 01:53 Nursing Referral for Wound Care Routine Comment: Physician Instructions: Reason For Exam: per protocol 04/12/18 12:10 Cardiology Consult Routine Comment: Consulting Provider: Kulwinder Puentes Consulting Physician: Kulwinder Puentes Reason for Consult: s/p cardiac arrest 04/14/18 08:06 Gastroenterology Consult Routine Comment: Consulting Provider: Roel Arechiga Consulting Physician: Roel Arechiga Reason for Consult: abnormal Lft,?cirrhosis Hospital Course - Lab Results Lab Results: Micro Results 04/13/18 16:59 Trachasp Gram Stain - Final 04/13/18 16:59 Trachasp Sputum Culture - Final NORMAL ORAL GARETH 04/10/18 05:45 Blood Blood Culture - Final NO GROWTH AFTER 5 DAYS 04/10/18 05:45 Blood Gram Stain - Final TEST NOT PERFORMED 04/10/18 05:21 Blood Blood Culture - Final NO GROWTH AFTER 5 DAYS 04/10/18 05:21 Blood Gram Stain - Final TEST NOT PERFORMED 04/10/18 11:00 Other: Please Indicate Gram Stain - Final 04/10/18 11:00 Other: Please Indicate Wound Culture - Final Coagulase Neg Staphylococcus 04/10/18 11:00 Other: Please Indicate Gram Stain - Final 04/10/18 11:00 Other: Please Indicate Wound Culture - Final Coagulase Neg Staphylococcus 04/11/18 14:34 Naris MRSA Culture (Admit) - Final MRSA NOT DETECTED Most Recent Lab Values WBC 10.6 K/uL (4.8-10.8) 04/14/18 04:45 RBC 2.91 Mil/uL (4.40-5.90) L 04/14/18 04:45 Hgb 11.4 g/dL (12.0-18.0) L 04/14/18 04:45 Hct 32.5 % (35.0-51.0) L 04/14/18 04:45 MCV 111.7 fl (80.0-94.0) H D 04/14/18 04:45 MCH 39.1 pg (27.0-31.0) H 04/14/18 04:45 MCHC 35.0 g/dL (33.0-37.0) 04/14/18 04:45 RDW 20.4 % (11.5-14.5) H 04/14/18 04:45 Plt Count 43 K/uL (130-400) L 04/14/18 04:45 MPV 7.8 fl (7.2-11.7) 04/13/18 08:30 Neut % (Auto) 90.9 % (50.0-75.0) H 04/13/18 08:30 Lymph % (Auto) 3.7 % (20.0-40.0) L 04/13/18 08:30 [place] % (Auto) 5.1 % (0.0-10.0) 04/13/18 08:30 Eos % (Auto) 0.1 % (0.0-4.0) 04/13/18 08:30 Baso % (Auto) 0.2 % (0.0-2.0) 04/13/18 08:30 Neut # (Auto) 11.6 K/uL (1.8-7.0) H 04/13/18 08:30 Lymph # (Auto) 0.5 K/uL (1.0-4.3) L 04/13/18 08:30 [place] # (Auto) 0.6 K/uL (0.0-0.8) 04/13/18 08:30 Eos # (Auto) 0.0 K/uL (0.0-0.7) 04/13/18 08:30 Baso # (Auto) 0.0 K/uL (0.0-0.2) 04/13/18 08:30 Neutrophils % (Manual) 93 % (42-75) H 04/13/18 08:30 Band Neutrophils % 2 % (0-2) 04/10/18 05:21 Lymphocytes % (Manual) 3 % (20-50) L 04/13/18 08:30 Reactive Lymphs % 1 % (0-0) H 04/10/18 05:21 Monocytes % (Manual) 4 % (0-10) 04/13/18 08:30 Eosinophils % (Manual) 1 % (0-7) 04/10/18 05:21 Platelet Estimate Normal (NORMAL) 04/13/18 08:30 Anisocytosis (manual) Moderate 04/13/18 08:30 Macrocytosis (manual) Moderate 04/13/18 08:30 Ovalocytes Slight 04/13/18 08:30 Schistocytes Slight 04/13/18 08:30 PT 25.6 Seconds (9.8-13.1) H 04/10/18 05:21 INR 2.3 04/10/18 05:21 APTT 44.6 Seconds (25.6-37.1) H 04/10/18 05:21 pCO2 39 mm/Hg (35-45) 04/14/18 05:14 pO2 67 mm/Hg (80-100) L 04/14/18 05:14 HCO3 27.1 mmol/L (21-28) 04/14/18 05:14 ABG pH 7.45 (7.35-7.45) 04/14/18 05:14 ABG Total CO2 28.3 mmol/L (22-28) H 04/14/18 05:14 ABG O2 Saturation 96.3 % (95-98) 04/14/18 05:14 ABG O2 Content 15.9 ML/dL (15-23) 04/14/18 05:14 ABG Base Excess 2.9 mmol/L (-2.0-3.0) 04/14/18 05:14 ABG Hemoglobin 12.2 g/dL (11.7-17.4) 04/14/18 05:14 ABG Carboxyhemoglobin 2.5 % (0.5-1.5) H 04/14/18 05:14 POC ABG HHb (Measured) 3.6 % (0.0-5.0) 04/14/18 05:14 ABG Methemoglobin 1.4 % (0.0-3.0) 04/14/18 05:14 ABG O2 Capacity 16.5 mL/dL (16-24) 04/14/18 05:14 David Test Yes 04/14/18 05:14 ABG Potassium 5.0 mmol/L (3.6-5.2) 04/12/18 04:22 A-a O2 Difference 597.0 mm/Hg 04/14/18 05:14 Hgb O2 Saturation 92.5 % (95.0-98.0) L 04/14/18 05:14 Sodium 134.0 mmol/L (132-148) 04/12/18 04:22 Chloride 103.0 mmol/L (98-107) 04/12/18 04:22 Glucose 116 mg/dL (75-110) H 04/12/18 04:22 Lactate 11.7 mmol/L (0.7-2.1) H* 04/12/18 04:22 Liter Flow 30 04/11/18 22:24 Vent Mode Prvc ac 04/14/18 05:14 Mechanical Rate 12 04/14/18 05:14 FiO2 100.0 % 04/14/18 05:14 Tidal Volume 500 04/14/18 05:14 PEEP 5 04/14/18 05:14 Blood Gas Comments Prvc/ac12/vt500/100%/+5peep 04/13/18 06:37 Crit Value Called To Dr. darron luu 04/13/18 06:37 Crit Value Called By Dimpel 04/13/18 06:37 Crit Value Read Back Y 04/13/18 06:37 Blood Gas Notified Time 835 04/13/18 06:37 Sodium 141 mmol/l (132-148) 04/14/18 04:45 Potassium 4.3 MMOL/L (3.6-5.0) 04/14/18 04:45 Chloride 106 mmol/L (98-107) 04/14/18 04:45 Carbon Dioxide 29 mmol/L (22-30) 04/14/18 04:45 Anion Gap 10 (10-20) 04/14/18 04:45 BUN 62 mg/dl (9-20) H 04/14/18 04:45 Creatinine 2.1 mg/dl (0.8-1.5) H 04/14/18 04:45 Est GFR ( Amer) 39 04/14/18 04:45 Est GFR (Non-Af Amer) 33 04/14/18 04:45 POC Glucose (mg/dL) 75 mg/dL (65-110) 04/11/18 10:46 Random Glucose 61 mg/dL (75-110) L 04/14/18 04:45 Lactic Acid 10.8 MMOL/L (0.7-2.1) H* 04/12/18 04:30 Calcium 6.9 mg/dL (8.4-10.2) L 04/14/18 04:45 Phosphorus 4.1 mg/dl (2.5-4.5) 04/14/18 04:45 Magnesium 2.6 MG/DL (1.6-2.3) H 04/14/18 04:45 Total Bilirubin 5.6 mg/dl (0.2-1.3) H 04/14/18 04:45 AST 198 U/L (17-59) H 04/14/18 04:45 ALT 62 U/L (21-72) 04/14/18 04:45 Alkaline Phosphatase 161 U/L (38-126) H 04/14/18 04:45 Ammonia 40 umo/L (16-60) 04/14/18 11:15 Total Protein 5.5 G/DL (6.3-8.2) L 04/14/18 04:45 Albumin 1.6 g/dL (3.5-5.0) L 04/14/18 04:45 Globulin 3.9 gm/dL (2.2-3.9) 04/14/18 04:45 Albumin/Globulin Ratio 0.4 (1.0-2.1) L 04/14/18 04:45 Lipase 228 U/L (23-300) 04/10/18 05:21 Ethanolamine None detected 04/11/18 12:13 Arterial Blood Potassium 5.0 mmol/L (3.6-5.2) 04/12/18 04:22 Urine Color [place] (YELLOW) 04/10/18 12:30 Urine Clarity Clear (Clear) 04/10/18 12:30 Urine pH 6.0 (5.0-8.0) 04/10/18 12:30 Ur Specific [place] 1.036 (1.003-1.030) H 04/10/18 12:30 Urine Protein Negative mg/dL (NEGATIVE) 04/10/18 12:30 Urine Glucose (UA) Neg mg/dL (NEGATIVE) 04/10/18 12:30 Urine Ketones Negative mg/dL (NEGATIVE) 04/10/18 12:30 Urine Blood Small (NEGATIVE) 04/10/18 12:30 Urine Nitrate Negative (NEGATIVE) 04/10/18 12:30 Urine Bilirubin Small (NEGATIVE) 04/10/18 12:30 Urine Urobilinogen 4.0 mg/dL (0.2-1.0) 04/10/18 12:30 Ur Leukocyte Esterase Neg Justin/uL (Negative) 04/10/18 12:30 Urine RBC (Auto) 2 /hpf (0-3) 04/10/18 12:30 Urine Microscopic WBC 3 /hpf (0-5) 04/10/18 12:30 Random Vancomycin 13.3 ug/mL 04/14/18 04:45 Toxicology Panel see note 04/11/18 12:13 Methyl Alcohol Level None detected 04/11/18 12:13 Isopropanol None detected 04/11/18 12:13 Acetone Level None detected 04/11/18 12:13 Hepatitis A IgM Ab Negative (NEGATIVE) 04/14/18 12:18 Hep Bs Antigen Negative (NEGATIVE) 04/14/18 12:18 Hep B Core IgM Ab Negative (NEGATIVE) 04/14/18 12:18 Hepatitis C Antibody Reactive (NEGATIVE) 04/14/18 12:18 Infectious [place] Assay Negative (NEGATIVE) 04/10/18 05:21 Blood Type B POSITIVE 04/10/18 15:45 Blood Type Confirm B POSITIVE 04/10/18 16:05 Antibody Screen Negative 04/10/18 15:45 Crossmatch See Detail 04/10/18 15:45 BBK History Checked No verified bt 04/10/18 15:45 Discharge Exam - Head Exam Head Exam: NORMOCEPHALIC Discharge Plan - Follow Up Plan Condition: FAIR Disposition: WITH WITHOUT AUTOPSY
--- NOTE | 2018-04-22 17:23 | CP.PCM.PN ---
Subjective - Date & Time of Evaluation Date of Evaluation: 04/12/18 Time of Evaluation: 10:00
--- NOTE | 2018-04-22 17:24 | CP.PCM.PN ---
Subjective - Date & Time of Evaluation Date of Evaluation: 04/13/18 Time of Evaluation: 11:00
--- NOTE | 2018-04-22 17:25 | CP.PCM.PN ---
Subjective - Date & Time of Evaluation Date of Evaluation: 04/14/18 Time of Evaluation: 11:00
--- NOTE | 2018-04-24 08:06 | OP ---
PROCEDURE DATE: 04/10/2018 The patient is at [facility]. LOCATION OF SURGERY: [facility]. I am co-surgeon with Dr. Rhodes. PREOPERATIVE DIAGNOSES: Perineal abscess and possible scrotal abscess. POSTOPERATIVE DIAGNOSES: Perineal abscess and possible scrotal abscess. PROCEDURE: Scrotal exploration and perineal exploration by Dr. Rhodes. SURGEON: Roel Philippe MD DESCRIPTION OF PROCEDURE: The procedure is as follows: The patient was asked to sign a detailed informed consent prior to the procedure as well as all risks and complications of the procedure were reviewed with him. Alternate methods of dealing with perianal abscess and scrotal abscess were reviewed. The patient signed the consent and was willing to accept the risks. He was brought in to the room and placed in a lithotomy position. After careful draping and prepping, a time-out was taken, according to the rules and regulations of [facility]. A median raphe incision was made in the scrotum from the perineum upwards to the mid scrotum. This allowed access to the scrotum. The left hemiscrotum was entered. The testicle was visualized. There was a hydrocele. The hydrocele was opened, drained. The fluid did not appear grossly infected. The cultures for both anaerobes and aerobes were taken. The other hemiscrotum showed no evidence of scrotal enlargement. The median raphe was punctured and no fluid drained. The area was irrigated copiously with antibiotic solution and the scrotal wound was closed loosely with 2-0 chromic suture using a mattress suture. A Melo-Chandler drain was left in the scrotum and connected with the suction device provided. Then, the case was handed over to Dr. Rhodes, who proceeded to explore the perineum through the opening that had already been created by the draining abscess. The rest of the information is contained in Dr. Rhodes's dictation. The patient tolerated the procedure well and was sent to the recovery room in good condition. Roel Philippe MD
== END 2018-04-14 22:05 | DRG 727 ==
LOC: H.ER 04:06 → H.ERHOLD 13:43 → H.TEL 22:24 → H.ICU/CCU 04-11 10:44
PROVIDERS: ADMIT Family Medicine; ATTEND Family Medicine
PROC: 0V9500Z Drainage of Scrotum with Drainage Device, Open Approach (ICD-10-PCS; 2018-04-10)
PROC: 0WJM0ZZ Inspection of Male Perineum, Open Approach (ICD-10-PCS; 2018-04-10)
PROC: 30233M1 Transfusion of Nonautologous Plasma Cryoprecipitate into Peripheral Vein, Percutaneous Approach (ICD-10-PCS; 2018-04-10 18:00)
PROC: 30233N1 Transfusion of Nonautologous Red Blood Cells into Peripheral Vein, Percutaneous Approach (ICD-10-PCS; 2018-04-11)
PROC: 0BH17EZ Insertion of Endotracheal Airway into Trachea, Via Natural or Artificial Opening (ICD-10-PCS; principal; 2018-04-12)
PROC: 5A1945Z Respiratory Ventilation, 24-96 Consecutive Hours (ICD-10-PCS; 2018-04-12)
PROC: 05HM33Z Insertion of Infusion Device into Right Internal Jugular Vein, Percutaneous Approach (ICD-10-PCS; 2018-04-12)
DX: N49.3 Fournier gangrene (principal); A41.9 Sepsis, unspecified organism; J96.01 Acute respiratory failure with hypoxia; G93.41 Metabolic encephalopathy; F10.239 Alcohol dependence with withdrawal, unspecified; E11.52 Type 2 diabetes mellitus with diabetic peripheral angiopathy with gangrene; I13.0 Hypertensive heart and chronic kidney disease with heart failure and stage 1 through stage 4 chronic kidney disease, or unspecified chronic kidney disease; L02.215 Cutaneous abscess of perineum; L03.311 Cellulitis of abdominal wall; I46.9 Cardiac arrest, cause unspecified; F19.90 Other psychoactive substance use, unspecified, uncomplicated; D69.59 Other secondary thrombocytopenia; B19.20 Unspecified viral hepatitis C without hepatic coma; E11.22 Type 2 diabetes mellitus with diabetic chronic kidney disease; E66.01 Morbid (severe) obesity due to excess calories; Z68.32 Body mass index [BMI] 32.0-32.9, adult; I50.9 Heart failure, unspecified; I86.1 Scrotal varices; K52.9 Noninfective gastroenteritis and colitis, unspecified; K70.30 Alcoholic cirrhosis of liver without ascites; N18.9 Chronic kidney disease, unspecified; N49.2 Inflammatory disorders of scrotum; F17.200 Nicotine dependence, unspecified, uncomplicated; Z90.49 Acquired absence of other specified parts of digestive tract; F12.90 Cannabis use, unspecified, uncomplicated; F14.10 Cocaine abuse, uncomplicated; I95.9 Hypotension, unspecified; R00.0 Tachycardia, unspecified; R45.1 Restlessness and agitation; R74.8 Abnormal levels of other serum enzymes